=== PATIENT | female | born 1940 | race Caucasian/White ===

== ENCOUNTER 2020-07-10 07:29 | Emergency (ER) | payer MEDICARE, SELFPAY ==
--- NOTE | ~2020-07-10 | CT_ITS ---
EXAMINATION: CT hip LT wo con DATE: 07/10/2020 10:39 INDICATION: Left hip pain post fall TECHNIQUE: High resolution computed tomography (CT) of the left hip was performed without intravenous contrast. Additional sagittal and coronal reconstructions were performed. Automated exposure control and iterative reconstruction technique were employed. The dose-length product was 160.98 mGy-cm. COMPARISON: Left hip radiographs dated 07/10/2020 FINDINGS: 4 mm retrolisthesis L5 on S1 with severe associated disc height loss.. Bone alignment is otherwise no rmal. No fracture. Mild chondrocalcinosis and very mild osteoarthritis at the left hip. No left hip j oint effusion. Small amount of enthesopathic ossification at the ischial tuberosity origin of the lef t proximal hamstring tendons. Visualized portion of the bowels, uterus and bladder are unremarkable. No pathologically enlarged left pelvic or inguinal lymphadenopathy. IMPRESSION: 1. No fracture or other acute osseous abnormality. Reviewed, dictated and finalized at location A. [employer]
--- NOTE | ~2020-07-10 | XR_ITS ---
EXAMINATION: XR hip LT 2V w AP pelvis DATE: 07/10/2020 07:54 INDICATION: Left hip pain post fall TECHNIQUE: Anteroposterior view of the pelvis and anteroposterior and frog-leg lateral views of the l eft hip were obtained. COMPARISON: None. FINDINGS: Suggestion of a partially visualized mild lumbar levocurvature with likely moderate lower lumbar spon dylosis. Bone alignment is otherwise normal. No fracture. Mild chondrocalcinosis and mild osteoarthri tis at the bilateral hips. Soft tissues are unremarkable. IMPRESSION: 1. No acute osseous abnormality. Reviewed, dictated and finalized at location A. [employer]
[2020-07-10 07:30] VITALS: BP 172/87; PULSE 72; RESP 16; TEMP 36.6; O2SAT 99
--- NOTE | 2020-07-10 07:35 | ED.FALL ---
HPI - Fall General Chief Complaint: Extremity Injury, Lower Stated Complaint: fall/left hip pain Time Seen by Provider: 07/10/20 07:35 History of Present Illness HPI Narrative: 79 yo female w/ h/o RA presents to the ED for hip pain. She has pain in the left hip 2/2 to a fall yesterday. She had mild/moderate pain immediately after the fall and was able to ambulate without difficulty. When she awoke the next morning she had significantly more pain and was not able to ambulate. No numbness, weakness, wound. Related Data Home Medications Medication Instructions Recorded Confirmed etanercept [Enbrel] SUBCUT 07/10/20 folic acid 07/10/20 Allergies Allergy/AdvReac Type Severity Reaction Status Date / Time leflunomide [From Arava] Allergy Unknown Verified 07/12/20 11:17 Review of Systems Review of Systems: All systems reviewed & are unremarkable except as noted in HPI and below Constitutional: Constitutional: Denies chills, Denies fever(s) and Denies weakness Eyes: Eyes: Reports no additional eye complaints Cardiovascular: Cardiovascular: Denies chest pain Respiratory: Respiratory: Denies cough and Denies dyspnea Gastrointestinal: Gastrointestinal: Denies abdominal pain, Denies nausea and Denies vomiting Genitourinary: Genitourinary: Denies hematuria, Denies dysuria and Denies flank pain Musculoskeletal: Musculoskeletal: Denies back pain Neurologic: Denies confusion, Denies dizziness, Denies syncope, Denies numbness and Denies weakness Hematologic/Lymphatic: Hematologic/Lymphatic: Denies easy bleeding and Denies easy bruising [facility] Past Medical History Medical History (Updated 07/12/20 @ 13:07 by Adán Muñoz MD) Rheumatoid arteritis Social History Social History (Updated 07/12/20 @ 13:09 by Adán Muñoz MD) Smoking status: Never smoker Living arrangements: alone Exam Const: General: healthy appearing, no acute distress and alert Orientation/consciousness: patient oriented x3 HENMT: Head: normal to inspection Resp: Effort & Inspection: normal respiratory effort Auscultation: clear to auscultation bilaterally, no rales, no rhonchi and no wheezes Cardio: Jugular venous distension: no JVD Rate: regular rate Rhythm: regular rhythm Heart sounds: no murmurs GI: Inspection: non-distended GI Palp: Yes Soft to palpation and No Tenderness to palpation present (GI) Skin: General skin exam: normal color Wounds: no wounds Other: no bruising Neuro: General: patient oriented x3, moves all extremities, no focal motor deficits and CN's II-XI intact bilaterally Speech: normal speech Gait exam (Neuro): Normal gait present Extrem: General: normal to inspection Other: left hip tenderness Psych: Appearance: well kempt Affect: normal affect Course Vital Signs Vital signs: Vital Signs Temperature 36.6 C 07/10/20 07:30 Pulse Rate 72 07/10/20 07:30 Respiratory Rate 16 07/10/20 07:30 Blood Pressure 172/87 H 07/10/20 07:30 Pulse Oximetry 99 07/10/20 07:30 Temperature 36.6 C 07/10/20 07:30 Pulse Rate 82 07/10/20 11:40 Respiratory Rate 16 07/10/20 11:40 Blood Pressure 152/73 H 07/10/20 11:40 Pulse Oximetry 100 07/10/20 11:40 MDM - Fall MDM Narrative Medical decision making narrative: No fracture on x-ray. Pain seemed out of proportion. CT done to r/o occult fracture. Also negative. Ambulating without issue after nrco. Imaging Data Radiologist's impression: ITS Impressions Hip/Pelvis X-Ray 07/10/20 07:55 IMPRESSION: 1. No acute osseous abnormality. Hip CT 07/10/20 10:43 IMPRESSION: 1. No fracture or other acute osseous abnormality. Discharge Plan Discharge Clinical Impression: Contusion of left hip Patient Disposition: Home, Self-Care Condition: Stable Instructions: Hip Pain (ED) Prescriptions: New hydrocodone-acetaminophen 5-325 mg tablet 1 tablet PO Q6H PRN (Reason: pain) Qty: 10 RF: 0
[2020-07-10] MEDS: traMADol HCL (*CRX) 50 MG TABLET PO (08:00)
[2020-07-10] MEDS: HYDROcodone/acetaminophen (*CRX) 5-325 MG TABLET 1 TAB PO (10:25)
[2020-07-10 11:40] VITALS: BP 152/73; PULSE 82; RESP 16; O2SAT 100
== END 2020-07-10 11:40 | disposition home or self-care (01) ==
PROVIDERS: Emergency Provider Emergency Medicine; PCP Emergency Medicine
DX: S70.02XA Contusion of left hip, initial encounter (principal); W19.XXXA Unspecified fall, initial encounter
CPT/HCPCS: 73502; 73700; 99284; A9270

== ENCOUNTER 2020-07-12 10:59 | Emergency (ER) | payer MEDICARE, SELFPAY ==
[2020-07-12 11:02] VITALS: BP 177/102; PULSE 100; RESP 20; TEMP 36.6; O2SAT 100
--- NOTE | 2020-07-12 12:30 | PC.NURSE ---
called to patients bedside while providing care for patient in ajoining room. patient told this nurse that she has been in the er for an hour and is a great deal of pain and that a doctor has not been in to see her. this nurse explained to patient that md was involved in a full arrest for which the patient responded well i was here first
[2020-07-12] MEDS: oxyCODONE/ACETAMINOPHEN (*CRX) 5-325 MG TABLET 1 TABLET PO (12:53)
--- NOTE | 2020-07-12 13:04 | ED.LOWEXIN ---
HPI - Extremity Injury (Lower) General Chief Complaint: Extremity Injury, Lower Stated Complaint: hip pain Time Seen by Provider: 07/12/20 11:59 History of Present Illness HPI Narrative: Patient is a 79-year-old female who presents ER with left hip pain. Reports she fell on 07/09/2020. She fell directly onto her buttock/left hip. She came to the ER a day later to be evaluated. At that time she had an x-ray performed of her left hip and also had a CT scan of her left hip performed. She is prescribed [place] for home. She reports the [place] did not help her pain so she followed up with her PCP who told her to take her home meloxicam and then also prescribed a muscle relaxer. Patient reports pain is worse when she is attempting to sit and stand up. She has no focal weakness to the leg and she is not having numbness at this time. She did briefly have some shooting pain from her hip to her knee that was relieved with the muscle relaxer prescribed by her primary care office. She denies any development of bruising to her lower extremity or buttock. She has no saddle anesthesia or inability to urinate/stool. Related Data Home Medications Medication Instructions Recorded Confirmed etanercept [Enbrel] SUBCUT 07/10/20 folic acid 07/10/20 Allergies Allergy/AdvReac Type Severity Reaction Status Date / Time leflunomide [From Arava] Allergy Unknown Verified 07/12/20 11:17 Review of Systems Genitourinary: Genitourinary: Denies urinary incontinence Musculoskeletal: Musculoskeletal: Denies back pain, Reports arthralgias, Denies joint swelling and Reports muscle cramps Neurologic: Denies focal weakness and Denies numbness PMFSH Past Medical History Medical History (Updated 07/12/20 @ 14:49 by Oscar Olson MD) Rheumatoid arteritis Social History Social History (Updated 07/12/20 @ 13:09 by Adán Muñoz MD) Smoking status: Never smoker Living arrangements: alone Exam Narrative: Exam Narrative: GENERAL: Well-appearing, well-nourished, and in no acute distress. HEAD: Normocephalic, atraumatic. EXTREMITIES: Focused exam left lower extremity reveals that patient has full range of motion of the ankle/knee/hip. She has no reproducible tenderness with palpation at the hip. There is no evidence of bruising. Patient is able to perform straight leg raise without any issue or hesitation. Patient was ambulatory to the room in the ER. Back: No midline tenderness of the lumbar spine or sacral spine. No visual evidence of trauma. No paraspinal muscular tenderness in the lumbar sacral region. No gluteal tenderness. SKIN: Warm, dry, no rash. NEURO: Alert and oriented x3.. Course Course Emergency Course: Patient given a dose of Percocet while in the ER. I reviewed the x-rays and CT scans performed on her previous visit. Patient seems to have an unreasonable expectation for pain management given the fact that she is received narcotics outpatient as well as anti-inflammatories muscle relaxers. Patient is able to perform her activities of daily living including walking around and taking herself to the bathroom. Patient also is upset that she had arrived to the ER and was not seen before a cardiac arrest that arrived after her. Discussed with patient I feel her pain should continue to be treated with her Reevaluation(s) Reevaluation #1: Not much relief with percocet. Significantly improved with toradol IM. Has already scheduled f/u with Dr. Queen next week. Recommend patient continue come meloxicam and cyclobenzaprine. Discussed that pain is responsive to anti-inflammatory medications given improvement with toradol. Discussed I would not discharge her with ketorolac as I feel this is a particularly strong anti-inflammatory that could cause stomach ulcerations as well as kidney injury taken for a prolonged period. Feel meloxicam is a safer medication for this patient. Discussed that patient could have periosteal contusion or potent
--- NOTE | 2020-07-12 13:21 | PC.NURSE ---
1253- took pain pill into patient. Patient asked if we could give her something IV instead. Informed her I would ask the MD. Dr. Olson aware and advised to give po pain pill. Pt response was I would prefer something IV now I am going to have to lay here and wait for it to help
[2020-07-12 13:29] VITALS: BP 189/84; PULSE 82
[2020-07-12 13:30] VITALS: BP 192/89; PULSE 93
[2020-07-12 13:32] VITALS: BP 173/101; PULSE 99
[2020-07-12] MEDS: KETOROLAC 30 MG/ML VIAL (*BKC) IM (13:41)
== END 2020-07-12 15:03 | disposition home or self-care (01) ==
PROVIDERS: Emergency Provider Emergency Medicine; PCP Emergency Medicine
DX: S70.02XA Contusion of left hip, initial encounter (principal); W19.XXXA Unspecified fall, initial encounter
CPT/HCPCS: 96372; 99283; A9270; J1885

== ENCOUNTER 2021-10-02 09:37 | Outpatient (CLI) | payer MEDICARE, SELFPAY ==
[2021-10-02 16:41] LABS: Albumin Level 4.1 g/dL (3.5-5.1); Anion Gap 9 mmol/L (8-16); Blood Urea Nitrogen 15 mg/dL (7-17); Calcium 9.2 mg/dL (8.4-10.2); Carbon Dioxide 27 mmol/L (22-30); Chloride 100 mmol/L (98-107); Estimated Glomerular Filt Rate > 60; Glucose 100 mg/dL (65-110); Phosphorus 3.5 mg/dL (2.5-4.5); Potassium 4.7 mmol/L (3.4-5.0); Sodium 136 mmol/L (137-145)
[2021-10-02 16:53] LABS: Parathyroid Intact 57.1 pg/mL (7.5-53.5)
[2021-10-02 16:57] LABS: Free T4 Free Thyroxine 1.18 ng/mL (0.78-2.19)
[2021-10-02 17:12] LABS: Thyroid Stimulating Hormone 0.936 uIU/mL (0.465-4.680)
== END 2021-10-02 09:38 | disposition home or self-care (01) ==
LOC: ANHWCLAB 09:40
PROVIDERS: PCP Family Medicine; Referring Provider Internal Medicine Endocrinology, Diabetes & Metabolism; Visit Provider Internal Medicine Endocrinology, Diabetes & Metabolism
DX: R79.89 Other specified abnormal findings of blood chemistry (principal); D47.2 Monoclonal gammopathy; E04.1 Nontoxic single thyroid nodule; M81.0 Age-related osteoporosis without current pathological fracture
CPT/HCPCS: 36415; 80069; 82306; 83970; 84439; 84443

== ENCOUNTER 2021-10-23 14:02 | Outpatient (CLI) | payer MEDICARE, SELFPAY ==
--- NOTE | ~2021-10-23 | XR_ITS ---
XR chest 2V 10/23/2021 14:21 Indication: Cough, fever and chills Procedure: 2 view chest Comparison: No prior studies for comparison. Findings: Bibasilar airspace disease. Cardiomegaly. There is atherosclerosis and ectasia of the aorta . No acute osseous abnormality. Impression: 1: Bibasilar infiltrates may represent atelectasis/scarring or pneumonia. Reviewed, dictated and finalized at location B. Impression: 1: Bibasilar infiltrates may represent atelectasis/scarring or pneumonia.
== END 2021-10-23 14:03 | disposition home or self-care (01) ==
PROVIDERS: PCP Family Medicine; Visit Provider Nurse Practitioner Family
DX: R05.9 Cough, unspecified (principal); R91.8 Other nonspecific abnormal finding of lung field
CPT/HCPCS: 71046

== ENCOUNTER 2021-11-01 10:12 | Emergency (ER) | payer MEDICARE, SELFPAY ==
--- NOTE | ~2021-11-01 | XR_ITS ---
XR chest 2V DATE: 11/01/2021 11:03 INDICATION: Cough, fever for 1.5 weeks. Nonsmoker. TECHNIQUE: 2 views COMPARISON: 10/23/2021 PA and lateral chest FINDINGS: Bilateral hyperinflation. There is mild discoid atelectasis or scarring at the right lung b ase. No pulmonary infiltrate or consolidation, pleural effusion or pulmonary vascular congestion or p neumothorax is detected. Heart size appears within normal limits. No hilar or mediastinal enlargement . Aortic arch calcification. There is osteopenia. There is mild dextroscoliosis of the thoracic spine and levoscoliosis of the lum bar spine. IMPRESSION: Bilateral hyperinflation; no active cardiopulmonary disease Reviewed, dictated and finalized at location A.
[2021-11-01 10:25] VITALS: BP 153/72; PULSE 86; RESP 20; TEMP 37.2; O2SAT 100
--- NOTE | 2021-11-01 10:50 | ED.GENADULT ---
HPI - General Adult General Chief complaint: Upper Respiratory Infection Stated complaint: fever/chills Source: patient Mode of arrival: ambulatory Limitations: no limitations History of Present Illness HPI narrative: Patient presents for evaluation of fever. She states she was on a trip to [facility] on 10/16/21 where she was out boating. She states that same day she developed chills. She returned home on 10/18/21 and took a home COVID test on 10/19/21 which was negative. She contacted her primary care provider's office and received a prescription for an antitussive with codeine. She repeated her test on 10/22/21 which was also negative. She went to see her PCP on 10/23/21 and had mono, strep and flu which were negative. CXR showed bibasilar infiltrates. She was given a script for cefdinir which she has been taking as directed. She states her cough has improved. She continues to have chills. Last night she had a low grade fever of 100.1F. She denies sore throat, otalgia, shortness of breath, nausea, vomiting and diarrhea. No personal hx of COVID. She received her COVID vaccinations and two boosters. Overall, she feels weak and run-down. Related Data Home Medications Medication Instructions Recorded Confirmed calcium carbonate 600 mg-vitamin 1 tablet PO .QD 07/25/21 11/05/21 D3 10 mcg (400 unit) chewable tablet (Calcium 600 with Vitamin D3) cholecalciferol (vitamin D3) 25 25 mcg PO DAILY 07/25/21 11/05/21 mcg (1,000 unit) capsule Allergies Allergy/AdvReac Type Severity Reaction Status Date / Time leflunomide [From Arava] Allergy Unknown Verified 11/24/21 09:48 benzonatate AdvReac Intermediate n/a Verified 11/24/21 09:48 Review of Systems Review of Systems: CONSTITUTIONAL: Reports fever and chills. EYES: Denies visual changes, redness, or discharge. ENT: Denies rhinorrhea, congestion, sore throat, or otalgia. CARDIOVASCULAR: Denies chest pain, palpitations, or edema. RESPIRATORY: Denies cough or dyspnea. GASTROINTESTINAL: Denies abdominal pain, nausea, vomiting, or diarrhea. GENITOURINARY: Denies dysuria or hematuria. SKIN: Denies rash or itching. MUSCULOSKELETAL: Denies back pain, joint pain, or myalgia. NEUROLOGIC: Reports generalized weakness. Denies headache, numbness, dizziness PSYCHIATRIC: Denies anxiety or depression. 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 HEAD: Normocephalic, atraumatic. EYES: PERRLA and EOMI. ENT: Nares clear, no rhinorrhea or epistaxis. Mucous membranes moist. Oropharynx without tonsillar hypertrophy exudate or other lesions. Bilateral TMs pearly brewer nonbulging NECK: Supple. No adenopathy or masses. No carotid bruits or JVD CHEST: Clear to auscultation. No respiratory distress. No wheezes rales or rhonchi HEART: Regular rate and rhythm. No murmur heard. Normal peripheral pulses. ABDOMEN: Soft, nontender
== END 2021-11-01 11:27 | disposition home or self-care (01) ==
PROVIDERS: Emergency Provider Nurse Practitioner; PCP Family Medicine
DX: Z87.01 Personal history of pneumonia (recurrent) (principal); Z20.822 Contact with and (suspected) exposure to COVID-19; I10 Essential (primary) hypertension; M81.0 Age-related osteoporosis without current pathological fracture; M06.9 Rheumatoid arthritis, unspecified
CPT/HCPCS: 71046; 87081; 87426; 87804; 87880; 99213; C9803; G0463

== ENCOUNTER 2021-11-24 15:43 | Outpatient (CLI) | payer MEDICARE, SELFPAY ==
--- NOTE | ~2021-11-24 | US_ITS ---
EXAMINATION: US thyroid DATE: 11/24/2021 16:05 INDICATION: Monoclonal gammopathy TECHNIQUE: Multiple ultrasound images of the thyroid were obtained. COMPARISON: None. FINDINGS: The right thyroid lobe measures 4.7 x 1.7 x 1.6 cm. The left thyroid lobe measures 3.9 x 1.3 x 1.2 c m. There are multiple bilateral thyroid nodules, many of which are TI-RADS 1 cystic or almost entire ly cystic with peripheral small echogenic foci with comet tail artifact likely representing colloid c yst with inspissated colloid. There is a 1 cm wider than predominantly solid hypoechoic nodule with s mooth margins and with few peripheral tiny echogenic foci (TI-RADS 5, highly suspicious , FNA if >=1. 0 cm, annual followup is >0.5 cm). There are a few additional smaller solid or predominantly solid no dules, the next largest measuring 5 mm in the left thyroid. IMPRESSION: 1. Multinodular goiter. Recommend ultrasound-guided biopsy of the largest 1 cm TI RADS 5 nodule in th e right thyroid lobe. Reviewed, dictated and finalized at location B. IMPRESSION: 1. Multinodular goiter. Recommend ultrasound-guided biopsy of the largest 1 cm TI RADS 5 nodule in the right thyroid lobe.
== END 2021-11-24 15:44 | disposition home or self-care (01) ==
LOC: ANHIMG 15:46
PROVIDERS: PCP Family Medicine; Visit Provider Internal Medicine Endocrinology, Diabetes & Metabolism
DX: E04.2 Nontoxic multinodular goiter (principal); M81.0 Age-related osteoporosis without current pathological fracture; D47.2 Monoclonal gammopathy
CPT/HCPCS: 76536

== ENCOUNTER 2021-11-25 12:46 | Outpatient (CLI) | payer MEDICARE, SELFPAY ==
--- NOTE | ~2021-11-25 | XR_ITS ---
XR chest 2V DATE: 11/25/2021 13:13 INDICATION: Recent pneumonia TECHNIQUE: PA and lateral views COMPARISON: 11/01/2021 2 view chest 11/02/2021 2 view chest FINDINGS: Prominent bilateral hyperinflation consistent with obstructive airways disease. There is co mplete resolution of bilateral lower lung infiltrate and/or atelectasis since 11/02/2021. Mild bilateral apical capping. Mild discoid atelectasis or scarring at the right lung base; otherwise no pulmonary infiltrate or consolidation, pleural effusion or pulmonary vascular congestion or pneum othorax. Heart size is within normal range. Diffuse osteopenia. Thoracic spine dextroscoliosis. IMPRESSION: Bilateral hyperinflation Mild discoid atelectasis or scarring at the right lung base; otherwise no active cardiopulmonary dise ase Reviewed, dictated and finalized at location A. IMPRESSION: Bilateral hyperinflation Mild discoid atelectasis or scarring at the right lung base; otherwise no activ e cardiopulmonary disease
== END 2021-11-25 12:47 | disposition home or self-care (01) ==
PROVIDERS: PCP Family Medicine; Visit Provider Physician Assistant Medical
DX: J18.9 Pneumonia, unspecified organism (principal); R91.8 Other nonspecific abnormal finding of lung field
CPT/HCPCS: 71046

== ENCOUNTER 2021-11-28 14:48 | Outpatient (CLI) | payer MEDICARE, SELFPAY ==
[2021-11-28 15:06] LABS: Eosinophils Absolute Auto 0.1 K/mm3 (0-0.3); Eosinophils Percent Auto 2.6 % (0-4.4); Hematocrit 37.3 % (37.0-47.0); Hemoglobin 12.1 g/dL (12.0-15.0); Immature Granulocyte Absolute 0.01 K/mm3 (0.00-0.031); Immature Granulocyte Percent A 0.3 % (0-0.5); Lymphocytes Absolute Auto 1.65 K/mm3 (0.9-3.2); Lymphocytes Percent Auto 42.1 % (18.3-44.2); Mean Corpuscular HGB Conc 32.4 g/dl (32-36); Mean Corpuscular Hemoglobin 28.5 pg (26-34); Mean Platelet Volume 8.6 fl (7.4-10.4); Monocytes Absolute Auto 0.5 K/mm3 (0.1-0.6); Monocytes Percent Auto 12.5 % (2.6-8.5); Neutrophils Absolute Auto 1.6 K/mm3 (1.3-6.7); Neutrophils Percent Auto 41.5 % (45.5-73.1); Platelet Count Result 205 k/mm3 (150-375); Red Blood Count 4.24 M/mm3 (4.2-5.4); White Blood Count 3.9 K/mm3 (4.5-10.0)
[2021-11-28 16:21] LABS: Alanine Aminotransferase 18 U/L (6-35); Albumin Level 4.2 g/dL (3.5-5.1); Alkaline Phosphatase 53 U/L (38-126); Anion Gap 4 mmol/L (8-16); Aspartate Amino Transferase 36 U/L (14-36); Bilirubin,Total 0.2 mg/dL (0.2-1.3); Blood Urea Nitrogen 28 mg/dL (7-17); Calcium 9.3 mg/dL (8.4-10.2); Carbon Dioxide 30 mmol/L (22-30); Chloride 97 mmol/L (98-107); Estimated Glomerular Filt Rate > 60; Glucose 103 mg/dL (65-110); Potassium 4.3 mmol/L (3.4-5.0); Sodium 131 mmol/L (137-145)
[2021-11-28 16:32] LABS: Parathyroid Intact 30.7 pg/mL (7.5-53.5)
[2021-11-28 16:42] LABS: Immunoglobulin G 1664 mg/dL (700-1600); Immunoglobulin M 136 mg/dL (40-230)
[2021-11-28 17:05] LABS: Immunoglobulin A 990 mg/dL (70-400)
[2021-12-03 08:40] LABS: Kappa\\Lambda Light Chains 1.97 (0.26-1.65); Lambda Light Chain 30.4 mg/L (5.7-26.3)
[2021-12-04 13:15] LABS: Albumin 3.7 g/dL (3.8-4.8); Alpha 1 Globulin 0.3 g/dL (0.2-0.3); Alpha 2 Globulin 0.6 g/dL (0.5-0.9); Beta 1 Globulin 0.5 g/dL (0.4-0.6); Gamma Globulin 1.7 g/dL (0.8-1.7); Protein, Total 7.4 g/dL (6.1-8.1)
== END 2021-11-28 14:49 | disposition home or self-care (01) ==
PROVIDERS: PCP Family Medicine; Visit Provider Internal Medicine Hematology & Oncology
DX: E83.52 Hypercalcemia (principal); D47.2 Monoclonal gammopathy
CPT/HCPCS: 36415; 80053; 82784; 83883; 83970; 84155; 84165; 85025

== ENCOUNTER 2022-01-01 09:33 | Outpatient (CLI) | payer MEDICARE, SELFPAY ==
--- NOTE | ~2022-01-01 | MM_ITS ---
EXAMINATION: MM screening pacheco BI w dylon HISTORY: Screening mammogram TECHNIQUE: Craniocaudal and mediolateral oblique 3-D tomosynthesis images were obtained and synthetic 2-D images were generated. CAD analysis was submitted and interpreted. COMPARISON: 04/04/2019 bilateral screening mammogram BREAST PARENCHYMAL COMPOSITION: The breasts are heterogeneously dense, which may obscure small masses . FINDINGS: There is no evidence of suspicious mass, calcification, or architectural distortion to sugg est malignancy in either breast. There has been no suspicious interval change. IMPRESSION: 1. No mammographic evidence of malignancy. 2. Recommend routine screening mammography in one year. BI-RADS Category 1: Negative Reviewed, dictated and finalized at location A.
== END 2022-01-01 09:34 | disposition home or self-care (01) ==
PROVIDERS: PCP Family Medicine; Visit Provider Family Medicine
DX: Z12.31 Encounter for screening mammogram for malignant neoplasm of breast (principal)
CPT/HCPCS: 77063; 77067

== ENCOUNTER 2022-03-03 13:39 | Emergency (ER) | payer MEDICARE, SELFPAY ==
--- NOTE | 2022-03-03 13:46 | ED.EAR ---
HPI - Ear Problem General Chief complaint: Ear Stated complaint: CLOGGED EAR Time Seen by Provider: 03/03/22 13:53 Source: patient and RN notes reviewed Mode of arrival: ambulatory Limitations: no limitations History of Present Illness HPI Narrative: 81-year-old female presents to [facility] with a clogged right ear since getting off a plane about a week ago. For the last 4 days has been taking Claritin. No other treatment prior to arrival. Denies chest pain. Denies fevers. MD Complaint: decreased hearing Related Data Home Medications Medication Instructions Recorded Confirmed calcium carbonate 600 mg-vitamin 1 tablet PO .QD 07/25/21 03/03/22 D3 10 mcg (400 unit) chewable tablet (Calcium 600 with Vitamin D3) cholecalciferol (vitamin D3) 25 25 mcg PO DAILY 07/25/21 03/03/22 mcg (1,000 unit) capsule loratadine 10 mg tablet (Claritin) 10 mg PO DAILY 03/02/22 03/03/22 Allergies Allergy/AdvReac Type Severity Reaction Status Date / Time leflunomide [From Arava] Allergy Unknown Verified 03/03/22 13:48 benzonatate AdvReac Intermediate n/a Verified 03/03/22 13:48 Review of Systems Review of Systems: All systems reviewed & are unremarkable except as noted in HPI and below Constitutional: Constitutional: Reports no additional constitutional complaints, Denies chills and Denies fever(s) Eyes: Eyes: Reports no additional eye complaints ENT: Reports as per HPI and Reports otalgia (Right) Cardiovascular: Cardiovascular: Reports no additional cardiovascular complaints Respiratory: Respiratory: Reports no additional respiratory complaints Gastrointestinal: Gastrointestinal: Reports no additional gastrointestinal complaints Musculoskeletal: Musculoskeletal: Reports no additional musculoskeletal complaints Integumentary/Breasts: Skin/Breast: Reports system reviewed and no additional complaints, except as docu Neurologic: Reports system reviewed and no additional complaints, except as documented Psychiatric: Psychiatric: Reports no additional psychiatric complaints Allergic/Immunologic: Allergic/Immunologic: Reports no additional allergic/immunologic complaints PMFSH Past Medical History Medical History Bilateral hand pain End of life care Essential hypertension 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) Osteoporosis 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 There is no relevant family history pertinent to the patient complaint. Exam Const: General: healthy appearing, no acute distress, alert and well nourished Nutritional Appearance: well nourished Orientation/consciousness: patient oriented x3 Limitations: no limitations HENMT: Head: normal to inspection Ears: external ears normal, TM's normal bilaterally (Left), EAC's normal and TM abnormal bulging on the right and with fluid behind the TM on the right; not erythematous Face and sinus: normal facial exam Mouth: Yes Normal oral and palatal mucosa present, Yes lip nor
[2022-03-03 13:53] VITALS: BP 140/73; PULSE 75; RESP 16; TEMP 36.8; O2SAT 100
== END 2022-03-03 14:05 | disposition home or self-care (01) ==
PROVIDERS: Emergency Provider Nurse Practitioner; PCP Family Medicine
DX: H65.01 Acute serous otitis media, right ear (principal); I10 Essential (primary) hypertension; M81.0 Age-related osteoporosis without current pathological fracture; M05.9 Rheumatoid arthritis with rheumatoid factor, unspecified; D80.3 Selective deficiency of immunoglobulin G [IgG] subclasses; D47.2 Monoclonal gammopathy
CPT/HCPCS: 99213; G0463

== ENCOUNTER 2022-06-03 09:02 | Outpatient (CLI) | payer MEDICARE, SELFPAY ==
[2022-06-03 09:20] LABS: Hematocrit 43.4 % (37.0-47.0); Mean Corpuscular HGB Conc 32.3 g/dl (32-36); Mean Corpuscular Hemoglobin 29.2 pg (26-34); Mean Corpuscular Volume 90.4 fl (80-100); Mean Platelet Volume 9.3 fl (7.4-10.4); Platelet Count Result 145 k/mm3 (150-375); Red Cell Distribution Width 13.6 % (11.5-14.5); White Blood Count 2.5 K/mm3 (4.5-10.0)
[2022-06-03 09:36] LABS: Band Neutrophils Percent 2 % (0-6); Eosinophils Absolute Manual 0.05 K/mm3 (0.02-0.5); Eosinophils Percent Manual 2 % (0-4); Giant Platelets Present; Lymphocytes Absolute Manual 1.52 K/mm3 (1.1-4.5); Monocytes Absolute Manual 0.25 K/mm3 (0.1-0.90); Monocytes Percent Manual 10 % (3-9); Neutrophils Absolute Manual 0.67 K/mm3 (1.7-7.2); Neutrophils Percent Manual 25 % (46-73); Platelet Estimate Adequate (Adequate); Schistocytes None Seen (NORMAL); Total Cells Counted 100
[2022-06-03 10:22] LABS: Alanine Aminotransferase 23 U/L (6-35); Albumin Level 4.2 g/dL (3.5-5.1); Alkaline Phosphatase 48 U/L (38-126); Anion Gap 3 mmol/L (8-16); Aspartate Amino Transferase 33 U/L (14-36); Bilirubin,Total 0.4 mg/dL (0.2-1.3); Blood Urea Nitrogen 17 mg/dL (7-17); Calcium 8.9 mg/dL (8.4-10.2); Carbon Dioxide 31 mmol/L (22-30); Chloride 99 mmol/L (98-107); Estimated Glomerular Filt Rate 60; Glucose 103 mg/dL (65-110); Potassium 4.3 mmol/L (3.4-5.0); Sodium 133 mmol/L (137-145)
[2022-06-03 11:01] LABS: Immunoglobulin A 783 mg/dL (70-400); Immunoglobulin G 1412 mg/dL (700-1600); Immunoglobulin M 120 mg/dL (40-230)
[2022-06-05 17:34] LABS: Albumin 3.9 g/dL (3.8-4.8); Alpha 1 Globulin 0.3 g/dL (0.2-0.3); Alpha 2 Globulin 0.6 g/dL (0.5-0.9); Beta 1 Globulin 0.6 g/dL (0.4-0.6); Gamma Globulin 1.5 g/dL (0.8-1.7); Protein, Total 7.5 g/dL (6.1-8.1)
[2022-06-06 10:10] LABS: Kappa\\Lambda Light Chains 1.87 (0.26-1.65); Lambda Light Chain 27.6 mg/L (5.7-26.3)
== END 2022-06-03 09:03 | disposition home or self-care (01) ==
LOC: ANHLAB 09:04
PROVIDERS: PCP Family Medicine; Visit Provider Internal Medicine Hematology & Oncology
DX: D47.2 Monoclonal gammopathy (principal)
CPT/HCPCS: 36415; 80053; 82784; 83883; 84155; 84165; 85025

== ENCOUNTER 2022-09-14 08:48 | Outpatient (CLI) | payer MEDICARE, SELFPAY ==
--- NOTE | ~2022-09-14 | XR_ITS ---
Right foot Technique: AP and lateral weightbearing views were obtained. Clinical History: Leukopenia Findings: No acute fracture or dislocation is seen. There is hallux valgus with mild degenerative mike nge the first MTP joint. Suggestion of erosive change versus degenerative change at the interphalange al joint of the great toe.. Soft tissues are unremarkable. Impression: Hallux valgus with mild degenerative change of the first MTP joint. Possible erosive changes at the interphalangeal joint of the great toe versus degenerative change. Co nsider gouty arthropathy. Correlate with any relevant clinical history/symptoms. Reviewed, dictated and finalized at location . Impression: Hallux valgus with mild degenerative change of the first MTP joint. Possible erosive changes at the interphalangeal joint of the great toe versus d egenerative change. Consider gouty arthropathy. Correlate with any relevant cli nical history/symptoms.
--- NOTE | ~2022-09-14 | XR_ITS ---
Left foot Technique: AP and lateral weightbearing views were obtained. Clinical History: Leukopenia Findings: No acute fracture or dislocation is seen. Osseous alignment is anatomic. Joint spaces are p reserved without erosive or degenerative change. Soft tissues are unremarkable. Impression: Unremarkable left foot radiographs. Reviewed, dictated and finalized at location . Impression: Unremarkable left foot radiographs.
[2022-09-14 09:46] LABS: Hematocrit 42.1 % (37.0-47.0); Hemoglobin 13.7 g/dL (12.0-15.0); Mean Corpuscular HGB Conc 32.5 g/dl (32-36); Mean Corpuscular Hemoglobin 29.8 pg (26-34); Mean Corpuscular Volume 91.5 fl (80-100); Mean Platelet Volume 8.7 fl (7.4-10.4); Platelet Count Result 221 k/mm3 (150-375); Red Cell Distribution Width 14.1 % (11.5-14.5)
[2022-09-14 09:48] LABS: Appearance Urine Clear (Clear); Bilirubin Urine Negative (Negative); Blood Urine Negative (Negative); Color Urine Yellow (Yellow); Glucose Urine UA Negative (Negative); Ketones Urine Trace mg/dL (Negative); Leukocyte Esterase Ur Negative LEU/UL (Negative); Nitrate Urine Negative (Negative); Protein Urine Negative (Negative); Specific Grav Ur 1.011 (1.001-1.035); Urobilinogen Urine 0.2 mg/dL (<2.0)
[2022-09-14 09:51] LABS: Add Urine Microscopic? NO
[2022-09-14 10:04] LABS: Alanine Aminotransferase 32 U/L (6-35); Albumin Level 4.1 g/dL (3.5-5.1); Alkaline Phosphatase 48 U/L (38-126); Anion Gap 5 mmol/L (8-16); Aspartate Amino Transferase 33 U/L (14-36); Bilirubin,Total 0.6 mg/dL (0.2-1.3); Blood Urea Nitrogen 18 mg/dL (7-17); CRP 0.9 mg/dL (<1.0); Calcium 8.9 mg/dL (8.4-10.2); Carbon Dioxide 31 mmol/L (22-30); Chloride 99 mmol/L (98-107); Estimated Glomerular Filt Rate 60; Glucose 102 mg/dL (65-110); Potassium 4.4 mmol/L (3.4-5.0); Sodium 135 mmol/L (137-145); Uric Acid 4.4 mg/dL (2.5-7.5)
[2022-09-14 10:07] LABS: Complement C3 100 mg/dL (88-165)
[2022-09-14 10:34] LABS: Erythrocyte Sedimentation Rate 21 mm/hr (0-20)
[2022-09-17 09:38] LABS: SM Antibody <1.0; SM/RNP Antibody <1.0
[2022-09-18 12:02] LABS: Anti Cyclic Citrullinated Pept >250 Units (<20)
== END 2022-09-14 08:49 | disposition home or self-care (01) ==
PROVIDERS: PCP Family Medicine; Visit Provider Internal Medicine
DX: D47.2 Monoclonal gammopathy (principal); D84.81 Immunodeficiency due to conditions classified elsewhere; M05.79 Rheumatoid arthritis with rheumatoid factor of multiple sites without organ or systems involvement; M15.9 Polyosteoarthritis, unspecified; M20.11 Hallux valgus (acquired), right foot
CPT/HCPCS: 36415; 73620; 80053; 81003; 84550; 85027; 85652; 86140; 86160; 86200; 86225; 86235

== ENCOUNTER 2022-10-09 11:00 | Outpatient (CLI) | payer MEDICARE, SELFPAY ==
--- NOTE | ~2022-10-09 | US_ITS ---
EXAMINATION: US thyroid DATE: 10/09/2022 11:45 INDICATION: Nontoxic single thyroid nodule. TECHNIQUE: Multiple ultrasound images of the thyroid were obtained. COMPARISON: Ultrasound 11/24/2021 FINDINGS: The right thyroid lobe measures 5.1 x 1.8 x 1.5 cm. The left thyroid lobe measures 5.4 x 1.0 x 1.3 c m. In the right thyroid lobe, there is 11 mm mixed cystic and solid, hypoechoic, wider than tall nod ule with smooth margin without echogenic foci (TI-RADS TR3). In the left thyroid lobe, there is a 7 m m solid, hypoechoic, wider than tall nodule with smooth margin and punctate echogenic foci (TR5). The re are multiple subcentimeter nodules in thyroid. IMPRESSION: 1. Small thyroid nodules. Consider thyroid ultrasound in 1 year. Reviewed, dictated and finalized at location E.
== END 2022-10-09 11:01 | disposition home or self-care (01) ==
PROVIDERS: PCP Family Medicine; Visit Provider Internal Medicine Endocrinology, Diabetes & Metabolism
DX: E04.1 Nontoxic single thyroid nodule (principal)
CPT/HCPCS: 76536

== ENCOUNTER 2022-11-16 09:30 | Emergency (ER) | payer MEDICARE, SELFPAY ==
--- NOTE | ~2022-11-16 | XR_ITS ---
EXAMINATION: XR chest 2V DATE: 11/16/2022 10:19 INDICATION: Cough. Fever. TECHNIQUE: Frontal and lateral views of the chest were obtained. COMPARISON: Chest 2 views 11/25/2021 FINDINGS: The chest demonstrates clear lungs without pneumonia, pleural effusion, or pneumothorax. Th e heart size is normal. IMPRESSION: 1. No acute cardiopulmonary disease. Reviewed, dictated and finalized at location A.
[2022-11-16 09:36] VITALS: BP 138/87; PULSE 91; RESP 16; TEMP 37.3; O2SAT 100
--- NOTE | 2022-11-16 09:58 | ED.URI ---
HPI - URI/Sore Throat General Chief Complaint: Upper Respiratory Infection Stated Complaint: FEVER/TIGH CHEST/COUGH Time Seen by Provider: 11/16/22 10:22 Source: patient and RN notes reviewed Mode of arrival: ambulatory Limitations: no limitations History of Present Illness HPI Narrative: 81-year-old female with history of RA presents with concern for cough, fever, fatigue, and tight chest. She reports she had pneumonia last year. She reports she took Mucinex. She denies known sick contacts. She denies nausea, vomiting, diarrhea. She denies body aches, chills, sweats. She reports some nasal congestion. MD elicited complaint: fever and cough Related Data Home Medications Medication Instructions Recorded Confirmed calcium carbonate 600 mg-vitamin 1 tablet PO .QD 07/25/21 09/24/22 D3 10 mcg (400 unit) chewable tablet (Calcium 600 with Vitamin D3) cholecalciferol (vitamin D3) 25 25 mcg PO DAILY 07/25/21 09/24/22 mcg (1,000 unit) capsule Allergies Allergy/AdvReac Type Severity Reaction Status Date / Time leflunomide [From Arava] Allergy Unknown Verified 09/24/22 09:57 benzonatate AdvReac Intermediate n/a Verified 09/24/22 09:57 Review of Systems Review of Systems: CONSTITUTIONAL: Reports malaise, low-grade fever. Denies chills, sweats EYES: Denies visual changes, redness, or discharge. ENT: Reports rhinorrhea. Denies congestion, sinus pain, otalgia and sore throat. CARDIOVASCULAR: Denies chest pain, palpitations, or edema. RESPIRATORY: Reports cough, chest congestion. Denies dyspnea. GASTROINTESTINAL: Denies abdominal pain, nausea, vomiting, diarrhea SKIN: Denies rash or itching. MUSCULOSKELETAL: Denies myalgia. NEUROLOGIC: Denies headache. 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 Surgical History Surgical History History of cataract surgery Family History Family History Father Heart disease Grandparent Cancer Grandparent Cancer Mother Social History Social History Smoking status: Never smoker Second hand tobacco smoke exposure: Yes Alcohol intake: current Alcohol use details: occasionally Substance use: never Substance use type: does not use Lack of Transportation: No Lack of Food: Never True Current Housing: I Have Housing Concerned About Future Housing: No Difficulty Paying Gas/Electric Bills: No Difficulty Paying for Meds: No Currently Unemployed: Decline to Answer Education: Master's Degree or Higher Living arrangements: alone 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 There is no relevant family history pertinent to the presenting complaint Exam Narrative: GENERAL: Well-appearing, well-nourished, and in no acute distress. HEAD: Normocephalic EYES: PERRLA, conjunctivae clear ENT: Nares clear, clear discharge. Mucous membranes moist. TM pearly brewer with sharp light reflex bilaterally; no tragal tenderness. Oropharynx not erythematous without lesions. Tonsils not enlarged and without exudate, no drooling, no hoarseness, no trismus, uvula midline. NECK: Supple. No lymphadenopathy CHEST: Clear to auscultation, breath norma
== END 2022-11-16 10:43 | disposition home or self-care (01) ==
PROVIDERS: Emergency Provider Nurse Practitioner; PCP Family Medicine
DX: U07.1 COVID-19 (principal); I10 Essential (primary) hypertension; D80.3 Selective deficiency of immunoglobulin G [IgG] subclasses; M85.80 Other specified disorders of bone density and structure, unspecified site; M05.79 Rheumatoid arthritis with rheumatoid factor of multiple sites without organ or systems involvement
CPT/HCPCS: 71046; 87081; 87426; 87804; 87880; 99213; C9803; G0463

== ENCOUNTER 2022-11-24 14:01 | Outpatient (CLI) | payer MEDICARE, SELFPAY ==
--- NOTE | ~2022-11-24 | DEXA_ITS ---
Bone Density Report Name: EUGENIA OH Age: 81 Sex: Female Ethnicity: White Date of : 1940 Indication: postmenopausal; screening for osteoporosis; height loss; prior fracture; rheumatoid arthritis; Referring Provider: INNA PAN Study: Bone densitometry was performed. Exam Date: November 24, 2022 Accession number: [id number] Bone Density: Region BMD T-score Z-score Classification AP Spine(L1-L4) 0.901 -1.3 1.4 Osteopenia Femoral Neck (Left) 0.545 -2.7 -0.4 Osteoporosis Total Hip (Left) 0.667 -2.3 -0.2 Osteopenia Femoral Neck (Right) 0.599 -2.3 0.0 Osteopenia Total Hip (Right) 0.695 -2.0 0.0 Osteopenia Total Hip Mean 0.681 -2.2 -0.1 Osteopenia World Health Organization criteria for BMD impression classify patients as: Normal (T-score at or above -1.0), Osteopenia (T-score between -1.0 and -2.5), or Osteoporosis (T-score at or below -2.5). 10-year Fracture Risk: FRAX not reported because: Some T-score for Spine Total or Hip Total or Femoral Neck at or below -2.5 Clinical Information Provided by Patient: Has had a low trauma fracture Has rheumatoid arthritis Has used the following medications: Vitamin D, Calcium Patient maximum height was 66 Menopause Age: 52 Drinks caffeinated beverages Onset of menses at age 15 Number of children 0 Impression: The patient has established osteoporosis, based on the Left Femoral Neck T-score and the existence of a prior fracture. The patient has risk factors, including: previous fracture. Discussion: HIGH RISK OF FRACTURE. BONE DENSITY IS UNDESIRABLY LOW AT ONE OR MORE SKELETAL SITES, CONSISTENT WITH POSTMENOPAUSAL OSTEOPOROSIS. This patient's lowest T-score, in a patient who has previously fractured, meets the World Health Organization's (WHO) criteria for severe osteoporosis. In untreated patients, the risk of osteoporotic fracture increases approximately two-fold for each 1.0 SD decrease in T-score. Low bone density is not the only risk factor for fracture; also consider factors such as patient's age, frailty or poor health, risk of falling, risk of injury, previous osteoporotic fracture, family history of osteoporosis, cigarette smoking, low body weight, etc. Not everyone with low bone mineral density has osteoporosis; osteomalacia and other metabolic bone disorders should also be considered. Patients who have osteoporosis should be evaluated for specific diseases and conditions (secondary causes) that may cause or contribute to bone loss. The [place] Association of Clinical Endocrinologists (AACE) and National Osteoporosis Foundation (NOF) recommend pharmacologic intervention for all postmenopausal women whose T-score is in this range. The patient should follow a healthful lifestyle (good nutrition with adequate calcium and vitamin D, and appropriate
== END 2022-11-24 14:02 | disposition home or self-care (01) ==
PROVIDERS: PCP Family Medicine; Visit Provider Internal Medicine Endocrinology, Diabetes & Metabolism
DX: M81.0 Age-related osteoporosis without current pathological fracture (principal); M85.88 Other specified disorders of bone density and structure, other site; M85.852 Other specified disorders of bone density and structure, left thigh; M85.851 Other specified disorders of bone density and structure, right thigh
CPT/HCPCS: 77080

== ENCOUNTER 2023-01-05 10:23 | Outpatient (CLI) | payer MEDICARE, SELFPAY ==
[2023-01-05 10:38] LABS: Basophils Percent Auto 0.5 % (0.2-1.2); Eosinophils Absolute Auto 0.1 K/mm3 (0-0.3); Eosinophils Percent Auto 1.2 % (0-4.4); Hematocrit 40.6 % (37.0-47.0); Hemoglobin 13.6 g/dL (12.0-15.0); Immature Granulocyte Absolute 0.01 K/mm3 (0.00-0.031); Immature Granulocyte Percent A 0.2 % (0-0.5); Lymphocytes Absolute Auto 0.84 K/mm3 (0.9-3.2); Lymphocytes Percent Auto 19.5 % (18.3-44.2); Mean Corpuscular HGB Conc 33.5 g/dl (32-36); Mean Corpuscular Hemoglobin 29.8 pg (26-34); Mean Corpuscular Volume 88.8 fl (80-100); Mean Platelet Volume 8.6 fl (7.4-10.4); Monocytes Absolute Auto 0.4 K/mm3 (0.1-0.6); Monocytes Percent Auto 9.3 % (2.6-8.5); Neutrophils Percent Auto 69.3 % (45.5-73.1); Platelet Count Result 231 k/mm3 (150-375); Red Blood Count 4.57 M/mm3 (4.2-5.4); Red Cell Distribution Width 13.6 % (11.5-14.5); White Blood Count 4.3 K/mm3 (4.5-10.0)
[2023-01-05 11:57] LABS: Alanine Aminotransferase 30 U/L (6-35); Albumin Level 4.1 g/dL (3.5-5.1); Alkaline Phosphatase 53 U/L (38-126); Anion Gap 3 mmol/L (8-16); Aspartate Amino Transferase 34 U/L (14-36); Bilirubin,Total 0.6 mg/dL (0.2-1.3); Blood Urea Nitrogen 16 mg/dL (7-17); Calcium 9.2 mg/dL (8.4-10.2); Carbon Dioxide 28 mmol/L (22-30); Chloride 95 mmol/L (98-107); Estimated Glomerular Filt Rate 60; Glucose 99 mg/dL (65-110); Potassium 4.6 mmol/L (3.4-5.0); Sodium 126 mmol/L (137-145)
[2023-01-05 12:04] LABS: Immunoglobulin A 700 mg/dL (70-400); Immunoglobulin G 1171 mg/dL (700-1600); Immunoglobulin M 75 mg/dL (40-230)
[2023-01-08 13:56] LABS: Albumin 3.6 g/dL (3.8-4.8); Alpha 1 Globulin 0.4 g/dL (0.2-0.3); Alpha 2 Globulin 0.8 g/dL (0.5-0.9); Beta 1 Globulin 0.5 g/dL (0.4-0.6); Gamma Globulin 1.2 g/dL (0.8-1.7); Protein, Total 7.2 g/dL (6.1-8.1)
[2023-01-09 00:08] LABS: Kappa\\Lambda Light Chains 1.52 (0.26-1.65); Lambda Light Chain 28.8 mg/L (5.7-26.3)
== END 2023-01-05 10:24 | disposition home or self-care (01) ==
LOC: ANHLAB 10:25
PROVIDERS: PCP Family Medicine; Visit Provider Internal Medicine Hematology & Oncology
DX: D47.2 Monoclonal gammopathy (principal)
CPT/HCPCS: 36415; 80053; 82784; 83883; 84155; 84165; 85025

== ENCOUNTER → 2023-06-21 08:36 | Outpatient (CLI) | payer MEDICARE, SELFPAY ==
--- NOTE | ~2023-06-21 | US_ITS ---
EXAMINATION: US abdomen limited DATE: 06/21/2023 08:54 INDICATION: K76.89 - Other specified diseases of liver TECHNIQUE: Multiple grayscale and Doppler ultrasound images of limited portions of the abdomen were o btained. COMPARISON: None available. FINDINGS: The visualized portions of the pancreas are normal. Obscuration of the pancreatic tail. The liver is normal with normal echogenicity and echotexture. No surface nodularity. Normal hepatopetal flow in the main portal vein. 2 mm echogenic focus adherent to the gallbladder wall, no vascular flow . Ill-defined intermediate echogenicity in the gallbladder fundus, may represent adherent sludge. The common bile duct measures 4 mm. There was no sonographic Clarke sign. IMPRESSION: Sonographically normal liver. Gallbladder sludge. 2 mm echogenic focus projecting off the gallbladder wall, may represent a small polyp, adherent stone , or adherent sludge ball. Reviewed, dictated and finalized at [facility]. 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 Gallbladder sludge. 2 mm echogenic focus projecting off the gallbladder wall, may represent a small polyp, adherent stone, or adherent sludge ball.
== END ==
PROVIDERS: PCP Family Medicine; Visit Provider Physician Assistant Medical
DX: K76.89 Other specified diseases of liver (principal)
CPT/HCPCS: 76705

== ENCOUNTER 2023-08-18 13:46 | Outpatient (CLI) | payer MEDICARE, SELFPAY ==
--- NOTE | ~2023-08-18 | MM_ITS ---
EXAMINATION: MM screening pacheco BI w dylon HISTORY: Screening TECHNIQUE: Craniocaudal and mediolateral oblique 3-D tomosynthesis images were obtained and synthetic 2-D images were generated. CAD analysis was submitted and interpreted. COMPARISON: Comparison to multiple prior studies sequentially, with oldest reviewed study dated 03/17. BREAST PARENCHYMAL COMPOSITION: Dense: The breasts are extremely dense, which lowers the sensitivity of mammography. FINDINGS: There is no evidence of suspicious mass, calcification, or architectural distortion to sugg est malignancy in either breast. There has been no suspicious interval change. IMPRESSION: 1. No mammographic evidence of malignancy. 2. Recommend routine screening mammography in one year. BI-RADS Category 1: Negative Reviewed, dictated and finalized at location A.
== END 2023-08-18 13:47 | disposition home or self-care (01) ==
LOC: ANHIMG 13:48
PROVIDERS: PCP Family Medicine; Visit Provider Family Medicine
DX: Z12.31 Encounter for screening mammogram for malignant neoplasm of breast (principal)
CPT/HCPCS: 77063; 77067

== ENCOUNTER 2023-11-08 15:21 | Outpatient (CLI) | payer MEDICARE, SELFPAY ==
[2023-11-08 16:52] LABS: Albumin Level 4.1 g/dL (3.5-5.1); Anion Gap 7 mmol/L (4-12); Blood Urea Nitrogen 26 mg/dL (7-17); Calcium 9.3 mg/dL (8.4-10.2); Carbon Dioxide 25 mmol/L (22-30); Chloride 97 mmol/L (98-107); Estimated Glomerular Filt Rate 53; Glucose 96 mg/dL (65-110); Phosphorus 4.3 mg/dL (2.5-4.5); Potassium 4.5 mmol/L (3.4-5.0); Sodium 129 mmol/L (137-145)
[2023-11-08 17:23] LABS: Thyroid Stimulating Hormone 0.722 uIU/mL (0.465-4.680)
[2023-11-08 17:30] LABS: Parathyroid Intact 44.4 pg/mL (7.5-53.5)
[2023-11-08 17:48] LABS: Free T4 Free Thyroxine 0.94 ng/mL (0.78-2.19)
== END 2023-11-08 15:22 | disposition home or self-care (01) ==
LOC: ANHLAB 15:23
PROVIDERS: PCP Family Medicine; Visit Provider Internal Medicine Endocrinology, Diabetes & Metabolism
DX: E04.1 Nontoxic single thyroid nodule (principal); M81.0 Age-related osteoporosis without current pathological fracture; R79.89 Other specified abnormal findings of blood chemistry; Z79.899 Other long term (current) drug therapy
CPT/HCPCS: 36415; 80069; 82306; 83970; 84439; 84443

== ENCOUNTER 2023-11-16 14:39 | Outpatient (CLI) | payer MEDICARE, SELFPAY ==
--- NOTE | ~2023-11-16 | US_ITS ---
EXAMINATION: US thyroid DATE: 11/16/2023 15:32 INDICATION: Nontoxic single thyroid nodule. TECHNIQUE: Multiple ultrasound images of the thyroid were obtained. COMPARISON: Ultrasound 10/09/2022, 11/24/21 FINDINGS: The right thyroid lobe measures 4.9 x 1.4 x 1.6 cm. The left thyroid lobe measures 4.2 x 1.1 x 1.1 c m. In the left thyroid lobe, there is an 8 mm predominantly solid, hypoechoic, wider than tall nodul e with smooth margin without echogenic foci (TI-RADS TR4). In the left thyroid lobe, there is a 7 mm solid, hypoechoic, wider than tall nodule with smooth margin without echogenic foci (TR4). In the rig ht thyroid lobe, there is a 13 mm mixed cystic and solid, hypoechoic, wider than tall nodule with ill -defined margin and punctate echogenic foci (TR4). IMPRESSION: 1. Multinodular goiter. Thyroid ultrasound is recommended in one year. Reviewed, dictated and finalized at location A.
== END 2023-11-16 14:40 | disposition home or self-care (01) ==
PROVIDERS: PCP Family Medicine; Visit Provider Internal Medicine Endocrinology, Diabetes & Metabolism
DX: E04.2 Nontoxic multinodular goiter (principal)
CPT/HCPCS: 76536

== ENCOUNTER 2023-11-20 07:55 | Outpatient (CLI) | payer MEDICARE, SELFPAY ==
[2023-11-20 08:29] LABS: Anion Gap 5 mmol/L (4-12); Blood Urea Nitrogen 18 mg/dL (7-17); Calcium 9.2 mg/dL (8.4-10.2); Carbon Dioxide 30 mmol/L (22-30); Chloride 97 mmol/L (98-107); Estimated Glomerular Filt Rate 53; Glucose 101 mg/dL (65-110); Potassium 4.6 mmol/L (3.4-5.0); Sodium 132 mmol/L (137-145)
[2023-11-22 15:44] LABS: Osmolality, Urine 346 mOsm/kg (50-1200)
[2023-11-24 14:19] LABS: Adrenocorticotropic Hormone 15 pg/mL (6-50)
== END 2023-11-20 07:56 | disposition home or self-care (01) ==
PROVIDERS: PCP Family Medicine; Visit Provider Internal Medicine Endocrinology, Diabetes & Metabolism
DX: E87.1 Hypo-osmolality and hyponatremia (principal)
CPT/HCPCS: 36415; 80048; 82024; 82533; 83930; 83935

== ENCOUNTER 2023-12-15 08:10 | Emergency (ER) | payer MEDICARE, SELFPAY ==
[2023-12-15] VITALS (9 sets, daily range): BP systolic 131–170; BP diastolic 58–76; PULSE 58–79; RESP 14–24; TEMP 36.4; O2SAT 98–100
--- NOTE | ~2023-12-15 | XR_ITS ---
EXAMINATION: XR shoulder LT min 2V DATE: 12/15/2023 08:47 INDICATION: Left shoulder pain. Fall. TECHNIQUE: 4 views of left shoulder were obtained. COMPARISON: None. FINDINGS: There is a fracture of distal left clavicle in near-anatomic alignment. There is a fracture left acromion with 2 mm inferior displacement of the distal fracture fragment. There are fractures o f left third-fifth ribs. There is mild osteoarthritis of glenohumeral joint and acromio clavicular phylicia int. IMPRESSION: 1. Fractures of left clavicle, left acromion, and left third-fifth ribs. 2. Mild polyarticular osteoarthritis. Reviewed, dictated and finalized at location A.
--- NOTE | ~2023-12-15 | CT_ITS ---
EXAMINATION: CT cervical spine wo con DATE: 12/15/2023 09:05 INDICATION: Head injury. Neck pain. TECHNIQUE: Computed tomography (CT) of the cervical spine was performed without intravenous contrast. Automated exposure control and iterative reconstruction technique were employed. The dose-length pro duct was 96.33 mGy-cm. COMPARISON: None FINDINGS: There is a left mastoid effusion. There is a longitudinal fracture of left temporal bone. T he ossicles demonstrate normal bone alignment. There is soft tissue gas in the left oil producer space and left parapharyngeal space. There is mild scarring at the lung apices. There is 8 degrees dextrocu rvature of cervical spine. There is kyphosis of cervical spine. There is 2 mm anterolisthesis of C3 o n C4 and C4 on C5 and 2 mm retrolisthesis of C5 on C6 and C6 on C7. Vertebral body heights are normal . There is severely decreased disc height at C3-C4, mildly decreased disc height at C4-C5, and severe ly decreased disc height at C5-C6 and C6-C7. The following disc levels are specifically discussed: C2-C3: There is mild bilateral uncovertebral joint osteoarthritis. There is mild right and severe lef t facet joint osteoarthritis. There is mild left neural foraminal stenosis. There is no central canal stenosis. C3-C4: There is mild right and severe left uncovertebral joint osteoarthritis. There is severe bilate ral facet joint osteoarthritis. There is mild bilateral neural foraminal stenosis. There is mild cent ral canal stenosis. C4-C5: There is mild bilateral uncovertebral joint osteoarthritis. There is severe bilateral facet phylicia int osteoarthritis. There is mild bilateral neural foraminal stenosis. There is mild central canal st enosis. C5-C6: There is severe bilateral uncovertebral joint osteoarthritis. There is mild right and moderate left facet joint osteoarthritis. There is mild bilateral neural foraminal stenosis. There is mild ce ntral canal stenosis. C6-C7: There is severe bilateral uncovertebral joint osteoarthritis. There is moderate right and calista re left facet joint osteoarthritis. There is mild bilateral neural foraminal stenosis. There is mild central canal stenosis. C7-T1: There is mild bilateral uncovertebral joint osteoarthritis. There is moderate bilateral facet joint osteoarthritis. There is no neural foraminal stenosis. There is mild central canal stenosis. IMPRESSION: 1. Longitudinal fracture of left temporal bone. 2. Severe cervical spondylosis. Reviewed, dictated and finalized at location A.
--- NOTE | ~2023-12-15 | CT_ITS ---
EXAMINATION: CT brain wo con DATE: 12/15/2023 09:05 INDICATION: Fall. TECHNIQUE: Computed tomography (CT) of the head was performed without intravenous contrast. The mA wa s adjusted according to patient size. Iterative reconstruction technique was employed. The dose-lengt h product was 605.33 mGy-cm. COMPARISON: None FINDINGS: There are scattered areas of low attenuation in the cerebral white matter, which is within normal limits for the patient's age. There is no intracranial hemorrhage, acute infarction, or abnorm al intracranial mass lesion. The ventricles are normal in size. There are likely changes of ocular le ns replacement surgeries. There is mild mucosal thickening in the paranasal sinuses. There is a left mastoid effusion. There is a longitudinal fracture of left temporal bone. The visualized portions of the ossicles demonstrate normal alignment. There is soft tissue gas inferior to the left temporal bon e. IMPRESSION: 1. Normal aging brain. 2. Longitudinal fracture of the left temporal bone. Reviewed, dictated and finalized at location A.
--- NOTE | ~2023-12-15 | XR_ITS ---
XR chest 1V portable Ordering provider: Celine Abernathy MD History: 82 years Female with . syncope . Comparison: November 16, 2022 FINDINGS: MEDIASTINUM: The cardiac silhouette is not enlarged. LUNGS: No infiltrates, effusions or pneumothorax. Bilateral bronchovascular markings prominence. Underlying emphysematous changes. OTHER: No free air under the diaphragm. Degenerative changes of the spine. IMPRESSION: No acute cardiopulmonary pathology. Reviewed, dictated and finalized at location A.
--- NOTE | 2023-12-15 08:15 | ECG_ITS ---
Test Date: 2023-12-15 08:17:12 Measurements Intervals [place] Rate: 65 P: 66 DC: 139 QRS: 81 QRSD: 82 T: 43 QT: 399 QTc: 415 Interpretive Statements SINUS RHYTHM WITH OCCASIONAL VENTRICULAR PREMATURE COMPLEXES LEFT ATRIAL ENLARGEMENT BORDERLINE ST ABNORMALITY- INF/LAT LEADS BASELINE ARTIFACT- I, II, III, AVR, AVL, AVF BORDERLINE ECG No previous ECG available for comparison Electronically Signed On 12-15-2023 08:40:55 CDT by Eliot Ramos D.O.
--- NOTE | 2023-12-15 08:58 | ED.FALL ---
HPI - Fall General Chief Complaint: Fall Stated Complaint: fall Time Seen by Provider: 12/15/23 08:23 Source: patient Limitations: no limitations History of Present Illness HPI Narrative: Patient presents after what is initially reported to be a fall. There is initially reported that patient had a near laceration due to blood seen around her ear it was reported that she had neck pain. C-collar applied and initial triage imaging ordered. However, upon further evaluation patient reports that she was sitting on her bar stool eating breakfast when she lost muscle tone and consciousness. She believes she was unresponsive only briefly but did land the ground for approximately 20 minutes given she was weak. She states she has been weak over the last few days and has been taking Tylenol and Mucinex for which she presumed were cold symptoms. She is not on anticoagulation. She was fatigued yesterday states that she was running a low-grade temperature for which she slept. She is complaining left shoulder pain. She states she had a syncopal event 20 years ago of unclear etiology. She initially denies any head pain at triage but then states that she is starting to have a generalized headache but does not describe it as throbbing. Her left eye does deviate temporally but she states this is chronic since . No loose or broken dentition. No vision changes. Had not yet taken anything for pain prior to arrival. Related Data Home Medications Medication Instructions Recorded Confirmed calcium carbonate 600 mg-vitamin 1 tablet PO .QD 07/25/21 11/17/23 D3 10 mcg (400 unit) chewable tablet (Calcium 600 with Vitamin D3) cholecalciferol (vitamin D3) 25 25 mcg PO DAILY 07/25/21 11/17/23 mcg (1,000 unit) capsule upadacitinib 15 mg tablet,extended 15 mg PO DAILY 07/26/23 11/17/23 release 24 hr (Rinvoq) Allergies Allergy/AdvReac Type Severity Reaction Status Date / Time leflunomide [From Arava] Allergy Unknown Verified 11/17/23 09:33 benzonatate AdvReac Intermediate n/a Verified 11/17/23 09:33 [facility] Past Medical History Medical History (Updated 12/16/23 @ 08:25 by Celine Abernathy MD) Bilateral hand pain End of life care Essential hypertension Exotropia of left eye 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) Leukopenia Osteoporosis 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 Surgical History Surgical History History of cataract surgery Family History Family History Father Heart disease Grandparent Cancer Grandparent Cancer Mother Social History Social History Smoking status: Never smoker Second hand tobacco smoke exposure: Yes Alcohol intake: current Alcohol use details: occasionally Substance use: never Substance use type: does not use Do You Feel Safe in your Home?: Yes Lack of Transportation: No Lack of Food: Never True Current Housing: I Have Housing Concerned About Future Housing: No Difficulty Paying Gas/Electric Bills: No Difficulty Paying for Meds: No Currently Unemployed: Decline to Answer Education: Master's Degree or Higher Living arrangements: alone Additional living arrangements comments: Independent living [place] 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 HEAD: Normocephalic, atraumatic. No raccoon eyes or Reyna signs. Patient has dried blood in hair but without appreciable abrasion or laceration of the scalp. EYES: Non injected,
[2023-12-15 09:39] LABS: Basophils Percent Auto 0.2 % (0.2-1.2); Hematocrit 39.6 % (37.0-47.0); Hemoglobin 13.4 g/dL (12.0-15.0); Immature Granulocyte Absolute 0.02 K/mm3 (0.00-0.031); Immature Granulocyte Percent A 0.4 % (0-0.5); Lymphocytes Absolute Auto 0.34 K/mm3 (0.9-3.2); Lymphocytes Percent Auto 7.1 % (18.3-44.2); Mean Corpuscular HGB Conc 33.8 g/dl (32-36); Mean Corpuscular Hemoglobin 32.4 pg (26-34); Mean Corpuscular Volume 95.7 fl (80-100); Mean Platelet Volume 8.8 fl (7.4-10.4); Monocytes Absolute Auto 0.6 K/mm3 (0.1-0.6); Monocytes Percent Auto 11.8 % (2.6-8.5); Neutrophils Absolute Auto 3.9 K/mm3 (1.3-6.7); Neutrophils Percent Auto 80.5 % (45.5-73.1); Platelet Count Result 179 k/mm3 (150-375); Red Blood Count 4.14 M/mm3 (4.2-5.4); Red Cell Distribution Width 13.3 % (11.5-14.5); White Blood Count 4.8 K/mm3 (4.5-10.0)
[2023-12-15] MEDS: ACETAMINOPHEN 500 MG TABLET 1000 MG PO (09:46)
[2023-12-15 09:49] LABS: Creatine Kinase 162 U/L (30-135)
[2023-12-15 09:50] LABS: Alanine Aminotransferase 21 U/L (6-35); Albumin Level 4.1 g/dL (3.5-5.1); Alkaline Phosphatase 40 U/L (38-126); Anion Gap 7 mmol/L (4-12); Aspartate Amino Transferase 36 U/L (14-36); Bilirubin,Total 0.3 mg/dL (0.2-1.3); Blood Urea Nitrogen 21 mg/dL (7-17); Calcium 8.7 mg/dL (8.4-10.2); Carbon Dioxide 29 mmol/L (22-30); Chloride 96 mmol/L (98-107); Estimated CRCL calculation 30 ml/min; Estimated Glomerular Filt Rate 48; Glucose 121 mg/dL (65-110); Potassium 4.3 mmol/L (3.4-5.0); Sodium 132 mmol/L (137-145)
[2023-12-15 09:51] LABS: Partial Thromboplastin Time 25.7 Seconds (22.3-36.8); Prothrombin Time 13.6 Seconds (11.1-14.7)
[2023-12-15 10:02] LABS: Troponin I < 0.012 ng/mL (0.000-0.034)
[2023-12-15 10:15] LABS: Influenza A QL RT-PCR Negative (Negative); Influenza B QL RT-PCR Negative (Negative); RSV RNA, RT-PCR Negative (Negative); SARS-CoV-2 RNA PCR Positive (Negative)
[2023-12-15 10:53] LABS: Appearance Urine Clear (Clear); Bilirubin Urine Negative (Negative); Blood Urine Negative (Negative); Color Urine Yellow (Yellow); Glucose Urine UA Negative (Negative); Ketones Urine Negative (Negative); Leukocyte Esterase Ur Negative LEU/UL (Negative); Nitrate Urine Negative (Negative); Protein Urine Negative (Negative); Specific Grav Ur 1.017 (1.001-1.035); Urobilinogen Urine 0.2 mg/dL (<2.0)
[2023-12-15 11:19] LABS: Add Urine Microscopic? NO
== END 2023-12-15 11:37 | disposition short-term general hospital (02) ==
PROVIDERS: Emergency Provider Student in an Organized Health Care Education/Training Program; PCP Family Medicine
DX: U07.1 COVID-19 (principal); R55 Syncope and collapse; S02.19XA Other fracture of base of skull, initial encounter for closed fracture; S42.032A Displaced fracture of lateral end of left clavicle, initial encounter for closed fracture; S42.122A Displaced fracture of acromial process, left shoulder, initial encounter for closed fracture; S22.42XA Multiple fractures of ribs, left side, initial encounter for closed fracture; H74.8X2 Other specified disorders of left middle ear and mastoid; M47.812 Spondylosis without myelopathy or radiculopathy, cervical region; I10 Essential (primary) hypertension; D47.2 Monoclonal gammopathy; M81.0 Age-related osteoporosis without current pathological fracture; M05.79 Rheumatoid arthritis with rheumatoid factor of multiple sites without organ or systems involvement; H50.10 Unspecified exotropia; Z98.49 Cataract extraction status, unspecified eye; Z79.622 Long term (current) use of Janus kinase inhibitor; W08.XXXA Fall from other furniture, initial encounter; R94.31 Abnormal electrocardiogram [ECG] [EKG]; I49.3 Ventricular premature depolarization; M19.012 Primary osteoarthritis, left shoulder
CPT/HCPCS: 36415; 70450; 71045; 72125; 73030; 80053; 81003; 82550; 84484; 85025; 85610; 85730; 87637; 93005; 99285; A4565; A9270

== ENCOUNTER 2024-01-27 09:25 | Outpatient (CLI) | payer MEDICARE, SELFPAY ==
[2024-01-27 11:06] LABS: Basophils Percent Auto 0.8 % (0.2-1.2); Eosinophils Percent Auto 0.5 % (0-4.4); Hematocrit 38.6 % (37.0-47.0); Immature Granulocyte Absolute 0.01 K/mm3 (0.00-0.031); Immature Granulocyte Percent A 0.3 % (0-0.5); Lymphocytes Absolute Auto 1.08 K/mm3 (0.9-3.2); Lymphocytes Percent Auto 28.6 % (18.3-44.2); Mean Corpuscular HGB Conc 33.7 g/dl (32-36); Mean Corpuscular Hemoglobin 31.6 pg (26-34); Mean Corpuscular Volume 93.9 fl (80-100); Monocytes Absolute Auto 0.4 K/mm3 (0.1-0.6); Monocytes Percent Auto 11.1 % (2.6-8.5); Neutrophils Absolute Auto 2.2 K/mm3 (1.3-6.7); Neutrophils Percent Auto 58.7 % (45.5-73.1); Platelet Count Result 229 k/mm3 (150-375); Red Blood Count 4.11 M/mm3 (4.2-5.4); Red Cell Distribution Width 13.1 % (11.5-14.5); White Blood Count 3.8 K/mm3 (4.5-10.0)
[2024-01-27 11:28] LABS: Alanine Aminotransferase 23 U/L (6-35); Albumin Level 4.2 g/dL (3.5-5.1); Alkaline Phosphatase 47 U/L (38-126); Anion Gap 8 mmol/L (4-12); Aspartate Amino Transferase 42 U/L (14-36); Bilirubin,Total 0.5 mg/dL (0.2-1.3); Blood Urea Nitrogen 20 mg/dL (7-17); Calcium 9.1 mg/dL (8.4-10.2); Carbon Dioxide 26 mmol/L (22-30); Chloride 94 mmol/L (98-107); Estimated Glomerular Filt Rate 60; Glucose 90 mg/dL (65-110); Potassium 4.8 mmol/L (3.4-5.0); Sodium 128 mmol/L (137-145)
== END 2024-01-27 09:26 | disposition home or self-care (01) ==
LOC: ANHLAB 09:28
PROVIDERS: PCP Family Medicine; Visit Provider Nurse Practitioner Adult Health
DX: E87.1 Hypo-osmolality and hyponatremia (principal); I10 Essential (primary) hypertension; R79.89 Other specified abnormal findings of blood chemistry
CPT/HCPCS: 36415; 80053; 85025

== ENCOUNTER 2024-02-21 08:47 | Outpatient (CLI) | payer MEDICARE, SELFPAY ==
[2024-02-21 09:38] LABS: Alanine Aminotransferase 23 U/L (6-35); Albumin Level 4.1 g/dL (3.5-5.1); Alkaline Phosphatase 40 U/L (38-126); Anion Gap 6 mmol/L (4-12); Aspartate Amino Transferase 41 U/L (14-36); Bilirubin,Total 0.5 mg/dL (0.2-1.3); Blood Urea Nitrogen 22 mg/dL (7-17); Calcium 9.4 mg/dL (8.4-10.2); Carbon Dioxide 29 mmol/L (22-30); Chloride 99 mmol/L (98-107); Estimated Glomerular Filt Rate 48; Glucose 93 mg/dL (65-110); Potassium 4.6 mmol/L (3.4-5.0); Sodium 134 mmol/L (137-145)
== END 2024-02-21 08:48 | disposition home or self-care (01) ==
LOC: ANHLAB 08:49
PROVIDERS: PCP Family Medicine; Visit Provider Nurse Practitioner Adult Health
DX: E87.1 Hypo-osmolality and hyponatremia (principal)
CPT/HCPCS: 36415; 80053

== ENCOUNTER 2024-03-31 09:29 | Outpatient (CLI) | payer MEDICARE, SELFPAY ==
[2024-03-31 10:20] LABS: Basophils Percent Auto 0.2 % (0.2-1.2); Eosinophils Percent Auto 0.7 % (0-4.4); Hematocrit 38.5 % (37.0-47.0); Hemoglobin 12.8 g/dL (12.0-15.0); Immature Granulocyte Absolute 0.02 K/mm3 (0.00-0.031); Immature Granulocyte Percent A 0.5 % (0-0.5); Lymphocytes Absolute Auto 1.04 K/mm3 (0.9-3.2); Lymphocytes Percent Auto 24.3 % (18.3-44.2); Mean Corpuscular HGB Conc 33.2 g/dl (32-36); Mean Corpuscular Hemoglobin 31.3 pg (26-34); Mean Corpuscular Volume 94.1 fl (80-100); Mean Platelet Volume 9.2 fl (7.4-10.4); Monocytes Absolute Auto 0.5 K/mm3 (0.1-0.6); Monocytes Percent Auto 11.7 % (2.6-8.5); Neutrophils Absolute Auto 2.7 K/mm3 (1.3-6.7); Neutrophils Percent Auto 62.6 % (45.5-73.1); Platelet Count Result 217 k/mm3 (150-375); Red Blood Count 4.09 M/mm3 (4.2-5.4); Red Cell Distribution Width 13.1 % (11.5-14.5); White Blood Count 4.3 K/mm3 (4.5-10.0)
[2024-03-31 10:30] LABS: Add Urine Microscopic? YES; Appearance Urine Clear (Clear); Bacteria Urine None Seen /hpf; Bilirubin Urine Negative (Negative); Blood Urine Negative (Negative); Color Urine Yellow (Yellow); Glucose Urine UA Negative (Negative); Ketones Urine Negative (Negative); Leukocyte Esterase Ur Trace LEU/UL (Negative); Nitrate Urine Negative (Negative); Non Pathogenic Casts 0-2; Protein Urine Negative (Negative); RBC Urine 0-2 /hpf (0-2); Specific Grav Ur 1.012 (1.001-1.035); Squamous Epithelial Cell Urine None Seen /hpf (Few); Urobilinogen Urine 0.2 mg/dL (<2.0); WBC Urine 0-5 /hpf (0-3)
[2024-03-31 10:42] LABS: Albumin Level 4.4 g/dL (3.5-5.1); Anion Gap 8 mmol/L (4-12); Blood Urea Nitrogen 25 mg/dL (7-17); CRP < 0.5 mg/dL (<1.0); Calcium 9.4 mg/dL (8.4-10.2); Carbon Dioxide 27 mmol/L (22-30); Chloride 98 mmol/L (98-107); Estimated Glomerular Filt Rate 48; Glucose 99 mg/dL (65-110); Phosphorus 3.7 mg/dL (2.5-4.5); Potassium 4.7 mmol/L (3.4-5.0); Sodium 133 mmol/L (137-145)
[2024-03-31 11:03] LABS: Erythrocyte Sedimentation Rate 22 mm/hr (0-20)
== END 2024-03-31 09:30 | disposition home or self-care (01) ==
LOC: ANHLAB 09:31
PROVIDERS: PCP Family Medicine; Visit Provider Internal Medicine
DX: M06.89 Other specified rheumatoid arthritis, multiple sites (principal)
CPT/HCPCS: 36415; 80069; 81001; 85025; 85652; 86140

== ENCOUNTER 2024-04-25 08:45 | Outpatient (CLI) | payer MEDICARE, SELFPAY ==
--- NOTE | ~2024-04-25 | DEXA_ITS ---
Bone Density Report Name: EUGENIA OH Age: 83 Sex: Female Ethnicity: White Date of : 1940 Indication: osteopenia; height loss; prior fracture; rheumatoid arthritis; Referring Provider: INNA PAN Study: Bone densitometry was performed. Exam Date: April 25, 2024 Accession number: [id number] Bone Density: Region BMD T-score Z-score Classification AP Spine(L1-L4) 0.892 -1.4 1.3 Osteopenia Femoral Neck (Left) 0.556 -2.6 -0.3 Osteoporosis Total Hip (Left) 0.713 -1.9 0.3 Osteopenia Femoral Neck (Right) 0.599 -2.3 0.1 Osteopenia Total Hip (Right) 0.745 -1.6 0.5 Osteopenia Total Hip Mean 0.729 -1.8 0.4 Osteopenia World Health Organization criteria for BMD impression classify patients as: Normal (T-score at or above -1.0), Osteopenia (T-score between -1.0 and -2.5), or Osteoporosis (T-score at or below -2.5). 10-year Fracture Risk: FRAX not reported because: Some T-score for Spine Total or Hip Total or Femoral Neck at or below -2.5 Previous Exams: Region Exam Age BMD T-score BMD Change BMD Change Date g/cm2 vs Baseline vs Previous AP Spine (L1-L4) 04/25/2024 83 0.892 -1.4 -0.009 (-1.0%) -0.009 (-1.0%) 11/24/2022 81 0.901 -1.3 Total Hip(Left) 04/25/2024 83 0.713 -1.9 0.045 (6.8%)* 0.045 (6.8%)* 11/24/2022 81 0.667 -2.3 Total Hip(Right) 04/25/2024 83 0.745 -1.6 0.050 (7.2%)* 0.050 (7.2%)* 11/24/2022 81 0.695 -2.0 *Denotes significance at 95% confidence level, LSC for AP Spine = 0.022 g/cm2, LSC for Total Hip = 0.027 g/cm2 Clinical Information Provided by Patient: Has had a low trauma fracture Has rheumatoid arthritis Has used the following medications: Vitamin D, Calcium Patient maximum height was 66 Menopause Age: 52 Drinks caffeinated beverages Onset of menses at age 15 Number of children 0 Impression: The patient has established osteoporosis, based on the Left Femoral Neck T-score and the existence of a prior fracture. The patient has risk factors, including: previous fracture. No significant bone loss was observed. Discussion: HIGH RISK OF FRACTURE. BONE DENSITY IS UNDESIRABLY LOW AT ONE OR MORE SKELETAL SITES, CONSISTENT WITH POSTMENOPAUSAL OSTEOPOROSIS. This patient's lowest T-score, in a patient who has previously fractured, meets the World Health Organization's (WHO) criteria for severe osteoporosis. In untreated patients, the risk of osteoporotic fracture increases approximately two-fold for each 1.0 SD decrease in T-score. Low bone density is not the only risk factor for fracture; also consider factors such as patient's age, frailty or poor health, risk of falling, risk of injury, previous osteoporotic fracture, family history of osteoporosis, cigarette smoking, low body weight, etc. Not everyone with low bone mineral density has osteoporosis; osteomalacia and other metabolic bone disorders should also be considered. Patients who have osteoporosis should be evaluated for specific diseases and conditions (secondary causes) that may cause or contribute to bone loss. The [place] Association of Clinical Endocrinologists (AACE) and National Osteoporosis Foundation (NOF) recommend pharmacologic intervention for all postmenopausal women whose T-score is in this range. The patient should follow a healthful lifestyle (good nutrition with adequate calcium and vitamin D, and appropriate weight-bearing exercise). Follow-Up: Consider a repeat BMD and Vertebral Fracture Assessment (VFA) exam in 2 years or sooner if medically necessary, to reassess this patient's status. Reported by: BORIS on 04/25/2024 9:16:00 AM. Reviewed, dictated and finalized at [facility]
== END 2024-04-25 08:46 | disposition home or self-care (01) ==
PROVIDERS: PCP Family Medicine; Visit Provider Internal Medicine Endocrinology, Diabetes & Metabolism
DX: M85.89 Other specified disorders of bone density and structure, multiple sites (principal); M81.0 Age-related osteoporosis without current pathological fracture
CPT/HCPCS: 77080

== ENCOUNTER 2024-06-17 07:38 | Outpatient (CLI) | payer MEDICARE, SELFPAY ==
--- NOTE | ~2024-06-17 | US_ITS ---
EXAMINATION: US abdomen complete DATE: 06/17/2024 08:37 INDICATION: R74.8 - Abnormal levels of other serum enzymes TECHNIQUE: Multiple grayscale and Doppler ultrasound images of the abdomen were obtained. COMPARISON: 06/21/2023. FINDINGS: The visualized portions of the pancreas are normal. The liver is normal with normal echogen icity and echotexture. No surface nodularity. Normal hepatopetal flow in the main portal vein. The ga llbladder is normal with no abnormal wall thickening, pericholecystic fluid or stones. The common denny e duct measures 2 mm. There was no sonographic Clarke sign. The visualized portions of the aorta and inferior vena cava are normal. The right kidney measures 9.3 x 3.8 x 4.6 cm. The left kidney measures 8.5 x 4.1 x 5.0 cm. The kidney s demonstrate normal parenchymal echogenicity. There is no hydronephrosis. The spleen is normal in ap pearance and measures 8.2 cm. IMPRESSION: Normal abdominal ultrasound findings. Reviewed, dictated and finalized at location [facility] [employer]
== END 2024-06-17 07:39 | disposition home or self-care (01) ==
PROVIDERS: PCP Family Medicine; Visit Provider Nurse Practitioner Adult Health
DX: R74.8 Abnormal levels of other serum enzymes (principal)
CPT/HCPCS: 76700

== ENCOUNTER 2024-06-23 09:41 | Outpatient (CLI) | payer MEDICARE, SELFPAY ==
[2024-06-23 10:20] LABS: Alanine Aminotransferase 28 U/L (6-35); Albumin Level 4.4 g/dL (3.5-5.1); Alkaline Phosphatase 41 U/L (38-126); Amylase 85 U/L (30-110); Anion Gap 6 mmol/L (4-12); Aspartate Amino Transferase 41 U/L (14-36); Bilirubin,Total 0.6 mg/dL (0.2-1.3); Blood Urea Nitrogen 22 mg/dL (7-17); Carbon Dioxide 31 mmol/L (22-30); Chloride 99 mmol/L (98-107); Estimated Glomerular Filt Rate 54; Glucose 89 mg/dL (65-110); Lipase 124 U/L (23-300); Potassium 4.5 mmol/L (3.4-5.0); Sodium 136 mmol/L (137-145)
--- OUTSIDE RECORDS SUMMARY | 2024-06-23 10:24 | XMS_ITS | Encounter Summary ---
Author Organization [facility] Address [address] [place] [address] Phone Care Team Providers Care [employer] Gran[employer]isher Name Role Phone Romeo Lemus MD Primary Care Provider + Theresa Brandon MD Unavailable [phone] Harish Edwards MD Primary Care Provider + [phone] Encounter Details Date Type Department Care Team (Latest Contact Info) Description 05/03/2020 Orders Only [facility] Scanning, Provider Social History Tobacco Use Types Packs/Day Years Used Date Smoking Tobacco: Never Smokeless Tobacco: Never Comments Unknown Sex and Gender Information Value Date Recorded Sex Assigned at Not on file Legal Sex Female 8:22 PM [employer] Gender Identity Female 02/07/2019 1:03 PM CDT Sexual Orientation Not on file documented as of this encounter Plan of Treatment Not on file documented as of this encounter Procedures Procedure Name Priority Date/Time Associated Diagnosis Comments SCAN - LABS 05/03/2020 documented in this encounter Results * SCAN - LABS (05/03/2020) us Provider Scanning Final Result documented in this encounter Visit Diagnoses Not on filedocumented in this encounter Additional Health Concerns Infection Onset Date Last Indicated Resolved Time COVID19 2023 2023 12/31/2023 3:05 AM CDT COVID: Recovered Comment:Added based on recent COVID infection. 12/31/2023 12/31/2023 03/30/2024 3:[address] documented as of this encounter Care Teams [employer] Relationship Specialty Start Date End Date Romeo Lemus MD PCP - General Internal Medicine 06/23/19 12/15/23 Harish Edwards MD [address] [place] [address] [place] [address] PCP - General Family Medicine 12/16/23 Theresa Brandon MD [address] [place] [address] Medical Oncologist/Ware Cleaner Hematology 06/21/20 documented as of this encounter
--- OUTSIDE RECORDS SUMMARY | 2024-06-23 10:24 | XMS_ITS | Patient Health Summary ---
Author Organization [facility] Address [address] [place] [address] Care Team Providers Care Technology Education Teacher Name Role Phone Romeo Lemus MD Primary Care Provider [phone] [facility],non-owned Affiliates and Associated Physician Practices is amultiple site organization consisting of ambulatory clinics and hospital sitesin [place], [place], [place] and [place]. This disclosure is being madepursuant to the Care Everywhere program and may not contain all information available regarding this patient. Last updated 18.[facility] Allergies * Leflunomide(Skin Reactions) -High Criticality Medications * Be aware that medications may not be up to date on this document. Alwaysverify current medications with the patient. * etanercept (ENBREL) 25 MG/0.5ML prefilled syringe(Started 02/20/2019) INJECT ONE SYRINGE SUBCUTANEOUSLY TWICE A WEEK. 2 refills remaining * calcium 600 MG tablet(Started 02/26/2014) Take 1 tablet by mouth once daily * meloxicam (MOBIC) 15 MG tablet(Started 07/04/2019) Take 1 tablet by mouth once daily 3 refills by 07/03/2020 Active Problems Problem Noted Date Diagnosed Date Other correction (current) drug therapy 7 Rheumatoid arthritis of [facility] sites without organ or system involvement with positive rheumatoid factor 05/25/2016 Encounter for therapeutic drug level monitoring 05/25/2016 Adverse effect of drug or medicament 02/28/2015 Resolved Problems Problem Noted Date Diagnosed Date Resolved Date Other injury of unspecified body region, initial encounter 04/29/2015 02/13/2018 Immunizations * Covid Pfizer primary monovalent 12+ yr 0.3mL Purple cap(Given 07/04/2020, 06/13/2020) * INFLUENZA VACCINE(Given 02/22/2018, 02/16/2017, 03/04/2016, 03/06/2015, 02/14/2014, 03/03/2013, 03/21/2012) * INFLUENZA VACCINE, ADJUVANTED, QUADR. (FLUAD QUADRIVALENT; 65Y+) (AIIV4)(Given 02/19/2020) * INFLUENZA VACCINE, HIGH-DOSE, QUADR. (FLUZONE HIGH-DOSE QUADRIVALENT; 65Y+), 0.7 ML (HD-IIV4)(Given 03/08/2019) * Pneumococcal Pcv13 Conj(Given 05/29/2015) * TDAP (7yrs+)(Given 10/28/2017, 12/24/2012) * Zoster Hzv Vacc Recombinant Inj Im(Given 08/25/2018, 04/29/2018) Social History Tobacco Use Types Packs/Day Years Used Date Smoking Tobacco: Never Smokeless Tobacco: Never Alcohol Use Standard Drinks/Week Comments Yes 1.7 (1 standard drink = 0.6 oz p ure alcohol) once a week PHQ-2 Answer Date Recorded PHQ2 TOTAL SCORE 0 10/29/2020 Sex and Gender Information Value Date Recorded Sex Assigned at Not on file Gender Identity Not on file Sexual Orientation Not on file Last Filed Vital Signs Vital Sign Reading Time Taken Comments Blood Pressure 142/88 07/01/2021 12:14 PM SCHOOL COUNSELLOR Pulse 78 10/29/2020 1:00 PM CDT Temperature 36.8 C (98.2 F) 07/01/2021 12:14 PM SCHOOL COUNSELLOR Respiratory Rate 16 10/29/2020 1:00 PM CDT Oxygen Saturation 98% 10/29/2020 1:00 PM CDT Inhaled Oxygen Concentration - - Weight 53.5 kg (118 lb) 07/01/2021 12:14 PM SCHOOL COUNSELLOR Height 165.1 cm (5' 5 ) 07/01/2021 12:14 PM SCHOOL COUNSELLOR Body Mass Index 19.64 07/01/2021 12:14 PM SCHOOL COUNSELLOR Procedures * CBC W AUTO DIFFERENTIAL(Performed 07/01/2021) Performed for 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) * SS-A (SJOGREN'S) 52+60 ANTIBODIES(Performed 07/01/2021) Performed for 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) * SS-B (SJOGREN'S) ANTIBODY(Performed 07/01/2021) Performed for Seropositive rheumatoid arthritis of multiple sites ([facility]) * QUANTIFERON-TB GOLD PLUS 4-TUBE(Performed 07/01/2021) Performed for Seropositive rheumatoid arthritis of multiple sites ([facility]) * ERYTHROCYTE SEDIMENTATION RATE(Performed 07/01/2021) Performed for Seropositive rheumatoid arthritis of multiple sites ([facility]) * COMPREHENSIVE METABOLIC PANEL(Performed 07/01/2021) Performed for Seropositive rheumatoid arthritis of multiple sites ([facility]) * XR CHEST 2VW(Performed 07/01/2021) Performed for Encounter for therapeutic drug monitoring * QUANTIFERON-TB GOLD PLUS 1-TUBE(Performed 06/04/2021) * URINALYSIS W/MICROSCOPIC NO CULTURE(Performed 06/04/2021) Performed for Encounter for therapeutic drug monitoring, Seropositive rheumatoid arthritis of multiple sites ([facility]) * ERYTHROCYTE SEDIMENTATION RATE(Performed 06/04/2021) Performed for Encounter for therapeutic drug monitoring, Seropositive rheumatoid arthritis of multiple sites ([facility]) * C-REACTIVE PROTEIN(Performed 06/04/2021) Performed for Encounter for therapeutic drug monitoring, Seropositive rheumatoid arthritis of multiple sites ([facility]) * COMPREHENSIVE METABOLIC PANEL(Performed 06/04/2021) Performed for Encounter for therapeutic drug monitoring, Seropositive rheumatoid arthritis of multiple sites ([facility]) * CBC W/O DIFFERENTIAL(Performed 06/04/2021) Performed for Encounter for therapeutic drug monitoring, Seropositive rheumatoid arthritis of multiple sites ([facility]) * C-REACTIVE PROTEIN(Performed 10/17/2020) * URINALYSIS W/MICROSCOPIC NO CULTURE(Performed 10/17/2020) * CBC W/O DIFFERENTIAL(Performed 10/17/2020) * ERYTHROCYTE SEDIMENTATION RATE(Performed 10/17/2020) * COMPREHENSIVE METABOLIC PANEL(Performed 10/17/2020) * QUANTIFERON-TB GOLD PLUS 1-TUBE(Performed 08/13/2020) * C-REACTIVE PROTEIN(Performed 08/13/2020) * CBC W/O DIFFERENTIAL(Performed 08/13/2020) * ERYTHROCYTE SEDIMENTATION RATE(Performed 08/13/2020) * URINALYSIS W/MICROSCOPIC NO CULTURE(Performed 08/13/2020) * COMPREHENSIVE METABOLIC PANEL(Performed 08/13/2020) * RHEUMATOID ARTHRITIS PANEL(Performed 08/13/2020) * URINALYSIS W/MICROSCOPIC NO CULTURE(Performed 05/03/2020) Performed for Seropositive rheumatoid arthritis of multiple sites ([facility]), Encounter for therapeutic drug monitoring * ERYTHROCYTE SEDIMENTATION RATE(Performed 05/03/2020) Performed for Seropositive rheumatoid arthritis of multiple sites ([facility]), Encounter for therapeutic drug monitoring * C-REACTIVE PROTEIN(Performed 05/03/2020) Performed for Seropositive rheumatoid arthritis of multiple sites ([facility]), Encounter for therapeutic drug monitoring * COMPREHENSIVE METABOLIC PANEL(Performed 05/03/2020) Performed for Seropositive rheumatoid arthritis of multiple sites ([facility]), Encounter for therapeutic drug monitoring * CBC W/O DIFFERENTIAL(Performed 05/03/2020) Performed for Seropositive rheumatoid arthritis of multiple sites ([facility]), Encounter for therapeutic drug monitoring * CBC W AUTO DIFFERENTIAL(Performed 02/15/2020) Performed for Encounter for therapeutic drug monitoring * URINALYSIS W/MICROSCOPIC NO CULTURE(Performed 02/05/2020) Performed for Seropositive rheumatoid arthritis of multiple sites ([facility]), Encounter for therapeutic drug monitoring * ERYTHROCYTE SEDIMENTATION RATE(Performed 02/05/2020) Performed for Seropositive rheumatoid arthritis of multiple sites ([facility]), Encounter for therapeutic drug monitoring * C-REACTIVE PROTEIN(Performed 02/05/2020) Performed for Seropositive rheumatoid arthritis of multiple sites ([facility]), Encounter for therapeutic drug monitoring * COMPREHENSIVE METABOLIC PANEL(Performed 02/05/2020) Performed for Seropositive rheumatoid arthritis of multiple sites ([facility]), Encounter for therapeutic drug monitoring * CBC W/O DIFFERENTIAL(Performed 02/05/2020) Performed for Seropositive rheumatoid arthritis of multiple sites ([facility]), Encounter for therapeutic drug monitoring * URINALYSIS W/MICROSCOPIC NO CULTURE(Performed 11/24/2019) Performed for Seropositive rheumatoid arthritis of multiple sites ([facility]), Encounter for therapeutic drug monitoring * ERYTHROCYTE SEDIMENTATION RATE(Performed 11/24/2019) Performed for Seropositive rheumatoid arthritis of multiple sites ([facility]), Encounter for therapeutic drug monitoring * C-REACTIVE PROTEIN(Performed 11/24/2019) Performed for Seropositive rheumatoid arthritis of multiple sites ([facility]), Encounter for therapeutic drug monitoring * COMPREHENSIVE METABOLIC PANEL(Performed 11/24/2019) Performed for Seropositive rheumatoid arthritis of multiple sites ([facility]), Encounter for therapeutic drug monitoring * CBC W/O DIFFERENTIAL(Performed 11/24/2019) Performed for Seropositive rheumatoid arthritis of multiple sites ([facility]), Encounter for therapeutic drug monitoring * URINALYSIS W/MICROSCOPIC NO CULTURE(Performed 10/11/2019) Performed for Seropositive rheumatoid arthritis of multiple sites ([facility]), Encounter for therapeutic drug monitoring * ERYTHROCYTE SEDIMENTATION RATE(Performed 10/11/2019) Performed for Seropositive rheumatoid arthritis of multiple sites ([facility]), Encounter for therapeutic drug monitoring * C-REACTIVE PROTEIN(Performed 10/11/2019) Performed for Seropositive rheumatoid arthritis of multiple sites ([facility]), Encounter for therapeutic drug monitoring * COMPREHENSIVE METABOLIC PANEL(Performed 10/11/2019) Performed for Seropositive rheumatoid arthritis of multiple sites ([facility]), Encounter for therapeutic drug monitoring * CBC W/O DIFFERENTIAL(Performed 10/11/2019) Performed for Seropositive rheumatoid arthritis of multiple sites ([facility]), Encounter for therapeutic drug monitoring * LAB RESULTS ORDER(Performed 07/06/2019) * URINALYSIS W/MICROSCOPIC NO CULTURE(Performed 07/04/2019) Performed for Seropositive rheumatoid arthritis of multiple sites ([facility]), Encounter for therapeutic drug monitoring * ERYTHROCYTE SEDIMENTATION RATE(Performed 07/04/2019) Performed for Seropositive rheumatoid arthritis of multiple sites ([facility]), Encounter for therapeutic drug monitoring * C-REACTIVE PROTEIN(Performed 07/04/2019) Performed for Seropositive rheumatoid arthritis of multiple sites ([facility]), Encounter for therapeutic drug monitoring * COMPREHENSIVE METABOLIC PANEL(Performed 07/04/2019) Performed for Seropositive rheumatoid arthritis of multiple sites ([facility]), Encounter for therapeutic drug monitoring * CBC W/O DIFFERENTIAL(Performed 07/04/2019) Performed for Seropositive rheumatoid arthritis of multiple sites ([facility]), Encounter for therapeutic drug monitoring * QUANTIFERON-TB GOLD PLUS 4-TUBE(Performed 07/04/2019) Performed for Seropositive rheumatoid arthritis of multiple sites ([facility]), Encounter for therapeutic drug monitoring * SS-B (SJOGREN'S) ANTIBODY(Performed 07/04/2019) Performed for Seropositive rheumatoid arthritis of multiple sites ([facility]), Encounter for therapeutic drug monitoring * SS-A (SJOGREN'S) ANTIBODY(Performed 07/04/2019) Performed for Seropositive rheumatoid arthritis of multiple sites ([facility]), Encounter for therapeutic drug monitoring * CYCLIC CITRUL PEPTIDE ANTIBODY IGG/IGA (CCP)(Performed 07/04/2019) Performed for Seropositive rheumatoid arthritis of multiple sites ([facility]), Encounter for therapeutic drug monitoring * RHEUMATOID FACTOR BLOOD QUANTITATIVE(Performed 07/04/2019) Performed for Seropositive rheumatoid arthritis of multiple sites ([facility]), Encounter for therapeutic drug monitoring * IGA BLOOD(Performed 07/04/2019) Performed for Seropositive rheumatoid arthritis of multiple sites ([facility]), Encounter for therapeutic drug monitoring * IGG BLOOD(Performed 07/04/2019) Performed for Seropositive rheumatoid arthritis of multiple sites ([facility]), Encounter for therapeutic drug monitoring * IGM BLOOD(Performed 07/04/2019) Performed for Seropositive rheumatoid arthritis of multiple sites ([facility]), Encounter for therapeutic drug monitoring * XR CHEST 2VW(Performed 07/04/2019) Performed for Encounter for therapeutic drug monitoring * LAB RESULTS ORDER(Performed 08/23/2018) * LAB RESULTS ORDER(Performed 08/05/2018) * LAB RESULTS ORDER(Performed 04/28/2018) * LAB RESULTS ORDER(Performed 03/17/2018) * LAB RESULTS ORDER(Performed 03/10/2018) * LAB RESULTS ORDER(Performed 12/06/2017) * LAB RESULTS ORDER(Performed 10/26/2017) * LAB HISTORICAL RESULTS-ONBASE(Performed 08/09/2017) * LAB HISTORICAL RESULTS-ONBASE(Performed 05/03/2017) * LAB HISTORICAL RESULTS-ONBASE(Performed 02/23/2017) * LAB HISTORICAL RESULTS-ONBASE(Performed 12/28/2016) * LAB HISTORICAL RESULTS-ONBASE(Performed 12/25/2016) * LAB HISTORICAL RESULTS-ONBASE(Performed 12/25/2016) * LAB HISTORICAL RESULTS-ONBASE(Performed 11/05/2016) * LAB HISTORICAL RESULTS-ONBASE(Performed 09/18/2016) * LAB HISTORICAL RESULTS-ONBASE(Performed 07/20/2016) * LAB HISTORICAL RESULTS-ONBASE(Performed 05/05/2016) * LAB HISTORICAL RESULTS-ONBASE(Performed 03/20/2016) * LAB HISTORICAL RESULTS-ONBASE(Performed 02/07/2016) * LAB HISTORICAL RESULTS-ONBASE(Performed 12/11/2015) * LAB HISTORICAL RESULTS-ONBASE(Performed 12/09/2015) * LAB HISTORICAL RESULTS-ONBASE(Performed 12/09/2015) * LAB HISTORICAL RESULTS-ONBASE(Performed 10/07/2015) * LAB HISTORICAL RESULTS-ONBASE(Performed 07/17/2015) * LAB HISTORICAL RESULTS-ONBASE(Performed 07/16/2015) * LAB HISTORICAL RESULTS-ONBASE(Performed 05/27/2015) * LAB HISTORICAL RESULTS-ONBASE(Performed 04/18/2015) * LAB HISTORICAL RESULTS-ONBASE(Performed 03/13/2015) * LAB HISTORICAL RESULTS-ONBASE(Performed 03/08/2015) * LAB HISTORICAL RESULTS-ONBASE(Performed 01/22/2015) * LAB HISTORICAL RESULTS-ONBASE(Performed 12/03/2014) * LAB HISTORICAL RESULTS-ONBASE(Performed 12/03/2014) * LAB HISTORICAL RESULTS-ONBASE(Performed 12/03/2014) * LAB HISTORICAL RESULTS-ONBASE(Performed 12/03/2014) * LAB HISTORICAL RESULTS-ONBASE(Performed 10/21/2014) * LAB HISTORICAL RESULTS-ONBASE(Performed 10/21/2014) * LAB HISTORICAL RESULTS-ONBASE(Performed 09/04/2014) * LAB HISTORICAL RESULTS-ONBASE(Performed 07/23/2014) * LAB HISTORICAL RESULTS-ONBASE(Performed 05/21/2014) * LAB HISTORICAL RESULTS-ONBASE(Performed 03/05/2014) * LAB HISTORICAL RESULTS-ONBASE(Performed 03/05/2014) * LAB HISTORICAL RESULTS-ONBASE(Performed 12/22/2013) * LAB HISTORICAL RESULTS-ONBASE(Performed 10/26/2013) * LAB HISTORICAL RESULTS-ONBASE(Performed 09/13/2013) * LAB HISTORICAL RESULTS-ONBASE(Performed 09/13/2013) * LAB HISTORICAL RESULTS-ONBASE(Performed 06/09/2013) * LAB HISTORICAL RESULTS-ONBASE(Performed 12/13/2012) * LAB HISTORICAL RESULTS-ONBASE(Performed 10/25/2012) * LAB HISTORICAL RESULTS-ONBASE(Performed 07/29/2012) * LAB HISTORICAL RESULTS-ONBASE(Performed 06/17/2012) * LAB HISTORICAL RESULTS-ONBASE(Performed 03/21/2012) * LAB HISTORICAL RESULTS-ONBASE(Performed 03/21/2012) * LAB HISTORICAL RESULTS-ONBASE(Performed 03/21/2012) * LAB HISTORICAL RESULTS-ONBASE(Performed 03/21/2012) * LAB HISTORICAL RESULTS-ONBASE(Performed 02/02/2012) * LAB HISTORICAL RESULTS-ONBASE(Performed 02/02/2012) * LAB HISTORICAL RESULTS-ONBASE(Performed 11/17/2011) * LAB HISTORICAL RESULTS-ONBASE(Performed 08/18/2011) Results * SS-A (SJOGREN'S) 52+60 ANTIBODIES (07/01/2021 1:41 PM SCHOOL COUNSELLOR) SS-A 52 Antibody 1 0 - 40 AU/mL 07/03/2021 5:58 AM SCHOOL COUNSELLOR [employer] ([facility]) Comment: INTERPRETIVE INFORMATION: SSA-52 (Ro52) (MARY ELLEN) Antibody, IgG 29 AU/mL or Less ............. Negative 30 - 40 AU/mL ................ Equivocal 41 AU/mL or Greater .......... Positive SSA-52 (Ro52) and/or SSA-60 (Ro60) antibodies are associated with a diagnosis of Sjogren syndrome, systemic lupus erythematosus (SLE), and systemic sclerosis. SSA-52 antibody overlaps significantly with the major SSc-related antibodies. SSA-52 (Ro52) antibody occurs frequently in patients with inflammatory myopathies, often in the presence of interstitial lung disease. SS-A 60 Antibody 0 0 - 40 AU/mL 07/03/2021 5:58 AM SCHOOL COUNSELLOR [employer] ([facility]) Comment: REFERENCE INTERVAL: SSA-60 (Ro60) (MARY ELLEN) Antibody, IgG 29 AU/mL or Less ............. Negative 30 - 40 AU/mL ................ Equivocal 41 AU/mL or Greater .......... Positive Performed By: [facility] [address] [place] [address] Transit Mix Operator: Cindy Messer MD Blood BLOOD SPECIMEN / Unknown Lab Venipuncture / Unknown 07/01/2021 1:41 PM SCHOOL COUNSELLOR 07/01/2021 1:55 PM SCHOOL COUNSELLOR Adolfo Young MD LAB - CHEMISTRY ODALIS DOLAN [employer] [facility]) [address] [place] [address], [facility] * QUANTIFERON-TB GOLD PLUS 4-TUBE (07/01/2021 1:41 PM SCHOOL COUNSELLOR) Only the most recent of2 resultswithin the time period is included. QuantiFERON NIL 0.03 IU/mL 2 8:51 PM SCHOOL COUNSELLOR [employer] ([facility]) Comment: Performed By: [facility] [address] [place] [address] Transit Mix Operator: Cindy Messer MD QuantiFERON TB Gold Plus Negative Negative 07/04/2021 8:51 PM SCHOOL COUNSELLOR [facility] [employer] [facility]) Comment: Interpretive Data: Quantiferon TB Gold Plus Interferon gamma release is measured for specimens from each of the four collection tubes. A qualitative result (Negative, Positive, or Indeterminate) is based on interpretation of the four values, NIL, MITOGEN minus NIL (MITOGEN-NIL), TB1 minus NIL (TB1-NIL), and TB2 minus NIL (TB2-NIL). The NIL value represents nonspecific reactivity produced by the patient specimen. The MITOGEN-NIL value serves as the positive control for the patient specimen, demonstrating successful lymphocyte activity. The TB1-NIL tube specifically detects CD4+ lymphocyte reactivity, specifically stimulated by the TB1 antigens. The TB2-NIL tube detects both CD4+ and CD8+ lymphocyte reactivity, stimulated by TB2 antigens. An overall Negative result does not completely rule out TB infection. A false-positive result in the absence of other clinical evidence of TB infection is not uncommon. Refer to: Updated Guidelines for Using Interferon Gamma Release Assays to Detect Mycobacterium tuberculosis Infection --- [place], 2010 (http://www.cdc.gov/mmwr/preview/mmwrhtml/zg0373n9.htm), for more information concerning test performance in low-prevalence populations and use in occupational screening. QuantiFERON Plus TB1 Minus NIL 0.00 0.00 - 0.34 IU/mL 07/04/2021 8:51 PM SCHOOL COUNSELLOR [facility] [employer] ([facility]) QuantiFERON Plus TB2 Minus NIL 0.00 0.00 - 0.34 IU/mL 07/04/2021 8:51 PM SCHOOL COUNSELLOR [facility] [employer] ([facility]) QuantiFERON Mitogen Minus NIL >10.00 IU/mL 07/04/2021 8:51 PM SCHOOL COUNSELLOR [facility] [employer] ([facility]) Blood BLOOD SPECIMEN / Unknown Lab Venipuncture / Unknown 07/01/2021 1:41 PM SCHOOL COUNSELLOR 07/01/2021 1:54 PM SCHOOL COUNSELLOR Adolfo Young MD LAB - CHEMISTRY ODALIS DOLAN [facility] Organization Address City/State/ZIP Co de Phone Number [facility] [employer] [facility]) [address] * SS-B (SJOGREN'S) ANTIBODY (07/01/2021 1:41 PM SCHOOL COUNSELLOR) Only the most recent of2 resultswithin the time period is included. Pathologist [facility] SS-B Antibody 0 0 - 40 AU/mL 07/03/2021 5:58 AM SCHOOL COUNSELLOR [facility] ([facility]) Comment: INTERPRETIVE INFORMATION: SSB ([place]) (MARY ELLEN) Ab, IgG 29 AU/mL or Less ............. Negative 30 - 40 AU/mL ................ Equivocal 41 AU/mL or Greater .......... Positive SSB ([place]) antibody is seen in 50-60% of Sjogren syndrome cases and is specific if it is the only MARY ELLEN antibody present. 15-25% of patients with systemic lupus erythematosus (SLE) and 5-10% of patients with progressive systemic sclerosis (PSS) also have this antibody. Performed By: [facility] [address] [place] [address] Transit Mix Operator: Cindy Messer MD Blood BLOOD SPECIMEN / Unknown Lab Venipuncture / Unknown 07/01/2021 1:41 PM SCHOOL COUNSELLOR 07/01/2021 1:55 PM SCHOOL COUNSELLOR Adolfo Young MD LAB - CHEMISTRY ODALIS DOLAN Performing Organization Address City/[facility] Co de Phone Number [facility] [employer] [facility]) [address] [place] [address] * (ABNORMAL) ERYTHROCYTE SEDIMENTATION RATE (07/01/2021 1:41 PM SCHOOL COUNSELLOR) Only the most recent of9 resultswithin the time period is included. Erythrocyte Sedimentation Rate Westergren 71(H) 0 - 30 MM/HR 07/01/2021 2:41 PM SCHOOL COUNSELLOR [facility] Blood BLOOD SPECIMEN / Unknown Lab Venipuncture / Unknown 07/01/2021 1:41 PM SCHOOL COUNSELLOR 07/01/2021 2:04 PM SCHOOL COUNSELLOR Adolfo Young MD LAB - HEMATOLOGY ORD ERABLES [facility] [address] [place] [address], [facility] [phone] * (ABNORMAL) CBC W AUTO DIFFERENTIAL (07/01/2021 1:41 PM SCHOOL COUNSELLOR) Only the most recent of2 resultswithin the time period is included. WBC 3.3(L) 3.5 - 10.5 10 3/uL 07/01/2021 2:59 PM [facility] RBC 4.77 3.80 - 5.20 10 6/uL 07/01/2021 2:59 PM [facility] Hemoglobin 13.9 12.0 - 15.6 g/dL 07/01/2021 2:59 PM [facility] Hematocrit 42.4 35.0 - 45.0 % 07/01/2021 2:59 PM [facility] MCV 88.9 80.7 - 98.3 fL 07/01/2021 2:59 PM [facility] MCH 29.1 26.7 - 34.0 pg 07/01/2021 2:59 PM [facility] MCHC 32.8 30.8 - 35.9 g/dL 07/01/2021 2:59 PM [facility] Platelet Count 181 150 - 400 10 3/uL 07/01/2021 2:59 PM [facility] Comment: Checked by peripheral smear. This is an appended report. These results have been appended to a previously preliminary verified report. RDW-SD 43.8 36.0 - 50.0 fL 07/01/2021 2:59 PM [facility] RDW-CV 13.4 11.2 - 14.8 % 07/01/2021 2:59 PM [facility] MPV 9.8 9.4 - 12.9 fL 07/01/2021 2:59 PM [facility] nRBC Absolute 0.00 0 10 3/uL 07/01/2021 2:59 PM [facility] nRBC Auto 0.0 0 /100 WBC 07/01/2021 2:59 PM [facility] Neutrophils % 36.0 35.0 - 70.0 % 07/01/2021 2:59 PM [facility] Lymphocytes % 45.2(H) 20.0 - 43.0 % 07/01/2021 2:59 PM [facility] Monocytes % 14.8(H) 5.0 - 13.0 % 07/01/2021 2:59 PM [facility] Eosinophils % 3.1 0.0 - 6.0 % 07/01/2021 2:59 PM [facility] Basophil % 0.9 0.0 - 2.0 % 07/01/2021 2:59 PM [facility] Neutrophils Absolute 1.2(L) 1.6 - 7.0 10 3/uL 07/01/2021 2:59 PM [facility] Lymphocyte Absolute 1.5 1.1 - 3.9 10 3/uL 07/01/2021 2:59 PM [facility] Monocytes Absolute 0.48 0.26 - 1.07 10 3/uL 07/01/2021 2:59 PM [facility] Eosinophils Absolute 0.10 0.00 - 0.47 10 3/uL 07/01/2021 2:59 PM [facility] Basophils Absolute 0.03 0.00 - 0.08 10 3/uL 07/01/2021 2:59 PM [facility] Immature Granulocytes % 0.0 0.0 - 1.0 % 07/01/2021 2:59 PM [facility] Immature Granulocytes Absolute 0.00 07/01/2021 2:59 PM [facility] Immature Platelet Fraction 3.2 1.1 - 6.2 % 07/01/2021 2:59 PM [facility] Blood BLOOD SPECIMEN / Unknown Lab Venipuncture / Unknown 07/01/2021 1:41 PM SCHOOL COUNSELLOR 07/01/2021 2:04 PM SCHOOL COUNSELLOR Adolfo Young MD LAB - HEMATOLOGY ORD ERABLES [facility] [address] [place] [address], [facility] [phone] * (ABNORMAL) COMPREHENSIVE METABOLIC PANEL (07/01/2021 1:41 PM SCHOOL COUNSELLOR) Only the most recent of9 resultswithin the time period is included. BUN 15 7 - 26 mg/dL 07/01/2021 2:34 PM [facility] Creatinine 0.94 0.56 - 0.96 mg/dL 07/01/2021 2:34 PM [facility] Sodium 134(L) 136 - 145 mmol/L 07/01/2021 2:34 PM [facility] Potassium 4.1 3.5 - 4.5 mmol/L 07/01/2021 2:34 PM [facility] Chloride 99 98 - 107 mmol/L 07/01/2021 2:34 PM [facility] CO2 23 22 - 29 mmol/L 07/01/2021 2:34 PM [facility] Glucose 106 70 - 115 mg/dL 07/01/2021 2:34 PM [facility] Calcium 9.5 8.4 - 10.2 mg/dL 07/01/2021 2:34 PM [facility] Protein Total 8.1 6.0 - 8.3 g/dL 07/01/2021 2:34 PM [facility] Albumin 3.8 3.4 - 5.0 g/dL 07/01/2021 2:34 PM [facility] Bilirubin Total 0.5 0.2 - 1.2 mg/dL 07/01/2021 2:34 PM [facility] Alkaline Phosphatase 49 40 - 150 U/L 07/01/2021 2:34 PM [facility] ALT 18 5 - 55 U/L 07/01/2021 2:34 PM [facility] AST 26 5 - 34 U/L 07/01/2021 2:34 PM [facility] Anion Gap 16 8 - 18 07/01/2021 2:34 PM [facility] BUN/Creatinine Ratio 16 7 - 23 07/01/2021 2:34 PM [facility] Osmolality Calculated 279 270 - 300 mOsm/kg 07/01/2021 2:34 PM [facility] Albumin/Globulin Ratio 0.9(L) 1.1 - 2.3 07/01/2021 2:34 PM [facility] eGFR by CKD-EPI 62(L) >=90 mL/min/1.7 3 m2 07/01/2021 2:34 PM SCHOOL COUNSELLOR [facility] Blood BLOOD SPECIMEN / Unknown Lab Venipuncture / Unknown 07/01/2021 1:41 PM SCHOOL COUNSELLOR 07/01/2021 2:04 PM SCHOOL COUNSELLOR Adolfo Young MD LAB - CHEMISTRY ODALIS DOLAN [facility] Organization Address City/State/ZIP Co de Phone Number [facility] [address] [place] [address], [facility] [phone] * XR CHEST 2VW (07/01/2021 1:32 PM SCHOOL COUNSELLOR) Only the most recent of2 resultswithin the time period is included. Anatomical Region Laterality Modality Chest Radiographic Lyla ging 07/01/2021 1:35 PM SCHOOL COUNSELLOR Impressions 07/01/2021 2:15 PM SCHOOL COUNSELLOR FINDINGS/IMPRESSION: Hyperinflated lungs. There is no focal consolidation, pleural effusion, or pneumothorax. The cardiomediastinal contours are normal. The visible bony thorax is intact. Report drafted by Radha Atkins M.D. (resident) This report was approved by Radha Atkins on 07/01/2021 1:41 PM . I, Dr. SARAH PARKER have personally reviewed and interpreted this examination/study. This report was electronically signed by SARAH PARKER on 07/01/2021 2:15 PM . Narrative 07/01/2021 2:15 PM SCHOOL COUNSELLOR EXAMINATION: XR CHEST 2VW HISTORY: Z51.81: Encounter for therapeutic drug monitoring COMPARISON: Chest x-ray dated 07/04/2019 Procedure Note Sarah Parker MD - 07/01/2021 EXAMINATION: XR CHEST 2VW HISTORY: Z51.81: Encounter for therapeutic drug monitoring COMPARISON: Chest x-ray dated 07/04/2019 FINDINGS/IMPRESSION: Hyperinflated lungs. There is no focal consolidation, pleural effusion,or pneumothorax. The cardiomediastinal contours are normal. The visiblebony thorax is intact. Report drafted by Radha Atkins M.D. (resident) This report was approved by Radha Atkins on 07/01/2021 1:41 PM. I, Dr. SARAH PARKER have personally reviewed and interpreted this examination/study. This report was electronically signed by SARAH PARKER on 07/01/2021 2:15PM . Adolfo Young MD DIAGNOSTIC IMAGING O RDERABLES * QUANTIFERON-TB GOLD PLUS 1-TUBE (06/04/2021 9:25 AM SCHOOL COUNSELLOR) Only the most recent of2 resultswithin the time period is included. [facility] QuantiFERON TB Gold Plus NEGATIVE NEGATIVE [facility] Comment: Negative test result. M. tuberculosis complex infection unlikely. NIL 0.02 IU/mL [facility] MITOGEN MINUS NIL RESULT 5.72 IU/mL [facility] TB1-NIL 0.01 IU/mL [facility] TB2-NIL 0.00 IU/mL [facility] Comment: The Nil tube value reflects the background interferon gamma immune response of the patient's blood sample. This value has been subtracted from the patient's displayed TB and Mitogen results. Lower than expected results with the Mitogen tube prevent false-negative Quantiferon readings by detecting a patient with a potential immune suppressive condition and/or suboptimal pre-analytical specimen handling. The TB1 Antigen tube is coated with the M. tuberculosis-specific antigens designed to elicit responses from TB antigen primed CD4+ helper T-lymphocytes. The TB2 Antigen tube is coated with the M. tuberculosis-specific antigens designed to elicit responses from TB antigen primed CD4+ helper and CD8+ cytotoxic T-lymphocytes. For additional information, please refer to https://education.Vahna.Cantargia/faq/IUA587 (This link is being provided for informational/ educational purposes only.) Test Performed at: [employer] [facility] [address] [place] [address] DENNIS VOGEL DO,MPH 06/04/2021 9:25 AM SCHOOL COUNSELLOR 06/04/2021 9:26 AM SCHOOL COUNSELLOR Adolfo Young MD LAB - CHEMISTRY ODALIS DOLAN [facility] Organization Address City/State/ZIP Co de Phone Number [facility] [address] [place] [address] * (ABNORMAL) URINALYSIS W/MICROSCOPIC NO CULTURE (06/04/2021 9:25 AM SCHOOL COUNSELLOR) Only the most recent of8 resultswithin the time period is included. Pathologist [facility] Color UA YELLOW YELLOW [facility] Appearance CLEAR CLEAR [facility] Specific Rogers UA 1.012 1.001 - 1.035 [facility] pH UA 7.5 5.0 - 8.0 [facility] Glucose UA NEGATIVE NEGATIVE [facility] Bilirubin UA NEGATIVE NEGATIVE [facility] Ketone UA NEGATIVE NEGATIVE [facility] Blood UA NEGATIVE NEGATIVE [facility] Protein UA NEGATIVE NEGATIVE [facility] Nitrite UA NEGATIVE NEGATIVE [facility] Leukocyte UA TRACE(A) NEGATIVE [facility] WBC UA NONE SEEN < OR = 5 /HPF [facility] RBC UA NONE SEEN < OR = 2 /HPF [facility] Epithelial Cell UA NONE SEEN < OR = 5 /HPF [facility] Bacteria UA NONE SEEN NONE SEEN /HPF [facility] Hyaline Casts NONE SEEN NONE SEEN /LPF [facility] Comment: Test Performed at: [employer] [address] [place] [address] DENNIS VOGEL DO,MPH Urine URINE SPECIMEN OBTAINED BY CLEAN CATCH PROCEDURE / Unknown 06/04/2021 9:25 AM SCHOOL COUNSELLOR 06/04/2021 9:26 AM SCHOOL COUNSELLOR Adolfo Young MD LAB - URINALYSIS ORD ERABLES Performing Organization Address [facility] Co de Phone Number [facility] [phone] [place] [phone] * C-REACTIVE PROTEIN (06/04/2021 9:25 AM SCHOOL COUNSELLOR) Only the most recent of8 resultswithin the time period is included. [facility] C-Reactive Protein 3.0 <8.0 mg/L [facility] Comment: Test Performed at: [employer] [address] [place] [address] DENNIS VOGEL DO,MPH Blood BLOOD SPECIMEN / Unknown 06/04/2021 9:25 AM SCHOOL COUNSELLOR 06/04/2021 9:26 AM SCHOOL COUNSELLOR Adolfo Young MD LAB - CHEMISTRY ORDHalina DOLAN Performing Organization Address [facility] Co de Phone Number [address] [address] * (ABNORMAL) CBC W/O DIFFERENTIAL (06/04/2021 9:25 AM SCHOOL COUNSELLOR) Only the most recent of8 resultswithin the time period is included. White Blood Cell Count 2.8(L) 3.8 - 10.8 Thousand/u L [facility] RBC 4.67 3.80 - 5.10 Million/uL [facility] Hemoglobin 13.0 11.7 - 15.5 g/dL [facility] Hematocrit 39.6 35.0 - 45.0 % [facility] MCV 84.8 80.0 - 100.0 fL [facility] MCH 27.8 27.0 - 33.0 pg [facility] MCHC 32.8 32.0 - 36.0 g/dL [facility] RDW 12.9 11.0 - 15.0 % [facility] Platelet Count 205 140 - 400 Thousand/u L [facility] MPV 9.2 7.5 - 12.5 fL [facility] Comment: Test Performed at: [employer] [address] [employer] [facility] [place] [address] DENNIS VOGEL DO,MPH Blood BLOOD SPECIMEN / Unknown 06/04/2021 9:25 AM SCHOOL COUNSELLOR 06/04/2021 9:26 AM SCHOOL COUNSELLOR Adolfo Young MD LAB - HEMATOLOGY ORD ERABLES Performing Organization Address [facility] de Phone Number [facility] [address] [place] [address] * (ABNORMAL) RHEUMATOID ARTHRITIS PANEL (08/13/2020 8:37 AM CDT) [facility] Rheumatoid Factor 479(H) <14 IU/mL [facility] Cyclic Citrullinated Peptide Antibody IgG >250(H) UNITS [facility] Comment: Reference Range Negative: <20 Weak Positive: 20-39 Moderate Positive: 40-59 Strong Positive: >59 Interpretation [facility] Comment: Consistent with rheumatoid arthritis in a patient with polyarthritis. In early RA, these positive test results for both RF and anti-CCP are predictive of progressive joint destruction. Test Performed at: [employer] [address] [employer] [address] DENNIS VOGEL DO,MPH 08/13/2020 8:37 AM CDT 08/13/2020 8:38 AM CDT Adolfo Young MD LAB - SEROLOGY ORDER CRUZ Performing Organization Address [facility] Co de Phone Number [facility] [address] [place] [address] * LAB RESULTS ORDER (07/06/2019 12:39 PM SCHOOL COUNSELLOR) Only the most recent of8 resultswithin the time period is included. Narrative 07/06/2019 12:39 PM SCHOOL COUNSELLOR Ordered by an unspecified provider. Scanned Document LAB - THERAPEUTIC DR ARREOLA MONITORING ORDERABLES * (ABNORMAL) CYCLIC CITRUL PEPTIDE ANTIBODY IGG/IGA (CCP) (07/04/2019 2:28 PM SCHOOL COUNSELLOR) CCP Antibodies IgG/IgA >250(H) 0 - 19 units 07/07/2019 9:06 PM SCHOOL COUNSELLOR [facility] ([facility]) Comment: Negative <20 Weak positive 20 - 39 Moderate positive 40 - 59 Strong positive >59 Blood BLOOD SPECIMEN / Unknown Lab Venipuncture / Unknown 07/04/2019 2:28 PM SCHOOL COUNSELLOR 07/04/2019 3:20 PM SCHOOL COUNSELLOR Narrative [facility] ([facility]) - 07/07/2019 9:06 PM SCHOOL COUNSELLOR Performed at: [facility] [id number] [employer] Sales Representative: Esther Estrella MD, Phone: [phone] Adolfo Young MD LAB - SEROLOGY ORDER CRUZ Performing Organization Address City/[facility]/ZIP Co de Phone Number [facility]) [address] [phone] * (ABNORMAL) RHEUMATOID FACTOR BLOOD QUANTITATIVE (07/04/2019 2:28 PM SCHOOL COUNSELLOR) Rheumatoid Factor 478(H) <30 IU/mL 07/04/2019 4:21 PM SCHOOL COUNSELLOR [facility] Comment:Result obtained by anabell boo. Blood BLOOD SPECIMEN / Unknown Lab Venipuncture / Unknown 07/04/2019 2:28 PM SCHOOL COUNSELLOR 07/04/2019 3:20 PM SCHOOL COUNSELLOR Adolfo Young MD LAB - CHEMISTRY ODALIS DOLAN [address] [phone] * SS-A (SJOGREN'S) ANTIBODY (07/04/2019 2:28 PM SCHOOL COUNSELLOR) SS-A (Ro) Antibody 2.3 0.0 - 19.9 Units 07/07/2019 12:52 PM SCHOOL COUNSELLOR [facility] Comment: MARY ELLEN Antibody Numeric Result Interpretation: <20.0 Units: Negative 20.0 - 39.0 Units: Weakly Positive >39.0 Units: Positive Blood BLOOD SPECIMEN / Unknown Lab Venipuncture / Unknown 07/04/2019 2:28 PM SCHOOL COUNSELLOR 07/04/2019 3:20 PM SCHOOL COUNSELLOR Adolfo Young MD LAB - CHEMISTRY ODALIS DOLAN [address] [phone] * IGM BLOOD (07/04/2019 2:28 PM SCHOOL COUNSELLOR) IgM 91 22 - 293 mg/dL 07/04/2019 3:48 PM SCHOOL COUNSELLOR [facility] Blood BLOOD SPECIMEN / Unknown Lab Venipuncture / Unknown 07/04/2019 2:28 PM SCHOOL COUNSELLOR 07/04/2019 3:20 PM SCHOOL COUNSELLOR Adolfo Young MD LAB - [place] [address], [facility] [phone] * IGG BLOOD (07/04/2019 2:28 PM SCHOOL COUNSELLOR) IgG 1,317 540-1,822 mg/dL 07/04/2019 3:47 PM SCHOOL COUNSELLOR [facility] Blood BLOOD SPECIMEN / Unknown Lab Venipuncture / Unknown 07/04/2019 2:28 PM SCHOOL COUNSELLOR 07/04/2019 3:20 PM SCHOOL COUNSELLOR Adolfo Young MD LAB - [place] [address], [facility] [phone] * (ABNORMAL) IGA BLOOD (07/04/2019 2:28 PM SCHOOL COUNSELLOR) IgA 807(H) 87 - 534 mg/dL 07/04/2019 3:57 PM SCHOOL COUNSELLOR [facility] Comment:Result obtained by anabell boo. Blood BLOOD SPECIMEN / Unknown Lab Venipuncture / Unknown 07/04/2019 2:28 PM SCHOOL COUNSELLOR 07/04/2019 3:20 PM SCHOOL COUNSELLOR Adolfo Young MD LAB - CHEMISTRY ODALIS DOLAN Performing Organization Address City/[facility]/ZIP Co de Phone Number [facility] [address] [place] [address] * LAB HISTORICAL RESULTS-ONBASE (08/09/2017) Only the most recent of51 resultswithin the time period is included. 08/09/2017 Historical Provider LAB - CHEMISTRY Christian GAN Performing Organization Address City/[facility]/ZIP Co de Phone Number [facility] [address] Care Teams Technology Education Teacher Relationship Specialty Start Date End Date Romeo Lemus MD [address] [place] [address] PCP - General 10/22/14
--- OUTSIDE RECORDS SUMMARY | 2024-06-23 10:24 | XMS_ITS | Clinical Summary ---
Author Organization [facility] Address [address] [place] [address] Care Team Providers Care Stereotype Finisher Name Role Phone Theresa Brandon MD Unavailable Harish Edwards MD Primary Care Provider [phone] Allergies Active Allergy Reactions Criticality Noted Date Comments Leflunomide Unknown,Rash,Hives High 04/01/2012 Medications calcium carbonate/vitam in D3 (CALCIUM+D ORAL) daily 8 Active BOOSTRIX TDAP 2.5-8-5 Lf-mcg-Lf/0.5mL vaccineIndicati ons:Diphtheria- Pertussis-Tetan us Combined Prevention TO BE ADMINISTERED BY PHARMACIST FOR IMMUNIZATION 0 8 Active acetaminophen 500 mg capsuleIndicati ons:Pain Take 2 capsules (1,000 mg total) by mouth every 6 (six) hours as needed for pain 4 Active cyclobenzaprine (FLEXERIL) 5 mg tabletIndicatio ns:Muscle Spasm Take 1 tablet (5 mg total) by mouth 3 (three) times a day as needed for muscle spasms 4 Active guaiFENesin (ROBITUSSIN) syrup 100 mg/5 mL Take 10 mL (200 mg total) by mouth 3 (three) times a day as needed for cough or congestion 60 mL 4 Active senna-docusate (PERICOLACE) 8.6-50 mgIndications:c onstipation Take 1 tablet by mouth 2 (two) times a day 20 tablet 4 Active lisinopriL (PRINIVIL,ZESTR IL) 20 mg tablet Take 1 tablet (20 mg total) by mouth daily 4 Active Rinvoq 15 mg tablet extended release 24 hr 4 Active sodium chloride 1,000 mg tablet Take 1 tablet (1 g total) by mouth 2 (two) times a day 4 Active Active Problems Problem Noted Date Diagnosed Date 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 No full-thickness tear. - CCWB LUE for clavicle and acromion injuries - PT/OT - non-op management per ortho, continue sling - Follow up with Ortho Trauma on 01/11/24 Syncope 12/16/2023 Assessment & Plan (12/21/2023 2:44 PM CDT): - TTE: Normal LV and RV size and systolic function. Normal global LV myocardial longitudinal function and strain pattern. Normal LV mass. Normal LA and RA size. Mild TR and FL. PASP 32 mmHg.Normal LV diastolic function. IVC collapsed at rest - consider intravascular volume contraction. Normal aorta -OSVS negative -Carotid duplex w/o significant stenosis - Follow up with PCP for further syncope work up Discharge planning issues 12/16/2023 Assessment & Plan (12/21/2023 1:57 PM CDT): - 12/15 Admitted, CM intake - 12/16 Working with PT/OT, syncope workup ordered - 12/19: Pending TTE for syncope workup - 12/20: Syncopal workup complete. Discharge. Fall, initial encounter 2023 Assessment & Plan (2023 9:32 PM CDT): - syncopal workup pending Multiple rib fractures 2023 Assessment & Plan (12/21/2023 1:53 PM CDT): # L 3-5 rib fx - initially OU due to rib score , now floor - Cont working on IS, current IS is 750-1000 - Pulmonary hygiene - Tolerating room air - CXR as clinically indicated - Follow up with the Trauma Surgery clinic in approximately 2 weeks with a chest xray 1 hour prior to your appointment Fracture of clavicle, left, closed 2023 Assessment & Plan (12/21/2023 1:57 PM CDT): - Ortho c/s - Non-op management - CCWB LUE - Cont sling - PT/OT - Follow up with Ortho Trauma on 01/11/24 Closed displaced fracture of left acromial proce ss 2023 Assessment & Plan (12/21/2023 1:57 PM CDT): - Ortho c/s, non-op - WBAT RUE, CCWB LUE, WBAT RLE, WBAT LLE - Cont sling - PT/OT - Follow up with Ortho Trauma on 01/11/24 Pneumocephalus 2023 Assessment & Plan (12/21/2023 1:51 PM CDT): - Neurosurgery consulted (Dr. Mcgowan) - Neuro checks monitored - 12/15 CTH with stability - No keppra needed - BI consult - Patent may be on antiplatelet/anticoagulation if needed - Follow up in the Neurosurgery clinic in 3-4 weeks with a non-contrast brain CT prior to the appointment. Appointment scheduling [facility], , after-hours emergency [phone] or Temporal bone fracture (CMS/HCC) 2023 Assessment & Plan (12/21/2023 1:49 PM CDT): #Blood in L EAC #Bilateral mastoid effusions - ENT c/s - Facial nerve intact - hearing intact - ofloxacin gtt BID for 5 days to left EAC for otorrhea - Follow Up: Audiogram and otology as outpatient in 4-6 weeks (call [phone] to schedule this with follow up appt) Acute traumatic pain 2023 Assessment & Plan (12/17/2023 12:46 PM CDT): - Tylenol scheduled - Flexeril PRN - Oxycodone PRN Osteopenia 08/27/2016 Osteoporosis 07/25/2014 Rheumatoid arthritis 07/25/2014 Immunizations Name Administration Dates Next Due Influenza, Quad, Adjuvantate d, Intramuscular 02/19/2020 Influenza, Quadrivalent, Hig h Dose, Preservative Free, Intrr 03/08/2019,02/22/2018,02/16/2017,03/04,03/06/2015 Influenza, Quadrivalent, Spl it, Preservative Free, Intramuscular 02/14/2014 Influenza, Trivalent, High D ose, Split, Preservative Free, Intramuscular 03/08/2019,02/22/2018,02/16/2017,03/04,03/06/2015 Influenza, Unspecified 03/03/2013,03/21/2012 Pfizer SARS-CoV-2 Monovalent Vaccination (12+ Yrs) PURPLE 07/04/2020,06/13/2020 Pneumococcal Conjugate PCV 13 05/29/2015 Tdap 10/28/2017,12/24/2012 ZOSTER Recombinant 08/25/2018,04/29/2018 Surgical History Surgery Date Site/Laterality Comments CATARACT EXTRACTION Medical History Medical History Date Comments Rheumatoid arthritis (HCC) Dizziness Tinnitus HL (hearing loss) Autoimmune disease (CMS/HCC) (HCC) High blood pressure Osteoporosis Family History Medical History Relation Name Comments Heart attack Father Marcos Mack Heart failure Father Marcos Mack Osteoarthritis Mother Becky Mack Osteoporosis Mother Becky Mack Family histor y of osteoporosis - (Added by TW Conv) Osteoporosis Other Family history of osteoporosis - (Added by TW Conv) Relation Name Status Comments Father Marcos Mack Mother Becky Mack Other Social History Tobacco Use Types Packs/Day Years Used Date Smoking Tobacco: Never Smokeless Tobacco: Never [facility] Utilities Answer Date Recorded In the past 12 months has th e electric, gas, oil, or water company threatened to shut off services in your home? No 12/16/2023 Humiliation, Afraid, Rape, and Kick questionnair e Answer Date Recorded Within the last year, have y ou been afraid of your partner or ex-partner? No 12/16/2023 Within the last year, have y ou been humiliated or emotionally abused in other ways by your partner or ex-partner? No Within the last year, have y ou been kicked, hit, slapped, or otherwise physically hurt by your partner or ex-partner? No 12/16/2023 Within the last year, have y ou been raped or forced to have any kind of sexual activity by your partner or ex-partner? No 12/16/2023 Social Connection and Isolat ion Panel [NHANES] Answer Date Recorded In a typical week, how many times do you talk on the phone with family, friends, or neighbors? More than three times a week 12/16/2023 How often do you get togethe r with friends or relatives? More than three times a week 12/16/2023 How often do you attend chur ch or denominational services? More than 4 times per year 12/16/2023 Do you belong to any clubs o r organizations such as sikh groups, unions, fraternal or athletic groups, or school groups? Yes 12/16/2023 How often do you attend meet ings of the clubs or organizations you belong to? More than 4 times per year 12/16/2023 Are you , , di vorced, , never , or living with a partner? 12/16/2023 AUDIT-C Answer Date Recorded Q1: How often do you have a drink containing alc ohol? Monthly or less 12/16/2023 Q2: How many drinks containi ng alcohol do you have on a typical day when you are drinking? 1 or 2 12/16/2023 Q3: How often do you have si x or more drinks on one occasion? Never 12/16/2023 Overall Financial Resource Strain (CARDIA) Answe r Date Recorded How hard is it for you to pa y for the very basics like food, housing, medical care, and heating? Not hard at all 12/16/2023 [facility] of Occupat [facility] - Occupational Stress Questionnaire Answer Date Recorded Do you feel stress - tense, restless, nervous, or anxious, or unable to sleep at night because your mind is troubled all the time - these days? Only a little 12/16/2023 Exercise Vital Sign Answer Date Recorde d On average, how many days pe r week do you engage in moderate to strenuous exercise (like a brisk walk)? 3 days 12/16/2023 On average, how many minutes do you engage in exercise at this level? 30 min 12/16/2023 Hunger Vital Sign Answer Date Recorded Within the past 12 months, y ou worried that your food would run out before you got the money to buy more. Never true 12/16/19 24 Within the past 12 months, t he food you bought just didn't last and you didn't have money to get more. Never true 12/16/2023 PRAPARE - Transportation Answer Date Re corded In the past 12 months, has l ack of transportation kept you from medical appointments or from getting medications? No 05/2023 In the past 12 months, has l ack of transportation kept you from meetings, work, or from getting things needed for daily living? No 12/16/2023 Housing Stability Vital Sign Answer Rory e Recorded In the last 12 months, was t here a time when you were not able to pay the mortgage or rent on time? No 12/16/2023 Number of Times Moved in the Last Year Not on fi le 12/16/2023 At any time in the past [address] [facility], were you homeless or living in a [facility] (including now)? No 12/16/2023 Personal Safety Answer Date Recorded Have you ever been in or are you currently in a harmful physical or emotional relationship or is someone making you feel afraid or unsafe? Denies 12/16/2023 Comments Unknown Sex and Gender Information Value Date Recorded Sex Assigned at Not on file Legal Sex Female 8:22 PM CUSTOMER SERVICE OFFICER Gender Identity Female 02/07/2019 1:03 PM CDT Sexual Orientation Not on file Obstetrics History Last Filed Vital Signs Vital Sign Reading Time Taken Comments Blood Pressure 165/79 02/22/2024 10:58 AM CDT Pulse 71 02/22/2024 10:58 AM CDT Temperature 36.8 C (98.2 F) 02/22/2024 10:58 AM CDT Respiratory Rate 17 02/22/2024 10:58 AM CDT Oxygen Saturation 100% 02/22/2024 10:58 AM CDT Inhaled Oxygen Concentration - - Weight 54.4 kg (120 lb) 02/22/2024 10:58 AM CDT Height 154.9 cm (5' 1 ) 12/17/2023 9:50 AM CDT Body Mass Index 22.67 12/17/2023 9:50 AM CDT Plan of Treatment Health Maintenance Due Date Last Done Comments Depression Screening 1940 Hepatitis B Screening 1958 Well Visit 65+ 12/16/2007 Pneumococcal vaccine 65+ (2 of 2 - PPSV23 or PCV20) 05/29/2016 05/29/2015 Osteoporosis Screening-Bone Density Scan 06/30/2023 06/30/2021, 02/12/2020, 02/07/2019, Additional history exists Covid-19 Vaccine (3 - 2023-2 5 season) 2024 07/04/2020, 06/13/2020 Influenza Vaccine (#1) 2024 , 03/08/2019, 03/08/2019, Additional history exists Fall Risk Assessment 12/20/2024 12/21/2023 DTaP/Tdap/Td Vaccine (3 - Td or Tdap) 10/29/2027 10/28/2017, 12/24/2012 Zoster Vaccine Completed 08/25/2018, 04/29/2018 Procedures Procedure Name Priority Date/Time Associated Diagnosis Comments DEXA AXIAL SKELETON BONE DENSITY 1 OR MORE SITES Schedule Routine, Read Routine (OP Routine) 06/30/2021 2:03 PM CUSTOMER SERVICE OFFICER Osteopenia of multiple sites from Last 3 Months or Most Recently Relevant to Health Maintenance Results * Dexa Axial Skeleton Bone Density 1 or 2 Site (06/30/2021 2:03 PM CUSTOMER SERVICE OFFICER) Anatomical Region Laterality Modality Body N/A Radiographic Lyla ging Narrative 06/30/2021 4:18 PM CUSTOMER SERVICE OFFICER Patient Name: Patsy Kerns Date of : 1940 Date of scan: 06/30/2021 Bone mineral density was performed on a [employer] Densitometer. Based on machine cross-calibration and precision studies the least significant changes of this densitometer is 0.024 g/cm2 at the spine, 0.020 g/cm2 at the total proximal femur, and 0.014g/cm2 at the forearm. HISTORY: This is a 80 y.o. postmenopausal female with a history of low bone mass and rheumatoid arthritis. She reports that she has never smoked. She has never used smokeless tobacco. She is currently on treatment with calcium and vitamin D; and was previously treated with zoledronic acid (Reclast). INDICATIONS: Menopause status and history of low bone mass. FINDINGS: BONE MINERAL DENSITY OF THE LUMBAR SPINE Bone Mineral Density (BMD) of the lumbar spine was measured from L1-L4 and the average density was calculated to be 0.922 gm/cm2. This corresponds to a T-score (standard deviations from the mean of young adults) of -1.1. When compared to the previous study of 02/12/2020 there has been a 0.045 gm/cm (5.2%) increase in bone density that is considered significant. BONE MINERAL DENSITY OF THE PROXIMAL FEMUR Bone Mineral Density (BMD) of the left hip total was found to be 0.722 gm/cm2. This corresponds to a T-score standard deviations from the mean of young adults of -1.8. Femoral neck is 0.607 gm/cm2 with a T-score (standard deviations from the mean of young adults) of -2.2. When compared to the previous study of 02/12/2020 there has been no significant changes in bone density. BONE MINERAL DENSITY OF THE FOREARM Bone Mineral density (BMD) of the left proximal 1/3 of the radius measures 0.528 gm/cm2. This corresponds to a T-score (standard deviations from the mean of young adults) of -2.8. There is no previous study available for comparison. A forearm bone density study was performed at the request of the ordering physician. SUMMARY: Bone mineral density shows evidence of osteoporosis and marked increase risk of fracture. There has been a significant increase in bone density since previous measurement. ADDITIONAL COMMENTS: Postmenopausal Women and Men Over 50: Diagnostic criteria: Osteoporosis: BMD at or below -2.5 T-score; Osteopenia (low bone mass): BMD between -1.0 and -2.5 T-score. If the patient has a history of a fragility fracture, a fracture that occurred with trauma equivalent to a fall from a standing position or less, then the diagnosis is osteoporosis regardless of bone density. The history and data sections of the bone mineral density scan were prepared by Lizbeth Alexis) BRITTA who is accredited by the International Society of Clinical Densitometry. The overall patient assessment and scan interpretation were performed by Joaquín Oglesby M.D. who is certified by the International Society of Clinical Densitometry. [id number] Joaquín Oglesby MD IMG DXA PROCEDURES Final Result from Last 3 Months or Most Recently Relevant to Health Maintenance Insurance [facility] MEDICARE MEDICARE SOLUTIONS [facility] MEDICARE [facility] MEDIC[facility] Address: [address] [place] [address] Advance Directives For more information, please contact: [phone] * Full Code (Latest Code Status on File) Date Activated Date Inactivated Comments 12/16/2023 12:17 PM 12/21/2023 9:33 PM Care Teams Stereotype Finisher Relationship Specialty Start Date End Date Harish Edwards MD [address] [place] [address] PCP - General Family Medicine 12/16/23 Theresa Brandon MD [address] [place] [address] Medical Oncologist/Radio Assembler Hematology 06/21/20
--- OUTSIDE RECORDS SUMMARY | 2024-06-23 10:24 | XMS_ITS | Clinical Summary ---
Author Organization [facility] Address [address] [place] [address] Care Team Providers Care Patient Assessment Coordinator Name Role Phone Romeo Lemus MD Primary Care Provider [phone] Source Comments [facility],non-owned Affiliates and Associated Physician Practices is amultiple site organization consisting of ambulatory clinics and hospital sitesin [place], [place], [place] and [place]. This disclosure is being madepursuant to the Care Everywhere program and may not contain all information available regarding this patient. Last updated 18.[facility] Allergies Active Allergy Reactions Criticality Noted Date Comments Leflunomide Skin Reactions High 04/01/2012 Medications * Be aware that medications may not be up to date on this document. Alwaysverify current medications with the patient. Medication Sig Dispensed Refills Start Date End Date Status etanercept (ENBREL) 25 MG/0.5ML prefilled syringe INJECT ONE SYRINGE SUBCUTANEOUSLY TWICE A WEEK. 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 7 [facility] without organ or system involvement with positive rheumatoid factor 05/25/2016 Encounter for therapeutic drug level monitoring 05/25/2016 Adverse effect of drug or medicament 02/28/2015 Resolved Problems Problem Noted Date Diagnosed Date Resolved Date Other injury of unspecified body region, initial encounter 04/29/2015 02/13/2018 Immunizations Name Administration Dates Next Due [place] Notable Limited primary monoval ent 12+ yr 0.3mL Purple cap 07/04/2020,06/13/2020 INFLUENZA VACCINE 02/22/2018, 7,03/04/2016,2014,02/14/2014,03/03/2013,03/21/2012 INFLUENZA VACCINE, ADJUVANTE D, QUADR. (FLUAD QUADRIVALENT; 65Y+) (AIIV4) 02/19/2020 INFLUENZA VACCINE, HIGH-DOSE , QUADR. (FLUZONE HIGH-DOSE QUADRIVALENT; 65Y+), 0.7 ML (HD-IIV4) 03/08/2019 Pneumococcal Pcv13 Conj 05/29/2015 TDAP (7yrs+) 10/28/2017,12/24/2012 Zoster Hzv Vacc Recombinant Inj Im 08/25/2018, Social History Tobacco Use Types Packs/Day Years [...] Comments Blood Pressure 142/88 07/01/2021 12:14 PM BOLT MAKER Pulse 78 10/29/2020 1:00 PM CDT Temperature 36.8 C (98.2 F) 07/01/2021 12:14 PM BOLT MAKER Respiratory Rate 16 10/29/2020 1:00 PM CDT Oxygen Saturation 98% 10/29/2020 1:00 PM CDT Inhaled Oxygen Concentration - - Weight 53.5 kg (118 lb) 07/01/2021 12:14 PM BOLT MAKER Height 165.1 cm (5' 5 ) 07/01/2021 12:14 PM BOLT MAKER Body Mass Index 19.64 07/01/2021 12:14 PM BOLT MAKER Plan of Treatment Health Maintenance Due Date Last Done Comments BONE DENSITY TESTING 1940 PNEUMOCOCCAL VACCINE 50+ (2 of 2 - PPSV23) 05/29/2016 05/29/2015 Respiratory Syncytial Virus (RSV) Vaccine Pt: or over 60 yrs (1 - 1-dose 75+ series) 2017 COVID-19 VACCINE (3 - season) 2024 07/04/2020, 06/13/2020 INFLUENZA VACCINE (#1) 2024 , 03/08/2019, 02/22/2018, Additional history exists DEPRESSION SCREENING 05/17/2024 MEDICARE AWV CALENDAR YEAR 2024 DTAP/TDAP/TD VACCINES (3 - Td or Tdap) 10/29/2027 10/28/2017, 12/24/2012 ZOSTER VACCINE Completed 08/25/2018, 04/29/2018 HEPATITIS B VACCINE Aged Out No longe r eligible based on patient's age to complete this topic HIB VACCINE Aged Out No longer eligi ble based on patient's age to complete this topic HPV VACCINE Aged Out No longer eligi ble based on patient's age to complete this topic MENINGOCOCCAL (Group B) VACCINE Aged Out No longer eligible based on patient's age to complete this topic MENINGOCOCCAL VACCINE Aged Out No vikash sabra eligible based on patient's age to complete this topic Care Teams Patient Assessment Coordinator Relationship Specialty Start Date End Date Romeo Lemus MD [address] [place] [id number] [facility] - General 10/22/14
--- OUTSIDE RECORDS SUMMARY | 2024-06-23 10:24 | XMS_ITS | Clinical Summary ---
[facility] Organization [facility] Address [address] [address] Care Team Providers Care Induction Furnace Operator Name Role Phone Harish Edwards MD Primary Care Provider [phone] Allergies Active Allergy Reactions Criticality Noted Date Comments Leflunomide Hives,Rash,Unknown High 04/01/2012 Medications calcium carbonate/vitami n D3 (CALCIUM WITH VITAMIN D ORAL) Take by mouth. 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 Encounters Date Type Department Care Team Description 06/14/2024 External Device Data [facility] ABSTRACTION Provider, Abstract 06/08/2024 External Device Data [facility] ABSTRACTION Provider, Abstract from Last 3 Months Family History Medical History Relation Name Comments Heart Disease Father Relation Name Status Comments Father Mother Social History Tobacco Use Types Packs/Day Years Used Date Smoking Tobacco: Never Alcohol Use Standard Drinks/Week Comments Yes 0 (1 standard drink = 0.6 oz pur e alcohol) Comments Unknown Sex and Gender Information Value Date Recorded Sex Assigned at Not on file Legal Sex Female 3:43 PM CDT Gender Identity Not on file Sexual Orientation Not on file Last Filed Vital Signs Vital Sign Reading Time Taken Comments Blood Pressure 182/81 10/19/2023 1:08 PM CDT Pulse 66 10/19/2023 1:06 PM CDT Temperature 36.4 C (97.5 F) 10/19/2023 1:06 PM CDT Respiratory Rate 14 10/19/2023 1:06 PM CDT Oxygen Saturation 97% 10/19/2023 1:06 PM CDT Inhaled Oxygen Concentration - - Weight 53.1 kg (117 lb) 10/19/2023 1:06 PM CDT Height 165.1 cm (5' 5 ) 11/28/2021 2:08 PM CDT Body Mass Index 19.47 11/28/2021 2:08 PM CDT Plan of Treatment Upcoming Encounters Date Type Department Care Team (Late st Contact Info) Description 07/18/2024 10:15 AM CONSTRUCTION TECHNOLOGY INSTRUCTOR Office Visit [facility] Oncology and Hematology - [place] [address] [facility] [address] [place] [address] Daniel Brizuela MD [address] [place] [address] Health Maintenance Due Date Last Done Comments PNEUMOCOCCAL VACCINE 65+ YEA RS (2 of 2 - PPSV23) 05/29/2016 05/29/2015 RSV VACCINE (60+ or ) (1 - 1-dose 75+ series) 2017 INFLUENZA VACCINE (#1) 2023 0, 03/08/2019, 02/22/2018, Additional history exists DTAP/TDAP/TD VACCINES (3 - T d or Tdap) 10/29/2027 10/28/2017, 12/24/2012 ZOSTER VACCINE Completed 08/25/2018, 04/29/2018 OSTEOPOROSIS SCREENING Completed 2, 06/30/2021, 02/12/2020, Additional history exists Insurance [employer] PPO [facility] Care Teams Induction Furnace Operator Relationship Specialty Start Date End Date Harish Edwards MD [address] [place] [address] PCP - General Family Practice 11/28/21
--- OUTSIDE RECORDS SUMMARY | 2024-06-23 10:24 | XMS_ITS | Clinical Summary ---
Author Organization [facility] Address [address] [place] [address] Care Team Providers Care Dehydrogenation Supervisor Name Role Phone Romeo Lemus MD Primary Care Provider [phone] Adolfo Young MD Unavailable Joaquín Oglesby MD Unavailable [phone] Allergies Active Allergy Reactions Criticality Noted Date Comments Leflunomide Hives 10/25/2015 Medications ENBREL 25 MG/0.5ML Solution Prefilled Syringe 25 mg injection twice weekly 9 Active meloxicam 15 MG tablet Take 15 mg by mouth daily as needed. 1 9 Active calcium, elemental, 600 MG tablet Take 1 tablet by mouth daily. 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 ([facility]/HCC HHS/HCC) 05/25/2016 Other skilled nursing (current) drug therapy 7 Multiple thyroid nodules 12/09/2015 Overview (03/08/2019): Transitioned From: Thyroid nodule Hepatic cyst 10/08/2015 Medication management 07/23/2015 Overview (03/08/2019): Transitioned From: intermediate card tender use of drug Osteoporosis 07/25/2014 Strabismus 01/18/2014 Resolved Problems Problem Noted Date Diagnosed Date Resolved Date Elevated blood pressure read ing without diagnosis of hypertension 01/18/2014 04/18/2020 Immunizations Name Administration Dates Next Due Fluzone High Dose - >Age 65 (Prefilled Syringe) 03/08/2019,02/22/2018,02/16/2017,2015,03/06/2015 Influenza (Generic) 02/14/2014,03/03/2013,2011 Influenza Adult (Generic) 02/22/2018,07/2016,03/04/2016,2014,02/14/2014,03/21/2012 PFIZER COVID-19 (ORIGINAL FORMULATION, PURPLE CAP) mRNA, LNP-S, PF, 30 MCG/0.3 ML DOSE 07/04/2020,06/13/2020 Pneumococcal (Prevnar 13) 05/29/2015 Shingrix 08/25/2018,04/29/2018 Tdap (Generic) 10/28/2017,12/24/2012 Family History Medical History Relation Comments None Father None Mother Breast Cancer Neg Hx Relation Status Comments Father Mother Social History Tobacco Use Types Packs/Day Years Used Date Smoking Tobacco: Never Smokeless Tobacco: Never Tobacco Cessation:Counseling Given: No Alcohol Use Standard Drinks/Week Comments Yes 0 (1 standard drink = 0.6 oz pur e alcohol) rare AUDIT-C Answer Date Recorded Frequency of Alcohol Consumption 2-4 times a wed03/08/2019 Average Number of Drinks Not on file 019 Frequency of Binge Drinking Not on file 02/15 PHQ-2 Answer Date Recorded PHQ-2 Score - If the patient scores above 3, please move on to questions 3-9 0 08/01/2020 Education Answer Date Recorded What is the highest level of school you have completed or the highest degree you have received? Master's degree (e.g., MA, MS, Benji, MEd, DONKEY ENGINE FIRER/FIREMAN, STERLING) 03/08/2019 Comments No Sex and Gender Information Value Date Recorded Sex Assigned at Female 03/08/2019 8:01 AM CDT Legal Sex Female 7:01 PM CDT Gender Identity Female 03/08/2019 8:01 AM CDT Sexual Orientation Straight 03/08/2019 8: 01 AM CDT Last Filed Vital Signs Vital Sign Reading Time Taken Comments Blood Pressure 126/70 05/21/2021 1:07 PM BRANCH MAKER Pulse 88 04/16/2021 1:55 PM BRANCH MAKER Temperature 36.9 C (98.5 F) 04/16/2021 10:53 AM BRANCH MAKER Respiratory Rate 20 04/16/2021 1:55 PM BRANCH MAKER Oxygen Saturation 99% 04/16/2021 10:53 AM BRANCH MAKER Inhaled Oxygen Concentration - - Weight 54 kg (119 lb) 05/21/2021 1:07 PM BRANCH MAKER Height 165.1 cm (5' 5 ) 05/21/2021 1:07 PM BRANCH MAKER Body Mass Index 19.8 05/21/2021 1:07 PM BRANCH MAKER Plan of Treatment Health Maintenance Due Date Last Done Comments Annual Medicare Wellness Visit 12/16/2007 Pneumococcal Vaccine: 65+ Years (2 of 2 - PPSV23 or PCV20) 07/24/2015 05/29/2015 RSV Immunization or 60+ Years (1 - 1-dose 75+ series) 2017 COVID-19 Vaccine (3 - season) 2024 07/04/2020, 06/13/2020 Influenza Adult (#1) 2024 03/08/2019, 02/22/2018, 02/22/2018, Additional history exists DTaP, Tdap and Td Vaccines (3 - Td or Tdap) 10/29/2027 10/28/2017, 12/24/2012 Zoster Vaccines Completed 08/25/2018, 04/29/2018 Dexa Scan (General) Completed 02/12/2020, 9 Meningococcal B Vaccine Aged Out No l onger eligible based on patient's age to complete this topic Meningococcal Vaccine Aged Out No vikash sabra eligible based on patient's age to complete this topic RSV Immunizations Under 20 Months Aged Out No longer eligible based on patient's age to complete this topic Insurance [facility] MEDICARE Advance Directives Documents on File Type Date Recorded Patient Residential Direct Support Professional Expl anation Advance Directives and Living Will 07/19/2019 2:39 PM POLST - ATTEMPT - 07/07/19 Advance Directives and Living Will 11/22/2017 [employer] DIRECTIVES Care Teams Dehydrogenation Supervisor Relationship Specialty Start Date End Date Romeo Lemus MD PCP - General INTERNAL MEDICINE 12/07/18 Adolfo Young MD [address] [place] [address] Consulting Physician RHEUMATOLOGY 03/08/19 Joaquín Oglesby MD [address] [place] [address] [address] [place] [address] Consulting Physician ENDOCRINOLOGY 04/18/20
--- OUTSIDE RECORDS SUMMARY | 2024-06-23 10:24 | XMS_ITS | Referral Summary ---
Author Organization [facility] [employer] Address [address] [place] [address] Care Team Providers Care Binder And Wrapper Packer Name Role Phone Romeo Lemus MD Primary Care Provider [phone] Source Comments [facility],non-owned Affiliates and Associated Physician Practices is amultiple site organization consisting of ambulatory clinics and hospital sitesin [place], [place], [place] and [place]. This disclosure is being madepursuant to the Care Everywhere program and may not contain all information available regarding this patient. Last updated 18.[facility] [employer] Allergies Active Allergy Reactions Criticality Noted Date [...] Problems Problem Noted Date Diagnosed Date Other equipment operator intermodal yard (current) drug therapy 7 Rheumatoid arthritis of [facility] sites without organ or system involvement with positive rheumatoid factor 05/25/2016 Encounter for therapeutic drug level monitoring 05/25/2016 Adverse effect of drug or medicament 02/28/2015 Resolved Problems Problem Noted Date Diagnosed Date Resolved Date Other injury of unspecified body region, initial encounter 04/29/2015 02/13/2018 Immunizations Name Administration Dates Next Due Adelaide Brennan primary monoval ent 12+ yr 0.3mL Purple [...] Comments Blood Pressure 142/88 07/01/2021 12:14 PM SUPERVISOR FISH BAIT PROCESSING Pulse 78 10/29/2020 1:00 PM CDT Temperature 36.8 C (98.2 F) 07/01/2021 12:14 PM SUPERVISOR FISH BAIT PROCESSING Respiratory Rate 16 10/29/2020 1:00 PM CDT Oxygen Saturation 98% 10/29/2020 1:00 PM CDT Inhaled Oxygen Concentration - - Weight 53.5 kg (118 lb) 07/01/2021 12:14 PM SUPERVISOR FISH BAIT PROCESSING Height 165.1 cm (5' 5 ) 07/01/2021 12:14 PM SUPERVISOR FISH BAIT PROCESSING Body Mass Index 19.64 07/01/2021 12:14 PM SUPERVISOR FISH BAIT PROCESSING Plan of Treatment Not on file Care Teams Binder And Wrapper Packer Relationship Specialty Start Date End Date Romeo Lemus MD [address] [place] [address] PCP - General 10/22/14
--- OUTSIDE RECORDS SUMMARY | 2024-06-23 10:24 | XMS_ITS | Referral Summary ---
Author Organization [facility] Address [address] [place] [address] Care Team Providers Care Drywall Carrier Name Role Phone Theresa Brandon MD Unavailable Harish Edwards MD Primary Care Provider [phone] Allergies Active Allergy Reactions Criticality Noted Date [...] LA and RA size. Mild TR and AZ. PASP 32 mmHg.Normal LV diastolic function. IVC [...] the appointment. Appointment scheduling [facility], , after-hours emergency [phone] or Temporal bone fracture (CMS/HCC) 2023 Assessment & Plan (12/21/2023 1:49 PM CDT): #Blood in L EAC #Bilateral mastoid effusions - ENT c/s - Facial nerve intact - hearing intact - ofloxacin gtt BID for 5 days to left EAC for otorrhea - Follow Up: Audiogram and otology as outpatient in 4-6 weeks (call [phone] to schedule this with follow up appt) [...] 13 05/29/2015 Tdap 10/28/2017,12/24/2012 ZOSTER Recombinant 08/25/2018,04/29/2018 Social History Tobacco Use Types Packs/Day Years Used Date Smoking Tobacco: Never Smokeless Tobacco: Never FamilyApp Utilities Answer Date Recorded In the past 12 months has e [email or web address], gas, oil, or water [employer] threatened to shut off services in your [...] 12/16/2023 How often do you attend chur or christian services? More than 4 times per year 12/16/2023 Do you belong to any clubs o r organizations such as jain groups, unions, fraternal or athletic groups, or [...] and heating? Not hard at all 12/16/2023 [facility] of Occupat ional Health - Occupational Stress Questionnaire Answer Date Recorded [...] any time in the past 12 m [facility], were you homeless or living in a detention (including now)? No 12/16/2023 Personal Safety Answer Date Recorded Have you ever been in or are you currently in a harmful physical or emotional relationship or is someone making you feel afraid or unsafe? Denies 12/16/2023 Comments Unknown Sex and Gender Information Value Date Recorded Sex Assigned at Not on file Legal Sex Female 8:22 PM COMPUTER SECURITY MANAGER Gender Identity Female 02/07/2019 1:03 PM CDT Sexual Orientation Not on file Last Filed [...] 12/17/2023 9:50 AM CDT Plan of Treatment Not on file Procedures Procedure Name Priority Date/Time Associated Diagnosis Comments DEXA AXIAL SKELETON BONE DENSITY 1 OR MORE SITES Schedule Routine, Read Routine (OP Routine) 06/30/2021 2:03 PM COMPUTER SECURITY MANAGER Osteopenia of multiple sites from Last 3 Months or Most Recently Relevant to Health Maintenance Results * Dexa Axial Skeleton Bone Density 1 or 2 Site (06/30/2021 2:03 PM COMPUTER SECURITY MANAGER) Anatomical Region Laterality Modality Body N/A Radiographic Lyla ging Narrative 06/30/2021 4:18 PM COMPUTER SECURITY MANAGER Patient Name: Patsy Kerns Date of : 1940 Date of scan: 06/30/2021 Bone mineral density was performed on a HoloWish Discovery Densitometer. Based on machine cross-calibration and [...] by the International Society of Clinical Densitometry. [id number] Joaquín Oglesby MD IMG DXA PROCEDURES Final Result from Last 3 Months or Most Recently Relevant to Health Maintenance Insurance T MEDICARE MEDICARE [employer] MEDICARE Address: [address] [address] [place] [address] [employer] MEDICARE Advance Directives For more information, please contact: [phone] * Full Code (Latest Code Status on File) Date Activated Date Inactivated Comments 12/16/2023 12:17 PM 12/21/2023 9:33 PM Care Teams Drywall Carrier Relationship Specialty Start Date End Date Harish Ewdards MD [address] [place] [address] PCP - General Family Medicine 12/16/23 Theresa Brandon MD [address] [place] [address] Medical Oncologist/Director Of Exhibits Hematology 06/21/20
--- OUTSIDE RECORDS SUMMARY | 2024-06-23 10:25 | XMS_ITS | Encounter Summary ---
Author Organization [facility] DigitalAdvisor of [facility] Address [address] [place] [address] Phone Care Team Providers Care Safety Deposit Boxes Custodian Name Role Phone Romeo Lemus MD Primary Care Provider + Theresa Brandon MD Unavailable [phone] Harish Edwards MD Primary Care Provider [phone] Encounter Details Date Type Department Care Team (Latest Contact Info) Description 04/24/2020 Orders Only [facility] Scanning, Provider Social History Tobacco Use Types Packs/Day Years Used Date Smoking Tobacco: Never Smokeless Tobacco: Never Comments Unknown Sex and Gender Information Value Date Recorded Sex Assigned at Not on file Legal Sex Female 8:22 PM VENDING STAND SUPERVISOR Gender Identity Female 02/07/2019 1:03 PM CDT Sexual Orientation Not on file documented as of this encounter Plan of Treatment Not on file documented as of this encounter Procedures Procedure Name Priority Date/Time Associated Diagnosis Comments SCAN - RADIOLOGY/IMAGING 04/24/2020 documented in this encounter Results * SCAN - RADIOLOGY/IMAGING (04/24/2020) Anatomical Region Laterality Modality Other us Provider Scanning Final Result documented in this encounter Visit Diagnoses Not on filedocumented in this encounter Additional Health Concerns Infection Onset Date Last Indicated Resolved Time COVID19 2023 2023 12/31/2023 3:05 AM CDT COVID: Recovered Comment:Added based on recent COVID infection. 12/31/2023 12/31/2023 03/30/2024 3:[address] documented as of this encounter Care Teams Safety Deposit Boxes Custodian Relationship Specialty Start Date End Date Romeo Lemus MD PCP - General Internal Medicine 06/23/19 12/15/23 Harish Edwards MD [address] [address] PCP - General Family Medicine 12/16/23 Theresa Brandon MD [address] [place] [address] Medical Oncologist/Brown Stock Washer Hematology 06/21/20 documented as of this encounter
[2024-06-24 06:13] LABS: GGT 15 U/L (3-65)
== END 2024-06-23 09:42 | disposition home or self-care (01) ==
PROVIDERS: PCP Family Medicine; Visit Provider Nurse Practitioner Adult Health
DX: R74.8 Abnormal levels of other serum enzymes (principal); E87.1 Hypo-osmolality and hyponatremia
CPT/HCPCS: 36415; 80053; 82150; 82977; 83690

== ENCOUNTER 2024-07-07 09:30 | Outpatient (CLI) | payer MEDICARE, SELFPAY ==
[2024-07-07 10:12] LABS: Anion Gap 7 mmol/L (4-12); Blood Urea Nitrogen 16 mg/dL (7-17); Calcium 9.6 mg/dL (8.4-10.2); Carbon Dioxide 31 mmol/L (22-30); Chloride 101 mmol/L (98-107); Estimated Glomerular Filt Rate 59; Glucose 104 mg/dL (65-110); Potassium 4.5 mmol/L (3.4-5.0); Sodium 139 mmol/L (137-145)
[2024-07-07 10:49] LABS: Hepatitis B Surface Antigen Negative (Negative)
[2024-07-07 10:54] LABS: HAV RESULT Negative (Negative); Hepatitis B Core IgM Result Negative (Negative)
[2024-07-07 11:06] LABS: Hepatitis C Virus Antibody Negative (Negative)
== END 2024-07-07 09:31 | disposition home or self-care (01) ==
LOC: ANHLAB 09:31
PROVIDERS: PCP Nurse Practitioner Adult Health; Visit Provider Nurse Practitioner Adult Health
DX: R74.01 Elevation of levels of liver transaminase levels (principal); E87.1 Hypo-osmolality and hyponatremia
CPT/HCPCS: 36415; 80048; 80074

== ENCOUNTER 2024-07-14 08:55 | Outpatient (CLI) | payer MEDICARE, SELFPAY ==
[2024-07-14 09:23] LABS: Basophils Percent Auto 0.5 % (0.2-1.2); Eosinophils Absolute Auto 0.1 K/mm3 (0-0.3); Eosinophils Percent Auto 1.1 % (0-4.4); Hematocrit 35.9 % (37.0-47.0); Hemoglobin 11.9 g/dL (12.0-15.0); Immature Granulocyte Absolute 0.01 K/mm3 (0.00-0.031); Immature Granulocyte Percent A 0.2 % (0-0.5); Lymphocytes Absolute Auto 0.65 K/mm3 (0.9-3.2); Lymphocytes Percent Auto 14.7 % (18.3-44.2); Mean Corpuscular HGB Conc 33.1 g/dl (32-36); Mean Corpuscular Hemoglobin 31.5 pg (26-34); Mean Platelet Volume 8.8 fl (7.4-10.4); Monocytes Absolute Auto 0.5 K/mm3 (0.1-0.6); Neutrophils Absolute Auto 3.2 K/mm3 (1.3-6.7); Neutrophils Percent Auto 71.5 % (45.5-73.1); Platelet Count Result 238 k/mm3 (150-375); Red Blood Count 3.78 M/mm3 (4.2-5.4); Red Cell Distribution Width 12.6 % (11.5-14.5); White Blood Count 4.4 K/mm3 (4.5-10.0)
[2024-07-14 09:51] LABS: Erythrocyte Sedimentation Rate 16 mm/hr (0-20)
[2024-07-14 09:55] LABS: Alanine Aminotransferase 23 U/L (6-35); Albumin Level 3.9 g/dL (3.5-5.1); Alkaline Phosphatase 44 U/L (38-126); Anion Gap 7 mmol/L (4-12); Aspartate Amino Transferase 30 U/L (14-36); Bilirubin,Total 0.6 mg/dL (0.2-1.3); Blood Urea Nitrogen 15 mg/dL (7-17); CRP 2.9 mg/dL (<1.0); Calcium 9.1 mg/dL (8.4-10.2); Carbon Dioxide 28 mmol/L (22-30); Chloride 101 mmol/L (98-107); Estimated Glomerular Filt Rate > 60; Glucose 101 mg/dL (65-110); Phosphorus 3.3 mg/dL (2.5-4.5); Potassium 4.7 mmol/L (3.4-5.0); Sodium 136 mmol/L (137-145)
[2024-07-14 10:19] LABS: Add Urine Microscopic? NO; Appearance Urine Clear (Clear); Bilirubin Urine Negative (Negative); Blood Urine Negative (Negative); Color Urine Yellow (Yellow); Glucose Urine UA Negative (Negative); Ketones Urine Negative (Negative); Leukocyte Esterase Ur Negative LEU/UL (Negative); Nitrate Urine Negative (Negative); Protein Urine Negative (Negative); Urobilinogen Urine 0.2 mg/dL (<2.0); pH Urine 7.5 (5.0-9.0)
== END 2024-07-14 08:56 | disposition home or self-care (01) ==
LOC: ANHLAB 09:03
PROVIDERS: PCP Nurse Practitioner Adult Health; Visit Provider Internal Medicine
DX: M06.89 Other specified rheumatoid arthritis, multiple sites (principal)
CPT/HCPCS: 36415; 80053; 81003; 84100; 85025; 85652; 86140

== ENCOUNTER 2024-09-05 09:57 | Outpatient (CLI) | payer MEDICARE, SELFPAY ==
[2024-09-05 10:35] LABS: Add Urine Microscopic? NO; Appearance Urine Clear (Clear); Bilirubin Urine Negative (Negative); Blood Urine Negative (Negative); Color Urine Yellow (Yellow); Glucose Urine UA Negative (Negative); Ketones Urine Negative (Negative); Leukocyte Esterase Ur Negative LEU/UL (Negative); Nitrate Urine Negative (Negative); Protein Urine Negative (Negative); Specific Grav Ur 1.015 (1.001-1.035); Urobilinogen Urine 0.2 mg/dL (<2.0)
[2024-09-05 10:50] LABS: Alanine Aminotransferase 23 U/L (6-35); Albumin Level 4.1 g/dL (3.5-5.1); Alkaline Phosphatase 51 U/L (38-126); Anion Gap 7 mmol/L (4-12); Aspartate Amino Transferase 33 U/L (14-36); Bilirubin,Total 0.5 mg/dL (0.2-1.3); Blood Urea Nitrogen 17 mg/dL (7-17); CRP < 0.5 mg/dL (<1.0); Calcium 9.2 mg/dL (8.4-10.2); Carbon Dioxide 28 mmol/L (22-30); Chloride 100 mmol/L (98-107); Estimated Glomerular Filt Rate 51; Glucose 106 mg/dL (65-110); Phosphorus 3.7 mg/dL (2.5-4.5); Potassium 4.7 mmol/L (3.4-5.0); Sodium 135 mmol/L (137-145)
[2024-09-05 11:02] LABS: Erythrocyte Sedimentation Rate 46 mm/hr (0-20)
--- OUTSIDE RECORDS SUMMARY | 2024-09-05 11:16 | XMS_ITS | Clinical Summary ---
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 ([facility]/HCC HHS/HCC) 05/25/2016 Other terminal manager (current) drug therapy 7 Multiple thyroid nodules 12/09/2015 Overview (03/08/2019): Transitioned From: Thyroid nodule Hepatic cyst 10/08/2015 Medication management 07/23/2015 Overview (03/08/2019): Transitioned From: intermediate teacher use of drug Osteoporosis 07/25/2014 Strabismus 01/18/2014 Resolved Problems Problem Noted Date Diagnosed Date Resolved Date Elevated blood pressure read ing without diagnosis of hypertension 01/18/2014 04/18/2020 Immunizations Immunization Administration Dates Next Due Fluzone High Dose [...] Master's degree (e.g., MA, MS, Benji, MEd, WRAPPER CASHIER, STERLING) 03/08/2019 Comments No Sex and Gender Information Value Date Recorded Sex Assigned at Female 03/08/2019 8:01 AM CDT Legal Sex Female 7:01 PM CDT Gender Identity Female 03/08/2019 8:01 AM CDT Sexual Orientation Straight 03/08/2019 8: 01 AM CDT Last Filed Vital Signs Vital Sign Reading Time Taken Comments Blood Pressure 126/70 05/21/2021 1:07 PM TRAILER TECHNICIAN Pulse 88 04/16/2021 1:55 PM TRAILER TECHNICIAN Temperature 36.9 C (98.5 F) 04/16/2021 10:53 AM TRAILER TECHNICIAN Respiratory Rate 20 04/16/2021 1:55 PM TRAILER TECHNICIAN Oxygen Saturation 99% 04/16/2021 10:53 AM TRAILER TECHNICIAN Inhaled Oxygen Concentration - - Weight 54 kg (119 lb) 05/21/2021 1:07 PM TRAILER TECHNICIAN Height 165.1 cm (5' 5 ) 05/21/2021 1:07 PM TRAILER TECHNICIAN Body Mass Index 19.8 05/21/2021 1:07 PM TRAILER TECHNICIAN Plan of Treatment Health Maintenance Due Date Last Done Comments Annual Medicare Wellness Visit 12/16/2007 Pneumococcal Vaccine: 50+ Years (2 of 2 - PPSV23) 05/29/2016 05/29/2015 RSV Immunization or 60+ Years (1 - 1-dose 75+ series) 2017 COVID-19 Vaccine (3 - 2023-2 5 season) 2024 07/04/2020, 06/13/2020 DTaP, Tdap and Td Vaccines ( 3 - Td or Tdap) 10/29/2027 10/28/2017, 12/24/2012 Zoster Vaccines Completed 08/25/2018, 04/29/2018 Dexa Scan (General) Completed 02/12/2020, 02/07/2019 Meningococcal B Vaccine Aged Out No l onger eligible based on patient's age to complete this topic Meningococcal Vaccine Aged Out No vikash sabra eligible based on patient's age to complete this topic RSV Immunizations Under 20 Months Aged Out No longer eligible b ased on patient's age to complete this topic Insurance MED [facility] MEDICARE Advance Directives Documents on File Type Date Recorded Patient Card Maker Expl anation Advance Directives and Living Will 07/19/2019 2:39 PM POLST - ATTEMPT - 07/07/19 Advance Directives and Living Will 11/22/2017 [employer]VANCE DIRECTIVES Care Teams Air Transportation Provider Relationship Specialty Start Date End Date Romeo Lemus MD PCP - General INTERNAL MEDICINE 12/07/18 Adolfo Young MD [address] [place] [address] Consulting Physician RHEUMATOLOGY 03/08/19 Joaquín Oglesby MD [address] [address] [address] [place] [address] Consulting Physician ENDOCRINOLOGY 04/18/20
--- OUTSIDE RECORDS SUMMARY | 2024-09-05 11:16 | XMS_ITS | Clinical Summary ---
Author Organization [facility] [employer] [facility] Address [address] [place] [address] Care Team Providers Care Social Insurance Analyst Name Role Phone Harish Edwards MD Primary Care Provider [phone] Allergies Active Allergy Reactions Criticality Noted Date Comments Leflunomide Hives,Rash,Unknown High 04/01/2012 Medications calcium carbonate/vitami n D3 (CALCIUM WITH VITAMIN D ORAL) Take by mouth. Active amLODIPine (NORVASC) 5 mg tablet Take 1 Tablet by mouth daily. 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 Encounters Date Type Department Care Team Description 08/11/2024 10:30 AM CDT Office Visit [facility] Oncology and Hematology - [address] [place] [address] Daniel Brizuela MD MGUS (monoclonal gammopathy of unknown significance) (Primary Dx) 08/09/2024 Orders Only [facility] Oncology and Hematology - [address] [facility] [place] [address] Daniel Brizuela MD 08/08/2024 Orders Only [facility] Oncology and Hematology - [address] [place] [address] Daniel Brizuela MD 07/05/2024 External Device Data STL ABSTRACTION Provider, Abstract 06/14/2024 External Device Data STL ABSTRACTION Provider, Abstract 06/08/2024 External Device Data STL ABSTRACTION Provider, Abstract from Last 3 Months Family History Medical History Relation Name Comments Heart Disease Father Relation Name Status Comments Father Mother Social History Tobacco Use Types Packs/Day Years Used Date Smoking Tobacco: Never Tobacco Cessation:Counseling Given: Not Answered Alcohol Use Standard Drinks/Week Comments Yes 0 (1 standard drink = 0.6 oz pur e alcohol) Comments Unknown Sex and Gender Information Value Date Recorded Sex Assigned at Not on file Legal Sex Female 3:43 PM CDT Gender Identity Not on file Sexual Orientation Not on file Last Filed Vital Signs Vital Sign Reading Time Taken Comments Blood Pressure 113/71 08/11/2024 10:27 AM CDT Pulse 78 08/11/2024 10:27 AM CDT Temperature 36.6 C (97.8 F) 08/11/2024 10:27 AM CDT Respiratory Rate 15 08/11/2024 10:2 7 AM CDT Oxygen Saturation 99% 08/11/2024 10: 27 AM CDT Inhaled Oxygen Concentration - - Weight 54.3 kg (119 lb 12.8 oz) 025 10:27 AM CDT Height 165.1 cm (5' 5 ) 11/28/2021 2:08 PM CDT Body Mass Index 19.94 11/28/2021 2:08 PM CDT Plan of Treatment Upcoming Encounters Date Type Department Care Team (Late st Contact Info) Description 08/10/2025 10:00 AM CDT Office Visit [facility] Oncology and Hematology - [address] [facility] [address] [place] [address] Daniel Brizuela MD [address] [facility] [address] [place] [address] Health Maintenance Due Date Last Done Comments PNEUMOCOCCAL VACCINE 50+ YEA RS (2 of 2 - PPSV23) 05/29/2016 05/29/2015 RSV VACCINE (60+ or ) (1 - 1-dose 75+ series) 2017 INFLUENZA VACCINE (#1) 2023 0, 03/08/2019, 03/08/2019, Additional history exists OSTEOPOROSIS SCREENING 06/30/2026 2, 06/30/2021, 02/12/2020, Additional history exists DTAP/TDAP/TD VACCINES (3 - T d or Tdap) 10/29/2027 10/28/2017, 12/24/2012 ZOSTER VACCINE Completed 08/25/2018, 04/29/2018 Procedures Procedure Name Priority Date/Time Associated Diagnosis Comments KAPPA/LAMBDA LIGHT CHAINS Routine 2024 3:15 PM CDT PROTEIN ELECTROPHORESIS, CSF Routine 08/07/2024 2:14 PM CDT COMPREHENSIVE METABOLIC PANEL Routine 08/07/2024 1:28 PM CDT CBC WITH DIFFERENTIAL Routine 08/07/2024 11:27 AM CDT from Last 3 Months Results * KAPPA/LAMBDA, FREE LIGHT CHAINS (08/07/2024 3:15 PM CDT) Blood us Daniel Brizuela MD CHEMISTRY ORDERABLES Final Resu lt * PROTEIN ELECTROPHORESIS, CSF (08/07/2024 2:14 PM CDT) Cerebrospinal fluid CEREBROSPINAL FLUID / Unknown us Daniel Brizuela MD BODY FLUIDS AND STOOLS Final Re sult * COMPREHENSIVE METABOLIC PANEL (08/07/2024 1:28 PM CDT) Blood us Danile Brizuela MD CHEMISTRY ORDERABLES Final Resu lt * CBC WITH DIFFERENTIAL (08/07/2024 11:27 AM CDT) Blood us Daniel Brizuela MD HEMATOLOGY ORDERABLES Final Res ult from Last 3 Months Insurance [employer] PPO MCR Care Teams Social Insurance Analyst Relationship Specialty Start Date End Date Harish Edwards MD [address] [place] [address] PCP - General Family Practice 11/28/21
--- OUTSIDE RECORDS SUMMARY | 2024-09-05 11:16 | XMS_ITS ---
Author Name Romeo Lemus Address [address] [place] [address] Phone [phone] Organization [email or web address] [facility] ices Address [address] [place] [address] Phone [phone] Care Team Providers Care Hadoop Analyst Name Role Phone Romeo Lemus Unavailable [phone] Functional Status No Results Mental Status No Results Allergies and Intolerances Name Onset Date Reaction Severity leflunomide (Allergy) WedDec 20 19:15:00 EDT 20 24 Encounters Program Name Primary Diagnosis Admission Date/Time Dis charge Date/Time Assisted Care Facility [facility] Unit WedDec 20 14:01:00 EDT 2023Jan 04 09:13:00 EDT 2023 null WedSeptember 21 07:00 :00 EDT 2019 Medications Medication Directions Start Date End Date lisinopriL 20 mg tablet 1 tablet TABLET Oral 1 Time Daily Indication: Hypertension WedJan 02 10:50:00 EDT 2023Jan 04 01:00:00 EDT 2023 cyclobenzaprine 5 mg tablet 1 tab TABLET Oral PRN 3 Times Daily for 14 Days Indication: muscle spasms WedDec 28 14:00:00 EDT 2023Jan 04 01:00:00 EDT 2023 acetaminophen 500 mg tablet 2 tab TABLET Oral 3 Times Daily Indication: pain *DO NOT EXCEED 3GM/DAY TOTAL FROM ALL APAP SOURCES* WedDec 28 15:15:00 EDT 2023Jan 04 01:00:00 EDT 2023 naproxen 250 mg tablet 2 tablets TABLET Oral PRN 2 Times Daily Indication: Pain WedDec 28 15:17:00 EDT 2023Jan 04 01:00:00 EDT 2023 lisinopriL 10 mg tablet 1 tab TABLET Ora l 1 Time Daily Indication: HTN WedDec 26 12:33:00 EDT 2023Jan 02 11:00:00 EDT 2023 Rinvoq 15 mg tablet,extended release 1 tab TABLET, EXTENDED RELEASE 24 HR Oral 1 Time Daily Indication: RA Pt has home supply in [employer] WedDec 21 11:56:00 EDT 2023Jan 04 01:00:00 EDT 2023 acetaminophen 500 mg tablet 2 tab TABLET Oral PRN Every 6 Hours Indication: pain *DO NOT EXCEED 3GM/DAY TOTAL FROM ALL APAP SOURCES* WedDec 21 15:21:00 EDT 2023Dec 28 15:19:00 EDT 2023 acetaminophen 500 mg tablet 2 tab TABLET Oral PRN Every 6 Hours Indication: pain WedDec 20 19:00:00 EDT 2023Dec 21 15:22:00 EDT 2023 Oyster Shell Calcium-Vitamin D3 500 mg-10 mcg (400 unit) tablet 1 tab TABLET Oral 1 Time Daily Indication: supplement WedDec 21 02:00:00 EDT 2023Jan 04 01:00:00 EDT 2023 cyclobenzaprine 5 mg tablet 1 tab TABLET Oral PRN 3 Times Daily Indication: muscle spasms WedDec 20 19:30:00 EDT 2023Dec 28 14:30:00 EDT 2023 guaiFENesin 100 mg/5 mL oral liquid 10 ml LIQUID (ML) Oral PRN 3 Times Daily Indication: cough WedDec 20 20:00:00 EDT 2023Jan 04 01:00:00 EDT 2023 polyethylene glycoL 3350 17 gram/dose oral powder 17 grams POWDER (GRAM) Oral 1 Time Daily Indication: constipation WedDec 21 09:00:00 EDT 2023Jan 04 01:00:00 EDT 2023 Stimulant Laxative Plus 8.6 mg-50 mg tablet 1 tab TABLET Oral 2 Times Daily Indication: constipation WedDec 21 03:30:00 EDT 2023Jan 04 01:00:00 EDT 2023 TubersoL 5 tub. unit/0.1 mL intradermal injection solution 0.1 ml VIAL (ML) Intradermal 1 Time Weekly for 2 Weeks Indication: TB test 1st injection on admission, then one week after. Read between 48 and 72 hours WedDec 21 02:00:00 EDT 2023Jan 04 01:00:00 EDT 2023 TubersoL 5 tub. unit/0.1 mL intradermal injection solution Read Results VIAL (ML) Other 1 Time Weekly for 2 Weeks Indication: TB test Read results between 48-72 hours after 1st and 2nd (1 week apart). If positive do chest x-ray. WedDec 21 02:00:00 EDT 2023Jan 04 01:00:00 EDT 2023 Problems Active Concerns * Multiple fractures of ribs, left side, subsequent encounter for fracture with routine healing* Code: * Start Date: WedDec 20 00:00:00 EDT 2023 * End Date: * Text: * Fracture of other specified skull and facial bones, left side, subsequent encounter for fracture with routine healing* Code: * Start Date: WedDec 20 00:00:00 EDT 2023 * End Date: * Text: * Other specified disorders of brain* Code: * Start Date: WedDec 20 00:00:00 EDT 2023 * End Date: * Text: * Unspecified injury of muscle(s) and tendon(s) of the rotator cuff of left shoulder, subsequent encounter* Code: * Start Date: WedDec 20 00:00:00 EDT 2023 * End Date: * Text: * Displaced fracture of acromial process, left shoulder, subsequent encounter for fracture with routine healing* Code: * Start Date: WedDec 20 00:00:00 EDT 2023 * End Date: * Text: * COVID-19* Code: * Start Date: WedDec 20 00:00:00 EDT 2023 * End Date: * Text: * Rheumatoid arthritis, unspecified* Code: * Start Date: WedDec 20 00:00:00 EDT 2023 * End Date: * Text: * Fall from other furniture, subsequent encounter* Code: * Start Date: WedDec 20 00:00:00 EDT 2023 * End Date: * Text: * Displaced fracture of lateral end of left clavicle, subsequent encounter for fracture with routine healing* Code: * Start Date: WedDec 20 00:00:00 EDT 2023 * End Date: * Text: * Other specified disorders of middle ear and mastoid, bilateral* Code: * Start Date: WedDec 20 00:00:00 EDT 2023 * End Date: * Text: * alf (current) use of Janus kinase inhibitor* Code: * Start Date: WedDec 20 00:00:00 EDT 2023 * End Date: * Text: * Essential (primary) hypertension* Code: * Start Date: WedDec 20 00:00:00 EDT 2023 * End Date: * Text: Resolved Concerns * Problem Fracture of unspecified part of left clavicle, subsequent encounter for fracture with routine healing* Code: * Start Date: WedDec 20 00:00:00 EDT 2023 * End Date: WedDec 22 00:00:00 EDT 2023 Vital Signs Vital Sign Measurement Date Body weight 122.00 [lb_av] WedJan 04 11:04 :31 EDT 2023 Systolic Blood Pressure 151.00 mm[Hg] WedJan 04 08:56:28 EDT 2023 Diastolic Blood Pressure 77.00 mm[Hg] WedJan 04 08:56:28 EDT 2023 Systolic Blood Pressure 151.00 mm[Hg] WedJan 04 08:41:55 EDT 2023 Diastolic Blood Pressure 77.00 mm[Hg] WedJan 04 08:41:55 EDT 2023 Heart Rate 62.00 /min WedJan 04 08:41 :55 EDT 2023 Body temperature 97.60 [degF] WedJan 04 08:4 1:55 EDT 2023 Respiratory rate 18.00 /min WedJan 04 08:4 1:55 EDT 2023 Systolic Blood Pressure 150.00 mm[Hg] WedJan 03 19:59:38 EDT 2023 Diastolic Blood Pressure 74.00 mm[Hg] WedJan 03 19:59:38 EDT 2023 Heart Rate 68.00 /min WedJan 03 19:59 :38 EDT 2023 Body temperature 98.00 [degF] WedJan 03 19:5 9:38 EDT 2023 Respiratory rate 16.00 /min WedJan 03 19:5 9:38 EDT 2023 Body weight 122.00 [lb_av] WedJan 03 13:58 :55 EDT 2023 Systolic Blood Pressure 149.00 mm[Hg] WedJan 03 09:30:34 EDT 2023 Diastolic Blood Pressure 71.00 mm[Hg] WedJan 03 09:30:34 EDT 2023 Systolic Blood Pressure 149.00 mm[Hg] WedJan 03 08:43:05 EDT 2023 Diastolic Blood Pressure 71.00 mm[Hg] WedJan 03 08:43:05 EDT 2023 Heart Rate 67.00 /min WedJan 03 08:43 :05 EDT 2023 Body temperature 98.00 [degF] WedJan 03 08:4 3:05 EDT 2023 Respiratory rate 18.00 /min WedJan 03 08:4 3:05 EDT 2023 Systolic Blood Pressure 127.00 mm[Hg] WedJan 03 00:27:08 EDT 2023 Diastolic Blood Pressure 64.00 mm[Hg] WedJan 03 00:27:08 EDT 2023 Heart Rate 70.00 /min WedJan 03 00:27 :08 EDT 2023 Body temperature 97.50 [degF] WedJan 03 00:2 7:08 EDT 2023 Respiratory rate 18.00 /min WedJan 03 00:2 7:08 EDT 2023 Body weight 122.20 [lb_av] WedJan 02 13:54 :57 EDT 2023 Systolic Blood Pressure 162.00 mm[Hg] WedJan 02 11:22:22 EDT 2023 Diastolic Blood Pressure 85.00 mm[Hg] WedJan 02 11:22:22 EDT 2023 Heart Rate 74.00 /min WedJan 02 11:22 :22 EDT 2023 Body temperature 96.70 [degF] WedJan 02 11:2 2:22 EDT 2023 Respiratory rate 18.00 /min WedJan 02 11:2 2:22 EDT 2023 Systolic Blood Pressure 162.00 mm[Hg] WedJan 02 08:46:02 EDT 2023 Diastolic Blood Pressure 85.00 mm[Hg] WedJan 02 08:46:02 EDT 2023 Systolic Blood Pressure 146.00 mm[Hg] [place] Jan 01 23:49:03 EDT 2023 Diastolic Blood Pressure 70.00 mm[Hg] [place] Jan 01 23:49:03 EDT 2023 Heart Rate 66.00 /min [place] Jan 01 23:49 :03 EDT 2023 Body temperature 97.80 [degF] [place] Jan 01 23:4 9:03 EDT 2023 Respiratory rate 16.00 /min [place] Jan 01 23:4 9:03 EDT 2023 Body weight 118.00 [lb_av] [place] Jan 01 10:57 :23 EDT 2023 Systolic Blood Pressure 172.00 mm[Hg] [place] Jan 01 09:16:31 EDT 2023 Diastolic Blood Pressure 72.00 mm[Hg] [place] Jan 01 09:16:31 EDT 2023 Heart Rate 63.00 /min [place] Jan 01 09:16 :31 EDT 2023 Body temperature 97.70 [degF] [place] Jan 01 09:1 6:31 EDT 2023 Respiratory rate 18.00 /min [place] Jan 01 09:1 6:31 EDT 2023 Systolic Blood Pressure 142.00 mm[Hg] [place] Jan 01 09:14:49 EDT 2023 Diastolic Blood Pressure 73.00 mm[Hg] [place] Jan 01 09:14:49 EDT 2023 Systolic Blood Pressure 154.00 mm[Hg] [facility] Dec 31 22:43:17 EDT 2023 Diastolic Blood Pressure 80.00 mm[Hg] [facility] Dec 31 22:43:17 EDT 2023 Heart Rate 65.00 /min [facility] Dec 31 22:43 :17 EDT 2023 Body temperature 97.70 [degF] [facility] Dec 31 22:4 3:17 EDT 2023 Respiratory rate 18.00 /min [facility] Dec 31 22:4 3:17 EDT 2023 Systolic Blood Pressure 140.00 mm[Hg] [facility] Dec 31 21:36:52 EDT 2023 Diastolic Blood Pressure 74.00 mm[Hg] [facility] Dec 31 21:36:52 EDT 2023 Heart Rate 63.00 /min [facility] Dec 31 21:36 :52 EDT 2023 Pulse Oximetry 99.00 % [facility] Dec 31 21:36 :52 EDT 2023 Body weight 119.80 [lb_av] [facility] Dec 31 11:24 :49 EDT 2023 Systolic Blood Pressure 143.00 mm[Hg] [facility] Dec 31 09:07:20 EDT 2023 Diastolic Blood Pressure 71.00 mm[Hg] [facility] Aug 17 09:07:20 EDT 2023 Systolic Blood Pressure 143.00 mm[Hg] [facility] Dec 31 08:32:19 EDT 2023 Diastolic Blood Pressure 71.00 mm[Hg] [facility] Dec 31 08:32:19 EDT 2023 Heart Rate 68.00 /min [facility] Dec 31 08:32 :19 EDT 2023 Body temperature 98.00 [degF] [facility] Dec 31 08:3 2:19 EDT 2023 Respiratory rate 17.00 /min [facility] Dec 31 08:3 2:19 EDT 2023 Systolic Blood Pressure 103.00 mm[Hg] WedDec 30 23:34:59 EDT 2023 Diastolic Blood Pressure 52.00 mm[Hg] WedDec 30 23:34:59 EDT 2023 Heart Rate 60.00 /min WedDec 30 23:34 :59 EDT 2023 Body temperature 97.50 [degF] WedDec 30 23:3 4:59 EDT 2023 Respiratory rate 18.00 /min WedDec 30 23:3 4:59 EDT 2023 Systolic Blood Pressure 166.00 mm[Hg] WedDec 30 09:52:24 EDT 2023 Diastolic Blood Pressure 93.00 mm[Hg] WedDec 30 09:52:24 EDT 2023 Systolic Blood Pressure 166.00 mm[Hg] WedDec 30 09:52:24 EDT 2023 Diastolic Blood Pressure 93.00 mm[Hg] WedDec 30 09:52:24 EDT 2023 Body weight 121.20 [lb_av] WedDec 30 09:52 :24 EDT 2023 Heart Rate 60.00 /min WedDec 30 09:52 :24 EDT 2023 Body temperature 98.20 [degF] WedDec 30 09:5 2:24 EDT 2023 Respiratory rate 18.00 /min WedDec 30 09:5 2:24 EDT 2023 Systolic Blood Pressure 122.00 mm[Hg] WedDec 29 22:53:33 EDT 2023 Diastolic Blood Pressure 62.00 mm[Hg] WedDec 29 22:53:33 EDT 2023 Heart Rate 78.00 /min WedDec 29 22:53 :33 EDT 2023 Body temperature 98.20 [degF] [place] Dec 29 22:5 3:33 EDT 2023 Respiratory rate 16.00 /min [place] Dec 29 22:5 3:33 EDT 2024 Systolic Blood Pressure 143.00 mm[Hg] [place] Dec 29 14:06:46 EDT 2023 Diastolic Blood Pressure 75.00 mm[Hg] [place] Dec 29 14:06:46 EDT 2023 Respiratory rate 18.00 /min [place] Dec 29 14:0 6:46 EDT 2023 Body weight 121.20 [lb_av] [place] Dec 29 13:18 :11 EDT 2023 Systolic Blood Pressure 170.00 mm[Hg] [place] Dec 29 09:09:58 EDT 2023 Diastolic Blood Pressure 83.00 mm[Hg] [place] Dec 29 09:09:58 EDT 2023 Systolic Blood Pressure 170.00 mm[Hg] [place] Dec 29 09:09:58 EDT 2023 Diastolic Blood Pressure 83.00 mm[Hg] [place] Dec 29 09:09:58 EDT 2023 Heart Rate 75.00 /min [facility] Dec 29 09:09 :58 EDT 2023 Body temperature 97.70 [degF] [facility] Dec 29 09:0 9:58 EDT 2023 Respiratory rate 18.00 /min [facility] Dec 29 09:0 9:58 EDT 2023 Systolic Blood Pressure 124.00 mm[Hg] WedDec 28 20:35:17 EDT 2023 Diastolic Blood Pressure 67.00 mm[Hg] WedDec 28 20:35:17 EDT 2023 Heart Rate 78.00 /min WedDec 28 20:35 :17 EDT 2023 Body temperature 98.70 [degF] WedDec 28 20:3 5:17 EDT 2023 Respiratory rate 20.00 /min WedDec 28 20:3 5:17 EDT 2023 Body weight 120.60 [lb_av] WedDec 28 18:10 :49 EDT 2023 Systolic Blood Pressure 148.00 mm[Hg] WedDec 28 09:28:15 EDT 2023 Diastolic Blood Pressure 75.00 mm[Hg] WedDec 28 09:28:15 EDT 2023 Systolic Blood Pressure 148.00 mm[Hg] WedDec 28 09:28:15 EDT 2023 Diastolic Blood Pressure 75.00 mm[Hg] WedDec 28 09:28:15 EDT 2023 Heart Rate 82.00 /min WedDec 28 09:28 :15 EDT 2023 Body temperature 97.10 [degF] WedDec 28 09:2 8:15 EDT 2023 Respiratory rate 18.00 /min WedDec 28 09:2 8:15 EDT 2023 Systolic Blood Pressure 148.00 mm[Hg] WedDec 28 09:28:04 EDT 2023 Diastolic Blood Pressure 75.00 mm[Hg] WedDec 28 09:28:04 EDT 2023 Heart Rate 82.00 /min WedDec 28 09:28 :04 EDT 2023 Body temperature 97.10 [degF] WedDec 28 09:2 8:04 EDT 2023 Respiratory rate 18.00 /min WedDec 28 09:2 8:04 EDT 2023 Pulse Oximetry 100.00 % WedDec 28 09:28 :04 EDT 2023 Systolic Blood Pressure 111.00 mm[Hg] WedDec 27 20:15:26 EDT 2023 Diastolic Blood Pressure 69.00 mm[Hg] WedDec 27 20:15:26 EDT 2023 Heart Rate 67.00 /min WedDec 27 20:15 :26 EDT 2023 Body temperature 97.70 [degF] WedDec 27 20:1 5:26 EDT 2023 Respiratory rate 18.00 /min WedDec 27 20:1 5:26 EDT 2023 Body weight 118.00 [lb_av] WedDec 27 09:58 :42 EDT 2023 Systolic Blood Pressure 158.00 mm[Hg] WedDec 27 08:38:23 EDT 2023 Diastolic Blood Pressure 76.00 mm[Hg] WedDec 27 08:38:23 EDT 2023 Systolic Blood Pressure 158.00 mm[Hg] WedDec 27 08:38:23 EDT 2023 Diastolic Blood Pressure 76.00 mm[Hg] WedDec 27 08:38:23 EDT 2023 Heart Rate 70.00 /min WedDec 27 08:38 :23 EDT 2023 Body temperature 98.30 [degF] WedDec 27 08:3 8:23 EDT 2023 Respiratory rate 18.00 /min WedDec 27 08:3 8:23 EDT 2023 Systolic Blood Pressure 131.00 mm[Hg] WedDec 26 23:36:59 EDT 2023 Diastolic Blood Pressure 72.00 mm[Hg] WedDec 26 23:36:59 EDT 2023 Heart Rate 72.00 /min WedDec 26 23:36 :59 EDT 2023 Body temperature 98.00 [degF] WedDec 26 23:3 6:59 EDT 2023 Respiratory rate 16.00 /min WedDec 26 23:3 6:59 EDT 2023 Body Height 65.00 [in_i] WedDec 26 13:00 :00 EDT 2023 Body weight 119.00 [lb_av] WedDec 26 09:13 :04 EDT 2023 Systolic Blood Pressure 159.00 mm[Hg] WedDec 26 08:29:36 EDT 2023 Diastolic Blood Pressure 91.00 mm[Hg] WedDec 26 08:29:36 EDT 2023 Heart Rate 67.00 /min WedDec 26 08:29 :36 EDT 2023 Body temperature 97.90 [degF] WedDec 26 08:2 9:36 EDT 2023 Respiratory rate 18.00 /min WedDec 26 08:2 9:36 EDT 2023 Systolic Blood Pressure 158.00 mm[Hg] [place] Dec 25 19:42:06 EDT 2023 Diastolic Blood Pressure 72.00 mm[Hg] [place] Dec 25 19:42:06 EDT 2023 Heart Rate 78.00 /min [place] Dec 25 19:42 :06 EDT 2023 Body temperature 97.90 [degF] [place] Dec 25 19:4 2:06 EDT 2023 Respiratory rate 20.00 /min [place] Dec 25 19:4 2:06 EDT 2023 Systolic Blood Pressure 143.00 mm[Hg] [place] Dec 25 10:12:09 EDT 2023 Diastolic Blood Pressure 86.00 mm[Hg] [place] Dec 25 10:12:09 EDT 2023 Body weight 120.00 [lb_av] [place] Dec 25 10:12 :09 EDT 2023 Heart Rate 84.00 /min [place] Dec 25 10:12 :09 EDT 2023 Body temperature 97.80 [degF] [place] Dec 25 10:1 2:09 EDT 2023 Respiratory rate 18.00 /min [place] Dec 25 10:1 2:09 EDT 2023 Systolic Blood Pressure 150.00 mm[Hg] [facility] Dec 24 23:58:15 EDT 2023 Diastolic Blood Pressure 79.00 mm[Hg] [facility] Dec 24 23:58:15 EDT 2023 Heart Rate 73.00 /min [facility] Dec 24 23:58 :15 EDT 2023 Body temperature 97.70 [degF] [facility] Dec 24 23:5 8:15 EDT 2023 Respiratory rate 18.00 /min [facility] Dec 24 23:5 8:15 EDT 2023 Systolic Blood Pressure 148.00 mm[Hg] [facility] Dec 24 09:37:53 EDT 2023 Diastolic Blood Pressure 81.00 mm[Hg] WedDec 24 09:37:53 EDT 2023 Body weight 118.20 [lb_av] [facility] Dec 24 09:37 :53 EDT 2023 Heart Rate 74.00 /min [facility] Dec 24 09:37 :53 EDT 2023 Body temperature 98.60 [degF] [facility] Dec 24 09:3 7:53 EDT 2023 Respiratory rate 18.00 /min [facility] Dec 24 09:3 7:53 EDT 2023 Systolic Blood Pressure 156.00 mm[Hg] WedDec 23 19:46:44 EDT 2023 Diastolic Blood Pressure 82.00 mm[Hg] WedDec 23 19:46:44 EDT 2023 Heart Rate 68.00 /min WedDec 23 19:46 :44 EDT 2023 Body temperature 98.40 [degF] WedDec 23 19:4 6:44 EDT 2023 Respiratory rate 20.00 /min WedDec 23 19:4 6:44 EDT 2023 Body weight 119.40 [lb_av] WedDec 23 10:55 :23 EDT 2023 Systolic Blood Pressure 147.00 mm[Hg] WedDec 23 10:46:08 EDT 2023 Diastolic Blood Pressure 67.00 mm[Hg] WedDec 23 10:46:08 EDT 2023 Heart Rate 88.00 /min WedDec 23 10:46 :08 EDT 2023 Body temperature 98.90 [degF] WedDec 23 10:4 6:08 EDT 2023 Respiratory rate 18.00 /min WedDec 23 10:4 6:08 EDT 2023 Systolic Blood Pressure 163.00 mm[Hg] WedDec 22 23:54:31 EDT 2023 Diastolic Blood Pressure 83.00 mm[Hg] WedDec 22 23:54:31 EDT 2023 Heart Rate 77.00 /min WedDec 22 23:54 :31 EDT 2023 Body temperature 97.70 [degF] WedDec 22 23:5 4:31 EDT 2023 Respiratory rate 18.00 /min WedDec 22 23:5 4:31 EDT 2023 Body weight 116.80 [lb_av] WedDec 22 12:58 :07 EDT 2023 Systolic Blood Pressure 153.00 mm[Hg] WedDec 22 09:01:40 EDT 2023 Diastolic Blood Pressure 87.00 mm[Hg] WedDec 22 09:01:40 EDT 2023 Heart Rate 75.00 /min WedDec 22 09:01 :40 EDT 2023 Body temperature 98.00 [degF] WedDec 22 09:0 1:40 EDT 2023 Respiratory rate 16.00 /min WedDec 22 09:0 1:40 EDT 2023 Systolic Blood Pressure 144.00 mm[Hg] WedDec 21 19:34:50 EDT 2023 Diastolic Blood Pressure 79.00 mm[Hg] WedDec 21 19:34:50 EDT 2023 Heart Rate 84.00 /min WedDec 21 19:34 :50 EDT 2023 Body temperature 97.80 [degF] WedDec 21 19:3 4:50 EDT 2023 Respiratory rate 16.00 /min WedDec 21 19:3 4:50 EDT 2023 Body weight 117.60 [lb_av] WedDec 21 10:12 :37 EDT 2023 Systolic Blood Pressure 146.00 mm[Hg] WedDec 21 08:38:09 EDT 2023 Diastolic Blood Pressure 87.00 mm[Hg] WedDec 21 08:38:09 EDT 2023 Heart Rate 100.00 /min WedDec 21 08:38 :09 EDT 2023 Body temperature 97.70 [degF] WedDec 21 08:3 8:09 EDT 2023 Respiratory rate 18.00 /min WedDec 21 08:3 8:09 EDT 2023 Systolic Blood Pressure 166.00 mm[Hg] WedDec 20 23:30:00 EDT 2023 Diastolic Blood Pressure 83.00 mm[Hg] WedDec 20 23:30:00 EDT 2023 Heart Rate 74.00 /min WedDec 20 23:30 :00 EDT 2023 Body temperature 97.10 [degF] WedDec 20 23:3 0:00 EDT 2023 Respiratory rate 18.00 /min WedDec 20 23:3 0:00 EDT 2023 Pulse Oximetry 94.00 % WedDec 20 23:30 :00 EDT 2023 Reason for Referral
--- OUTSIDE RECORDS SUMMARY | 2024-09-05 11:16 | XMS_ITS | Clinical Summary ---
Author Organization [facility] Address [address] [place] [address] Care Team Providers Care Catering Assistant Name Role Phone Theresa Brandon MD Unavailable Harish Edwards MD Primary Care Provider [phone] Allergies Active Allergy Reactions Criticality Noted Date [...] LA and RA size. Mild TR and UT. PASP 32 mmHg.Normal LV diastolic function. IVC [...] the appointment. [facility], , after-hours emergency [phone] or Temporal bone fracture 2023 Assessment & Plan (12/21/2023 1:49 PM CDT): #Blood in L EAC #Bilateral mastoid effusions - ENT c/s - Facial nerve intact - hearing intact - ofloxacin gtt BID for 5 days to left EAC for otorrhea - Follow Up: Audiogram and otology as outpatient in 4-6 weeks (call [phone] to schedule this with follow up appt) Acute traumatic pain 2023 Assessment & Plan (12/17/2023 12:46 PM CDT): - Tylenol scheduled - Flexeril PRN - Oxycodone PRN Osteopenia 08/27/2016 Osteoporosis 07/25/2014 Rheumatoid arthritis 07/25/2014 Immunizations Immunization Administration Dates Next Due Influenza, Quad, Adjuvantate [...] Dizziness Tinnitus HL (hearing loss) Autoimmune disease High blood pressure Osteoporosis Family History Medical [...] Date Smoking Tobacco: Never Smokeless Tobacco: Never [employer] Utilities Answer Date Recorded In the past 12 months has th e electric, gas, oil, or water [employer] threatened to shut off services in your [...] often do you attend chur ch or rastafarian services? More than 4 times per year 12/16/2023 Do you belong to any clubs o r organizations such as synagogue groups, unions, fraternal or athletic groups, or [...] and heating? Not hard at all 12/16/2023 [facility] [place] [facility] Occupat ional Health - Occupational Stress [...] any time in the past 12 m [facility], were you homeless or living in a jail (including now)? No 12/16/2023 Personal Safety Answer Date Recorded Have you ever been in or are you currently in a harmful physical or emotional relationship or is someone making you feel afraid or unsafe? Denies 12/16/2023 Comments Unknown Sex and Gender Information Value Date Recorded Sex Assigned at Not on file Legal Sex Female 8:22 PM PATIENT CARE SECRETARY Gender Identity Female 02/07/2019 1:03 PM CDT [...] Pneumococcal vaccine 65+ (2 of 2 - PPSV23) 07/24/2015 05/29/2015 Osteoporosis Screening-Bone Density Scan 06/30/2023 06/30/2021, 02/12/2020, 02/07/2019, Additional history exists Covid-19 Vaccine (3 - 2023-2 5 season) 2024 07/04/2020, 06/13/2020 Fall Risk Assessment 12/20/2024 12/21/2023 Influenza Vaccine (Season Ended) 2025 02/19/2020, 03/08/2019, 03/08/2019, Additional history exists DTaP/Tdap/Td Vaccine (3 - Td or Tdap) 10/29/2027 10/28/2017, 12/24/2012 Zoster Vaccine Completed 08/25/2018, 04/29/2018 Procedures Procedure Name Priority Date/Time Associated Diagnosis Comments DEXA AXIAL SKELETON BONE DENSITY 1 OR MORE SITES Schedule Routine, Read Routine (OP Routine) 06/30/2021 2:03 PM PATIENT CARE SECRETARY Osteopenia of multiple sites from Last 3 Months or Most Recently Relevant to Health Maintenance Results * Dexa Axial Skeleton Bone Density 1 or 2 Site (06/30/2021 2:03 PM PATIENT CARE SECRETARY) Anatomical Region Laterality Modality Body N/A Radiographic Lyla ging Narrative 06/30/2021 4:18 PM PATIENT CARE SECRETARY Patient Name: Patsy Kerns Date of : 1940 Date of scan: 06/30/2021 Bone mineral density was performed on a [employer] Densitometer. Based on machine cross-calibration and [...] by the International Society of Clinical Densitometry. [id number] Joaquín Oglesby MD IMG DXA PROCEDURES Final Result from Last 3 Months or Most Recently Relevant to Health Maintenance Insurance [facility] [employer] [facility] ADVANTAGE [facility] [employer] Advance Directives For more information, please contact: [phone] * Full Code (Latest Code Status on File) Date Activated Date Inactivated Comments 12/16/2023 12:17 PM 12/21/2023 9:33 PM Care Teams Catering Assistant Relationship Specialty Start Date End Date Harish Edwards MD [address] [address] PCP - General Family Medicine 12/16/23 Theresa Brandon MD [facility] [address] [place] [address] Medical Oncologist/Glass Bead Maker Hematology 06/21/20
--- OUTSIDE RECORDS SUMMARY | 2024-09-05 11:17 | XMS_ITS | Clinical Summary ---
Author Organization [facility] Address [address] [place] [address] Care Team Providers Care Stretcher Leveler Operator Helper Name Role Phone Romeo Lemus MD Primary Care Provider [phone] Source Comments [facility],non-owned Affiliates and Associated Physician Practices is amultiple site organization consisting of ambulatory clinics and hospital sitesin [place], [place], [place] and [place]. This disclosure is being madepursuant to the Care Everywhere program and may not contain all information available regarding this patient. Last updated 18.[facility] Allergies Active Allergy Reactions Criticality Noted Date Comments Leflunomide Skin Reactions High 04/01/2012 Medications * Be aware that medications may not be up to date on this document. Alwaysverify current medications with the patient. etanercept (ENBREL) 25 MG/0.5ML prefilled syringe INJECT ONE SYRINGE SUBCUTANEOUSLY TWICE A WEEK. 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 05/25/2016 Encounter for therapeutic drug level monitoring 05/25/2016 Adverse effect of drug or medicament 02/28/2015 Resolved Problems Problem Noted Date Diagnosed Date Resolved Date Other injury of unspecified body region, initial encounter 04/29/2015 02/13/2018 Immunizations Immunization Administration Dates Next Due Adelaide Brennan primary [...] Date Recorded PHQ2 TOTAL SCORE 0 10/29/2020 Comments Unknown Sex and Gender Information Value Date Recorded Sex Assigned at Not on file Legal Sex Female 5:24 PM GREY IRON MOLDER Gender Identity Not on file Sexual Orientation Not on file Last Filed Vital Signs Vital Sign Reading Time Taken Comments Blood Pressure 142/88 07/01/2021 12:14 PM GREY IRON MOLDER Pulse 78 10/29/2020 1:00 PM CDT Temperature 36.8 C (98.2 F) 07/01/2021 12:14 PM GREY IRON MOLDER Respiratory Rate 16 10/29/2020 1:00 PM CDT Oxygen Saturation 98% 10/29/2020 1:00 PM CDT Inhaled Oxygen Concentration - - Weight 53.5 kg (118 lb) 07/01/2021 12:14 PM GREY IRON MOLDER Height 165.1 cm (5' 5 ) 07/01/2021 12:14 PM GREY IRON MOLDER Body Mass Index 19.64 07/01/2021 12:14 PM GREY IRON MOLDER Plan of Treatment Health Maintenance Due Date Last Done Comments BONE DENSITY TESTING 1940 PNEUMOCOCCAL VACCINE 50+ (2 of 2 - PPSV23) 05/29/2016 05/29/2015 Respiratory Syncytial Virus (RSV) Vaccine Pt: or over 60 yrs (1 - 1-dose 75+ series) 2017 COVID-19 VACCINE (3 - season) 2024 07/04/2020, 06/13/2020 DEPRESSION SCREENING 05/17/2024 MEDICARE AWV CALENDAR YEAR 2024 INFLUENZA VACCINE (Season Ended) 2025 02/19/2020, 03/08/2019, 02/22/2018, Additional history exists DTAP/TDAP/TD VACCINES (3 - Td or Tdap) [...] complete this topic MENINGOCOCCAL (Group B) VACCINE SHARED DECISION-MAKING Aged Out No longer eligible based on patient's age to complete this topic MENINGOCOCCAL GROUPS A/C/Y/W VACCINE Aged Out No longer eligible based on patient's age to complete this topic Insurance [facility] MANAGED MEDICARE ADV Care Teams Stretcher Leveler Operator Helper Relationship Specialty Start Date End Date Romeo Lemus MD [address] [place] [address] PCP - General 10/22/14
--- OUTSIDE RECORDS SUMMARY | 2024-09-05 11:17 | XMS_ITS | Encounter Summary ---
Author Organization [facility] Address [address] [place] [address] Phone Care Team Providers Care Batter Mixer Name Role Phone Romeo Lemus MD Primary Care Provider + Theresa Brandon MD Unavailable [phone] Harish Edwards MD Primary Care Provider + [phone] Encounter Details Date Type Department Care Team (Latest Contact Info) Description 04/24/2020 Orders Only [facility] Scanning, Provider Social History Tobacco Use Types Packs/Day Years Used Date Smoking Tobacco: Never Smokeless Tobacco: Never Comments Unknown Sex and Gender Information Value Date Recorded Sex Assigned at Not on file Legal Sex Female 8:22 PM MANAGER OF PHOTOGRAPHY Gender Identity Female 02/07/2019 1:03 PM CDT [...] documented as of this encounter Care Teams Batter Mixer Relationship Specialty Start Date End Date Romeo Lemus MD PCP - General Internal Medicine 06/23/19 12/15/23 Harish Edwards MD [address] [place] [address] PCP - General Family Medicine 12/16/23 Theresa Brandon MD [address] [place] [address] Medical Oncologist/Sectionizer Hematology 06/21/20 documented as of this encounter
--- OUTSIDE RECORDS SUMMARY | 2024-09-05 11:17 | XMS_ITS | Encounter Summary ---
Author Organization [facility] Address [address] [place] [address] Phone Care Team Providers Care Clinical Informatics Educator Name Role Phone Romeo Lemus MD Primary Care Provider + Theresa Brandon MD Unavailable [phone] Harish Edwards MD Primary Care Provider + [phone] Encounter Details Date Type Department Care Team (Latest Contact Info) Description 05/03/2020 Orders Only [facility] Scanning, Provider Social History Tobacco Use Types Packs/Day Years Used Date Smoking Tobacco: Never Smokeless Tobacco: Never Comments Unknown Sex and Gender Information Value Date Recorded Sex Assigned at Not on file Legal Sex Female 8:22 PM CERTIFIED HISTOLOGIC TECHNICIAN Gender Identity Female 02/07/2019 1:03 PM CDT [...] documented as of this encounter Care Teams Clinical Informatics Educator Relationship Specialty Start Date End Date Romeo Lemus MD PCP - General Internal Medicine 06/23/19 12/15/23 Harish Edwards MD [address] [place] [address] [place] [address] PCP - General Family Medicine 12/16/23 Theresa Brandon MD [address] [place] [address] Medical Oncologist/Cutting Table Operator First Hematology 06/21/20 documented as of this encounter
--- OUTSIDE RECORDS SUMMARY | 2024-09-05 11:17 | XMS_ITS ---
Author Name Romeo Lemus Address [address] [place] [address] Phone [phone] Organization [employer] [facility] ices Address [address] [place] [address] Phone [phone] Care Team Providers Care Art Critic Name Role Phone Romeo Lemus Unavailable [phone] Functional Status No Results Mental Status No Results Allergies and Intolerances Name Onset Date Reaction Severity leflunomide (Allergy) WedDec 20 19:15:00 EDT 20 24 Encounters Program Name Primary Diagnosis Admission Date/Time Dis charge Date/Time null WedSeptember 21 07:00 :00 EDT 2019 [facility] WedDec 20 14:01:00 EDT 2023Jan 04 09:13:00 EDT 2023 Medications Medication Directions Start Date End Date [...] Indication: RA Pt has home supply in [employer] WedDec 21 11:56:00 EDT 2023Jan 04 01:00:00 [...] 2023 * End Date: * Text: * long-term (current) use of Janus kinase inhibitor* Code: [...] EDT 2023 Systolic Blood Pressure 146.00 mm[Hg] [facility] Jan 01 23:49:03 EDT 2023 Diastolic Blood Pressure 70.00 mm[Hg] [facility] Jan 01 23:49:03 EDT 2023 Heart Rate 66.00 /min [facility] Jan 01 23:49 :03 EDT 2023 Body temperature 97.80 [degF] [facility] Jan 01 23:4 9:03 EDT 2023 Respiratory rate 16.00 /min [facility] Jan 01 23:4 9:03 EDT 2023 Body weight 118.00 [lb_av] [facility] Jan 01 10:57 :23 EDT 2023 Systolic Blood Pressure 172.00 mm[Hg] [facility] Jan 01 09:16:31 EDT 2023 Diastolic Blood Pressure 72.00 mm[Hg] [facility] Jan 01 09:16:31 EDT 2023 Heart Rate 63.00 /min [facility] Jan 01 09:16 :31 EDT 2023 Body temperature 97.70 [degF] [facility] Jan 01 09:1 6:31 EDT 2023 Respiratory rate 18.00 /min [facility] Jan 01 09:1 6:31 EDT 2023 Systolic Blood Pressure 142.00 mm[Hg] [facility] Jan 01 09:14:49 EDT 2023 Diastolic Blood Pressure 73.00 mm[Hg] [facility] Jan 01 09:14:49 EDT 2023 Systolic Blood Pressure 154.00 mm[Hg] [facility] Dec 31 22:43:17 EDT 2023 Diastolic Blood Pressure 80.00 mm[Hg] [facility] Dec 31 22:43:17 EDT 2023 Heart Rate 65.00 /min [facility] Dec 31 22:43 :17 EDT 2023 Body temperature 97.70 [degF] [facility] Dec 31 22:4 3:17 EDT 2023 Respiratory rate 18.00 /min [facility] Dec 31 22:4 3:17 EDT 2023 Systolic Blood Pressure 140.00 mm[Hg] [facility] Dec 31 21:36:52 EDT 2023 Diastolic Blood Pressure 74.00 mm[Hg] [facility] Dec 31 21:36:52 EDT 2023 Heart Rate 63.00 /min [facility] Dec 31 21:36 :52 EDT 2023 Pulse Oximetry 99.00 % [facility] Dec 31 21:36 :52 EDT 2023 Body weight 119.80 [lb_av] [facility] Dec 31 11:24 :49 EDT 2023 Systolic Blood Pressure 143.00 mm[Hg] [facility] Dec 31 09:07:20 EDT 2023 Diastolic Blood Pressure 71.00 mm[Hg] [facility] Aug 17 09:07:20 EDT 2023 Systolic Blood Pressure 143.00 mm[Hg] [facility] Dec 31 08:32:19 EDT 2023 Diastolic Blood Pressure 71.00 mm[Hg] [facility] Dec 31 08:32:19 EDT 2023 Heart Rate 68.00 /min [facility] Dec 31 08:32 :19 EDT 2023 Body temperature 98.00 [degF] [facility] Dec 31 08:3 2:19 EDT 2023 Respiratory rate 17.00 /min [facility] Dec 31 08:3 2:19 EDT 2023 Systolic [...] EDT 2024 Systolic Blood Pressure 143.00 mm[Hg] [facility] Dec 29 14:06:46 EDT 2023 Diastolic Blood [...] 09:09:58 EDT 2023 Heart Rate 75.00 /min [facility] Dec 29 09:09 :58 EDT 2023 Body temperature 97.70 [degF] [facility] Dec 29 09:0 9:58 EDT 2023 Respiratory rate 18.00 /min [facility] Dec 29 09:0 9:58 EDT 2023 [...] EDT 2023 Systolic Blood Pressure 158.00 mm[Hg] [facility] Dec 25 19:42:06 EDT 2023 Diastolic Blood Pressure 72.00 mm[Hg] [facility] Dec 25 19:42:06 EDT 2023 Heart Rate 78.00 /min [facility] Dec 25 19:42 :06 EDT 2023 Body temperature 97.90 [degF] [facility] Dec 25 19:4 2:06 EDT 2023 Respiratory rate 20.00 /min [facility] Dec 25 19:4 2:06 EDT 2023 Systolic Blood Pressure 143.00 mm[Hg] [facility] Dec 25 10:12:09 EDT 2023 Diastolic Blood Pressure 86.00 mm[Hg] [facility] Dec 25 10:12:09 EDT 2023 Body weight 120.00 [lb_av] [facility] Dec 25 10:12 :09 EDT 2023 Heart Rate 84.00 /min [facility] Dec 25 10:12 :09 EDT 2023 Body temperature 97.80 [degF] [facility] Dec 25 10:1 2:09 EDT 2023 Respiratory rate 18.00 /min [facility] Dec 25 10:1 2:09 EDT 2023 Systolic Blood Pressure 150.00 mm[Hg] [facility] Dec 24 23:58:15 EDT 2023 Diastolic Blood Pressure 79.00 mm[Hg] [facility] Dec 24 23:58:15 EDT 2023 Heart Rate 73.00 /min [facility] Dec 24 23:58 :15 EDT 2023 Body temperature 97.70 [degF] [facility] Dec 24 23:5 8:15 EDT 2023 Respiratory rate 18.00 /min [facility] Dec 24 23:5 8:15 EDT 2023 Systolic Blood Pressure 148.00 mm[Hg] [facility] Dec 24 09:37:53 EDT 2023 Diastolic Blood Pressure 81.00 mm[Hg] WedDec 24 09:37:53 EDT 2023 Body weight 118.20 [lb_av] [facility] Dec 24 09:37 :53 EDT 2023 Heart Rate 74.00 /min [facility] Dec 24 09:37 :53 EDT 2023 Body temperature 98.60 [degF] [facility] Dec 24 09:3 7:53 EDT 2023 Respiratory rate 18.00 /min [facility] Dec 24 09:3 7:53 EDT 2023 Systolic [...]
--- OUTSIDE RECORDS SUMMARY | 2024-09-05 11:17 | XMS_ITS | Referral Summary ---
Author Organization [facility] Address [address] [place] [address] Care Team Providers Care Bow String Maker Name Role Phone Theresa Brandon MD Unavailable Harish Edwards MD Primary Care Provider [phone] Allergies Active Allergy Reactions Criticality Noted Date [...] LA and RA size. Mild TR and NV. PASP 32 mmHg.Normal LV diastolic function. IVC [...] [facility] , after-hours emergency [phone] or Temporal bone fracture 2023 Assessment & Plan (12/21/2023 1:49 PM CDT): #Blood in L EAC #Bilateral mastoid effusions - ENT c/s - Facial nerve intact - hearing intact - ofloxacin gtt BID for 5 days to left EAC for otorrhea - Follow Up: Audiogram and otology as outpatient in 4-6 weeks (call [phone] to schedule this with follow up appt) [...] Date Smoking Tobacco: Never Smokeless Tobacco: Never [facility] Utilities Answer Date Recorded In the past 12 months has [employer], gas, oil, or water [employer] threatened to shut off services in your [...] How often do you attend chur or lutheran services? More than 4 times per year 12/16/2023 Do you belong to any clubs o r organizations such as taoism groups, unions, fraternal or athletic groups, or [...] heating? Not hard at all 12/16/2023 [facility] [place] of Occupat ional Health - Occupational Stress [...] any time in the past 12 m [facility], were you homeless or living in a half-way (including now)? No 12/16/2023 Personal Safety Answer Date Recorded Have you ever been in or are you currently in a harmful physical or emotional relationship or is someone making you feel afraid or unsafe? Denies 12/16/2023 Comments Unknown Sex and Gender Information Value Date Recorded Sex Assigned at Not on file Legal Sex Female 8:22 PM PRICING ACTUARY Gender Identity Female 02/07/2019 1:03 PM CDT [...] Read Routine (OP Routine) 06/30/2021 2:03 PM PRICING ACTUARY Osteopenia of multiple sites from Last 3 Months or Most Recently Relevant to Health Maintenance Results * Dexa Axial Skeleton Bone Density 1 or 2 Site (06/30/2021 2:03 PM PRICING ACTUARY) Anatomical Region Laterality Modality Body N/A Radiographic Lyla ging Narrative 06/30/2021 4:18 PM PRICING ACTUARY Patient Name: Patsy Kerns Date of : 1940 Date of scan: 06/30/2021 Bone mineral density was performed on a [employer] Discovery Densitometer. Based on machine cross-calibration and [...] mineral density scan were prepared by Lizbeth Hooks(Rachelle) BRITTA who is accredited by the International Society of Clinical Densitometry. The overall patient assessment and scan interpretation were performed by Joaquín Oglesby M.D. who is certified by the International Society of Clinical Densitometry. [id number] Joaquín Oglesby MD IMG DXA PROCEDURES Final Result from Last 3 Months or Most Recently Relevant to Health Maintenance Insurance T MEDICARE UHC MEDICARE ADVANTAGE [employer] MEDICARE Advance Directives For more information, please contact: [phone] * Full Code (Latest Code Status on File) Date Activated Date Inactivated Comments 12/16/2023 12:17 PM 12/21/2023 9:33 PM Care Teams Bow String Maker Relationship Specialty Start Date End Date Harish Edwards MD [address] [place] [address] PCP - General Family Medicine 12/16/23 Theresa Brandon MD [address] [place] [address] Medical Oncologist/Pocket Builder Hematology 06/21/20
== END 2024-09-05 09:58 | disposition home or self-care (01) ==
LOC: ANHLAB 09:59
PROVIDERS: PCP Nurse Practitioner Adult Health; Visit Provider Internal Medicine
DX: M06.89 Other specified rheumatoid arthritis, multiple sites (principal); Z79.899 Other long term (current) drug therapy
CPT/HCPCS: 36415; 80053; 81003; 84100; 85652; 86140

== ENCOUNTER 2024-11-01 12:54 | Outpatient (CLI) | payer MEDICARE, SELFPAY ==
[2024-11-01 13:50] LABS: Alanine Aminotransferase 29 U/L (6-35); Albumin Level 4.1 g/dL (3.5-5.1); Alkaline Phosphatase 42 U/L (38-126); Anion Gap 9 mmol/L (4-12); Aspartate Amino Transferase 47 U/L (14-36); Bilirubin Indirect 0.5 mg/dL (0-1.1); Bilirubin,Total 0.4 mg/dL (0.2-1.3); Blood Urea Nitrogen 18 mg/dL (7-17); CRP < 0.5 mg/dL (<1.0); Calcium 9.2 mg/dL (8.4-10.2); Carbon Dioxide 25 mmol/L (22-30); Chloride 96 mmol/L (98-107); Estimated Glomerular Filt Rate 57; Glucose 91 mg/dL (65-110); Potassium 4.1 mmol/L (3.4-5.0); Sodium 130 mmol/L (137-145); Total Protein 7.6 g/dL (6.3-8.2)
[2024-11-01 14:06] LABS: Erythrocyte Sedimentation Rate 39 mm/hr (0-20)
--- OUTSIDE RECORDS SUMMARY | 2024-11-01 14:21 | XMS_ITS | Clinical Summary ---
Author Organization [facility] Address [address] [place] [address] Care Team Providers Care Ecology Teacher Name Role Phone Theresa Brandon MD Unavailable Harish Edwards MD Primary Care Provider [phone] Allergies Active Allergy Reactions Criticality Noted Date [...] LA and RA size. Mild TR and DE. PASP 32 mmHg.Normal LV diastolic function. IVC [...] [facility], , after-hours emergency [phone] or Temporal bone fracture 2023 Assessment & Plan (12/21/2023 1:49 PM CDT): #Blood in L EAC #Bilateral mastoid effusions - ENT c/s - Facial nerve intact - hearing intact - ofloxacin gtt BID for 5 days to left EAC for otorrhea - Follow Up: Audiogram and otology as outpatient in 4-6 weeks (call [phone] to schedule this with follow up appt) [...] Mack Osteoarthritis Mother Becky Mack Osteoporosis Mother Becyk Mack Family histor y of osteoporosis - (Added by TW Conv) Osteoporosis Other Family history of osteoporosis - (Added by TW Conv) Relation Name Status Comments Father Marcos Mack Mother Becky Mack Other Social History Tobacco Use Types Packs/Day Years Used Date Smoking Tobacco: Never Smokeless Tobacco: Never [employer] Utilities Answer Date Recorded In the past 12 months has th e electric, gas, oil, or water [employer] threatened to shut off services in your [...] often do you attend chur ch or baptism services? More than 4 times per year 12/16/2023 Do you belong to any clubs o r organizations such as rastafari groups, unions, fraternal or athletic groups, or [...] and heating? Not hard at all 12/16/2023 [facility] [place] of Occupat ional Health - Occupational Stress [...] any time in the past 12 m [facility], were you homeless or living in a penitentiary (including now)? No 12/16/2023 Personal Safety Answer Date Recorded Have you ever been in or are you currently in a harmful physical or emotional relationship or is someone making you feel afraid or unsafe? Denies 12/16/2023 Comments Unknown Sex and Gender Information Value Date Recorded Sex Assigned at Not on file Legal Sex Female 8:22 PM HAND RIVETER Gender Identity Female 02/07/2019 1:03 PM CDT [...] 10:58 AM CDT Height 154.9 cm (5' 1) 12/17/2023 9:50 AM CDT Body Mass Index [...] Read Routine (OP Routine) 06/30/2021 2:03 PM HAND RIVETER Osteopenia of multiple sites from Last 3 Months or Most Recently Relevant to Health Maintenance Results * Dexa Axial Skeleton Bone Density 1 or 2 Site (06/30/2021 2:03 PM HAND RIVETER) Anatomical Region Laterality Modality Body N/A Radiographic Lyla ging Narrative 06/30/2021 4:18 PM HAND RIVETER Patient Name: Patsy Kerns Date of : [...] by the International Society of Clinical Densitometry. [id number] Joaquín Oglesby MD IMG DXA PROCEDURES Final Result from Last 3 Months or Most Recently Relevant to Health Maintenance Insurance [facility] MEDICARE [facility] MEDICARE ADVANTAGE [facility] MEDICARE Advance Directives For more information, please contact: [phone] * Full Code (Latest Code Status on File) Date Activated Date Inactivated Comments 12/16/2023 12:17 PM 12/21/2023 9:33 PM Care Teams Ecology Teacher Relationship Specialty Start Date End Date Harish Edwards MD [address] [place] [address] PCP - General Family Medicine 12/16/23 Theresa Brandon MD [facility] [address] [place] [address] Medical Oncologist/Obstetrician Hematology 06/21/20
--- OUTSIDE RECORDS SUMMARY | 2024-11-01 14:21 | XMS_ITS ---
Author Name Auto Generated, Auto Generated Organization [facility] Address [address] [place] [address] Phone [phone] Care Team Providers Care Smash Hand Name Role Phone Romeo Lemus Functional Status No Results Mental Status No Results Allergies and Intolerances Name Onset Date Reaction Severity leflunomide (Allergy) WedDec 20 19:15:00 EDT 20 24 Encounters Program Name Primary Diagnosis Admission Date/Time Dis charge Date/Time null WedSeptember 21 07:00 :00 EDT 2019 [facility] WedDec 20 14:01:00 EDT [...] Indication: RA Pt has home supply in [place] WedDec 21 11:56:00 EDT 2023Jan 04 01:00:00 [...] 2023 * End Date: * Text: * correction (current) use of Janus kinase inhibitor* Code: [...] EDT 2023 Systolic Blood Pressure 146.00 mm[Hg] WedJan 01 23:49:03 EDT 2023 Diastolic Blood Pressure 70.00 mm[Hg] WedJan 01 23:49:03 EDT 2023 Heart Rate 66.00 /min WedJan 01 23:49 :03 EDT 2023 Body temperature 97.80 [degF] [facility] Jan 01 23:4 9:03 EDT 2023 Respiratory rate 16.00 /min [facility] Jan 01 23:4 9:03 EDT 2023 Body weight 118.00 [lb_av] [facility] Jan 01 10:57 :23 EDT 2023 Systolic Blood Pressure 172.00 mm[Hg] [facility] Jan 01 09:16:31 EDT 2023 Diastolic Blood Pressure 72.00 mm[Hg] [facility] Jan 01 09:16:31 EDT 2023 Heart Rate 63.00 /min [facility] Jan 01 09:16 :31 EDT 2023 Body temperature 97.70 [degF] [facility] Jan 01 09:1 6:31 EDT 2023 Respiratory rate 18.00 /min [facility] Jan 01 09:1 6:31 EDT 2023 Systolic Blood Pressure 142.00 mm[Hg] [facility] Jan 01 09:14:49 EDT 2023 Diastolic Blood Pressure 73.00 mm[Hg] [facility] Jan 01 09:14:49 EDT 2023 Systolic Blood Pressure 154.00 mm[Hg] [facility] Dec 31 22:43:17 EDT 2023 Diastolic Blood Pressure 80.00 mm[Hg] [facility] Dec 31 22:43:17 EDT 2023 Heart Rate 65.00 /min [facility] Dec 31 22:43 :17 EDT 2023 Body temperature 97.70 [degF] [facility] Dec 31 22:4 3:17 EDT 2023 Respiratory rate 18.00 /min [facility] Dec 31 22:4 3:17 EDT 2023 Systolic Blood Pressure 140.00 mm[Hg] [facility] Dec 31 21:36:52 EDT 2023 Diastolic Blood Pressure 74.00 mm[Hg] [facility] Dec 31 21:36:52 EDT 2023 Pulse Oximetry 99.00 % [facility] Dec 31 21:36 :52 EDT 2023 Heart Rate 63.00 /min [facility] Dec 31 21:36 :52 EDT 2023 Body weight 119.80 [lb_av] [facility] Dec 31 11:24 :49 EDT 2023 Systolic Blood Pressure 143.00 mm[Hg] [facility] Dec 31 09:07:20 EDT 2023 Diastolic Blood Pressure 71.00 mm[Hg] [facility] Dec 31 09:07:20 EDT 2023 Systolic Blood Pressure 143.00 mm[Hg] [facility] Dec 31 08:32:19 EDT 2023 Diastolic Blood Pressure 71.00 mm[Hg] [facility] Dec 31 08:32:19 EDT 2023 Heart Rate 68.00 /min WedDec 31 08:32 :19 EDT 2023 Body temperature 98.00 [degF] [facility] Dec 31 08:3 2:19 EDT 2023 Respiratory rate 17.00 /min [facility] Dec 31 08:3 2:19 EDT 2023 [...] :33 EDT 2023 Body temperature 98.20 [degF] WedDec 29 22:5 3:33 EDT 2023 Respiratory rate 16.00 /min WedDec 29 22:5 3:33 EDT 2023 Systolic Blood Pressure 143.00 mm[Hg] WedDec 29 14:06:46 EDT 2023 Diastolic Blood Pressure 75.00 mm[Hg] WedDec 29 14:06:46 EDT 2023 Respiratory rate 18.00 /min [facility] Dec 29 14:0 6:46 EDT 2023 Body weight 121.20 [lb_av] [facility] Dec 29 13:18 :11 EDT 2023 Systolic Blood Pressure 170.00 mm[Hg] [facility] Dec 29 09:09:58 EDT 2023 Diastolic Blood Pressure 83.00 mm[Hg] [facility] Dec 29 09:09:58 EDT 2023 Systolic Blood Pressure 170.00 mm[Hg] [facility] Dec 29 09:09:58 EDT 2023 Diastolic Blood Pressure 83.00 mm[Hg] [facility] Dec 29 09:09:58 EDT 2023 Heart Rate 75.00 /min [facility] Dec 29 09:09 :58 EDT 2023 Body temperature 97.70 [degF] [facility] Dec 29 09:0 9:58 EDT 2023 Respiratory rate 18.00 /min [facility] Dec 29 09:0 9:58 EDT 2023 Systolic [...] 75.00 mm[Hg] WedDec 28 09:28:04 EDT 2023 Pulse Oximetry 100.00 % WedDec 28 09:28 :04 EDT 2023 Heart Rate 82.00 /min WedDec 28 09:28 :04 EDT 2023 Body temperature 97.10 [degF] WedDec 28 09:2 8:04 EDT 2023 Respiratory rate 18.00 /min WedDec 28 09:2 8:04 EDT 2023 Systolic Blood Pressure 111.00 mm[Hg] [...] 9:36 EDT 2023 Respiratory rate 18.00 /min [facility] Dec 26 08:2 9:36 EDT 2023 Systolic Blood Pressure 158.00 mm[Hg] [facility] Dec 25 19:42:06 EDT 2023 Diastolic Blood Pressure 72.00 mm[Hg] [facility] Dec 25 19:42:06 EDT 2023 Heart Rate 78.00 /min [facility] Dec 25 19:42 :06 EDT 2023 Body temperature 97.90 [degF] [facility] Dec 25 19:4 2:06 EDT 2023 Respiratory rate 20.00 /min [facility] Dec 25 19:4 2:06 EDT 2023 Systolic Blood Pressure 143.00 mm[Hg] [facility] Dec 25 10:12:09 EDT 2023 Diastolic Blood Pressure 86.00 mm[Hg] [facility] Dec 25 10:12:09 EDT 2023 Body weight 120.00 [lb_av] [facility] Dec 25 10:12 :09 EDT 2023 Heart Rate 84.00 /min [facility] Dec 25 10:12 :09 EDT 2023 Body temperature 97.80 [degF] [facility] Dec 25 10:1 2:09 EDT 2023 Respiratory rate 18.00 /min [facility] Dec 25 10:1 2:09 EDT 2023 Systolic Blood Pressure 150.00 mm[Hg] [facility] Dec 24 23:58:15 EDT 2023 Diastolic Blood Pressure 79.00 mm[Hg] [facility] Dec 24 23:58:15 EDT 2023 Heart Rate 73.00 /min [facility] Dec 24 23:58 :15 EDT 2023 Body temperature 97.70 [degF] [facility] Dec 24 23:5 8:15 EDT 2023 Respiratory rate 18.00 /min [facility] Dec 24 23:5 8:15 EDT 2023 Systolic Blood Pressure 148.00 mm[Hg] WedDec 24 09:37:53 EDT 2023 Diastolic Blood Pressure 81.00 mm[Hg] WedDec 24 09:37:53 EDT 2023 Body weight 118.20 [lb_av] WedDec 24 09:37 :53 EDT 2023 Heart Rate 74.00 /min WedDec 24 09:37 :53 EDT 2023 Body temperature 98.60 [degF] WedDec 24 09:3 7:53 EDT 2023 Respiratory rate 18.00 /min WedDec 24 09:3 7:53 EDT 2023 Systolic Blood [...] 83.00 mm[Hg] WedDec 20 23:30:00 EDT 2023 Pulse Oximetry 94.00 % WedDec 20 23:30 :00 EDT 2023 Heart Rate 74.00 /min WedDec 20 23:30 :00 EDT 2023 Body temperature 97.10 [degF] WedDec 20 23:3 0:00 EDT 2023 Respiratory rate 18.00 /min WedDec 20 23:3 0:00 EDT 2023 Reason for Referral
--- OUTSIDE RECORDS SUMMARY | 2024-11-01 14:21 | XMS_ITS | Clinical Summary ---
Author Organization [facility] Matt perez Alysia Address [address] [address] Care Team Providers Care Ground Crewman Mission Support Name Role Phone Harish Edwards MD Primary Care Provider [phone] Allergies Active Allergy Reactions Criticality Noted Date Comments Leflunomide Hives,Rash,Unknown High 04/01/2012 Medications calcium carbonate/vitami n D3 (CALCIUM WITH VITAMIN D ORAL) Take by mouth. Active amLODIPine (NORVASC) 5 mg tablet Take 1 Tablet by mouth daily. 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 Encounters Date Type Department Care Team Description 10/10/2024 External Device Data STL ABSTRACTION Provider, Abstract 10/04/2024 External Device Data STL ABSTRACTION Provider, Abstract 10/03/2024 External Device Data ST[facility] ABSTRACTION Provider, Abstract 08/11/2024 10:30 AM CDT Office Visit [facility] - [place] [address] [place] [address] Daniel Brizuela MD MGUS (monoclonal gammopathy of unknown significance) (Primary Dx) 08/09/2024 Orders Only [facility] - [place] [address] [place] [address] Daniel Brizuela MD 08/08/2024 Orders Only [facility] - [place] [address] [place] [id number] Daniel Brizuela MD from Last 3 Months Family History Medical [...] 10:27 AM CDT Height 165.1 cm (5' 5) 11/28/2021 2:08 PM CDT Body Mass Index 19.94 11/28/2021 2:08 PM CDT Plan of Treatment Upcoming Encounters Date Type Department Care Team (Late st Contact Info) Description 08/10/2025 10:00 AM CDT Office Visit [facility] - [place] [address] [facility] [address] [place] [id number] Daniel Brizuela MD [address] [facility] [address] [place] [address] Health Maintenance Due Date Last [...] PANEL (08/07/2024 1:28 PM CDT) Blood us Daniel Brizuela MD CHEMISTRY ORDERABLES Final Resu lt * CBC WITH DIFFERENTIAL (08/07/2024 11:27 AM CDT) Blood us Daniel Brizuela MD HEMATOLOGY ORDERABLES Final Res ult from Last 3 Months Insurance [employer] PPO MCR Care Teams Ground Crewman Mission Support Relationship Specialty Start Date End Date Harish Edwards MD [address] [place] [address] PCP - General Family Practice 11/28/21
--- OUTSIDE RECORDS SUMMARY | 2024-11-01 14:21 | XMS_ITS | Clinical Summary ---
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 ([facility]/HCC HHS/HCC) 05/25/2016 Other terminal supervisor (current) drug therapy 7 Multiple thyroid nodules 12/09/2015 Overview (03/08/2019): Transitioned From: Thyroid nodule Hepatic cyst 10/08/2015 Medication management 07/23/2015 Overview (03/08/2019): Transitioned From: termite technician use of drug Osteoporosis 07/25/2014 Strabismus 01/18/2014 [...] Master's degree (e.g., MA, MS, Benji, MEd, LACQUER SPRAYER, STERLING) 03/08/2019 Comments No Sex and Gender Information Value Date Recorded Sex Assigned at Female 03/08/2019 8:01 AM CDT Legal Sex Female 7:01 PM CDT Gender Identity Female 03/08/2019 8:01 AM CDT Sexual Orientation Straight 03/08/2019 8: 01 AM CDT Last Filed Vital Signs Vital Sign Reading Time Taken Comments Blood Pressure 126/70 05/21/2021 1:07 PM FLOUR INSPECTOR Pulse 88 04/16/2021 1:55 PM FLOUR INSPECTOR Temperature 36.9 C (98.5 F) 04/16/2021 10:53 AM FLOUR INSPECTOR Respiratory Rate 20 04/16/2021 1:55 PM FLOUR INSPECTOR Oxygen Saturation 99% 04/16/2021 10:53 AM FLOUR INSPECTOR Inhaled Oxygen Concentration - - Weight 54 kg (119 lb) 05/21/2021 1:07 PM FLOUR INSPECTOR Height 165.1 cm (5' 5) 05/21/2021 1:07 PM FLOUR INSPECTOR Body Mass Index 19.8 05/21/2021 1:07 PM FLOUR INSPECTOR Plan of Treatment Health Maintenance Due Date [...] age to complete this topic Insurance MED [facility] MEDICARE Advance Directives Documents on File Type Date Recorded Patient Java Swing Developer Expl anation Advance Directives and Living Will 07/19/2019 2:39 PM POLST - ATTEMPT - 07/07/19 Advance Directives and Living Will 11/22/2017 SADVANCE DIRECTIVES Care Teams Television Production Clerk Relationship Specialty Start Date End Date Romeo Lemus MD PCP - General INTERNAL MEDICINE 12/07/18 Adolfo Young MD [address] [place] [address] Consulting Physician RHEUMATOLOGY 03/08/19 Joaquín Oglesby MD [address] [address] [address] [place] [address] Consulting Physician ENDOCRINOLOGY 04/18/20
--- OUTSIDE RECORDS SUMMARY | 2024-11-01 14:22 | XMS_ITS | Referral Summary ---
Author Organization [facility] Address [address] [place] [address] Care Team Providers Care Casing Operator Name Role Phone Theresa Brandon MD Unavailable Harish Edwards MD Primary Care Provider [phone] Allergies Active Allergy Reactions Criticality Noted Date [...] LA and RA size. Mild TR and VT. PASP 32 mmHg.Normal LV diastolic function. IVC [...] [facility], , after-hours emergency [phone] or Temporal bone fracture 2023 Assessment & Plan (12/21/2023 1:49 PM CDT): #Blood in L EAC #Bilateral mastoid effusions - ENT c/s - Facial nerve intact - hearing intact - ofloxacin gtt BID for 5 days to left EAC for otorrhea - Follow Up: Audiogram and otology as outpatient in 4-6 weeks (call [phone] to schedule this with follow up appt) [...] Date Smoking Tobacco: Never Smokeless Tobacco: Never [employer] Answer Date Recorded In the past 12 months has [employer], gas, oil, or water [employer] threatened to shut off services in your [...] How often do you attend chur or buddhist services? More than 4 times per year 12/16/2023 Do you belong to any clubs o r organizations such as yazidi groups, unions, fraternal or athletic groups, or [...] and heating? Not hard at all 12/16/2023 [facility] [place] of Occupat ional Health - Occupational Stress [...] any time in the past 12 m [facility], were you homeless or living in a long-term (including now)? No 12/16/2023 Personal Safety Answer Date Recorded Have you ever been in or are you currently in a harmful physical or emotional relationship or is someone making you feel afraid or unsafe? Denies 12/16/2023 Comments Unknown Sex and Gender Information Value Date Recorded Sex Assigned at Not on file Legal Sex Female 8:22 PM INDUSTRIAL ORGANIZATION MANAGER Gender Identity Female 02/07/2019 1:03 PM [...] Read Routine (OP Routine) 06/30/2021 2:03 PM INDUSTRIAL ORGANIZATION MANAGER Osteopenia of multiple sites from Last 3 Months or Most Recently Relevant to Health Maintenance Results * Dexa Axial Skeleton Bone Density 1 or 2 Site (06/30/2021 2:03 PM INDUSTRIAL ORGANIZATION MANAGER) Anatomical Region Laterality Modality Body N/A Radiographic Lyla ging Narrative 06/30/2021 4:18 PM INDUSTRIAL ORGANIZATION MANAGER Patient Name: Patsy Kerns Date of : 1940 Date of scan: 06/30/2021 Bone mineral density was performed on a HoloVaimicom Discovery Densitometer. Based on machine cross-calibration and [...] by the International Society of Clinical Densitometry. [id number] Joaquín Oglesby MD IMG DXA PROCEDURES Final Result from Last 3 Months or Most Recently Relevant to Health Maintenance Insurance T MEDICARE UHC MEDICARE ADVANTAGE [employer]ET[employer] MEDICARE Advance Directives For more information, please contact: [phone] * Full Code (Latest Code Status on File) Date Activated Date Inactivated Comments 12/16/2023 12:17 PM 12/21/2023 9:33 PM Care Teams Casing Operator Relationship Specialty Start Date End Date Harish Edwards MD [address] [place] [address] PCP - General Family Medicine 12/16/23 Theresa Brandon MD [address] [place] [address] Medical Oncologist/Community Health Consultant Hematology 06/21/20
--- OUTSIDE RECORDS SUMMARY | 2024-11-01 14:22 | XMS_ITS | Encounter Summary ---
Author Organization [facility] Address [address] [place] [address] Phone Care Team Providers Care Professor Of Art Name Role Phone Romeo Lemus MD Primary Care Provider + Theresa Brandon MD Unavailable [phone] Harish Edwards MD Primary Care Provider [phone] Encounter Details Date Type Department Care Team (Latest Contact Info) Description 04/24/2020 Orders Only [facility] Scanning, Provider Social History Tobacco Use Types Packs/Day Years Used Date Smoking Tobacco: Never Smokeless Tobacco: Never Comments Unknown Sex and Gender Information Value Date Recorded Sex Assigned at Not on file Legal Sex Female 8:22 PM BOX FINISHER Gender Identity Female 02/07/2019 1:03 PM CDT [...] documented as of this encounter Care Teams Professor Of Art Relationship Specialty Start Date End Date Romeo Lemus MD PCP - General Internal Medicine 06/23/19 12/15/23 Harish Edwards MD [address] [place] [address] PCP - General Family Medicine 12/16/23 Theresa Brandon MD [address] [place] [address] Medical Oncologist/Barrel Polisher Hematology 06/21/20 documented as of this encounter
--- OUTSIDE RECORDS SUMMARY | 2024-11-01 14:22 | XMS_ITS | Clinical Summary ---
Author Organization [facility] Address [address] [place] [address] Care Team Providers Care Ela Teacher Name Role Phone Romeo Lemus MD Primary Care Provider [phone] Source Comments [facility],non-owned Affiliates and Associated Physician Practices is amultiple site organization consisting of ambulatory clinics and hospital sitesin [place], [place], [place] and [place]. This disclosure is being madepursuant to the Care Everywhere program and may not contain all information available regarding this patient. Last updated 18.[facility] Allergies Active Allergy Reactions Criticality Noted Date [...] Problems Problem Noted Date Diagnosed Date Other detention (current) drug therapy [address] of [facility] sites without organ or system involvement [...] on file Legal Sex Female 5:24 PM DIRECTOR INSTITUTION Gender Identity Not on file Sexual Orientation Not on file Last Filed Vital Signs Vital Sign Reading Time Taken Comments Blood Pressure 142/88 07/01/2021 12:14 PM DIRECTOR INSTITUTION Pulse 78 10/29/2020 1:00 PM CDT Temperature 36.8 C (98.2 F) 07/01/2021 12:14 PM DIRECTOR INSTITUTION Respiratory Rate 16 10/29/2020 1:00 PM CDT Oxygen Saturation 98% 10/29/2020 1:00 PM CDT Inhaled Oxygen Concentration - - Weight 53.5 kg (118 lb) 07/01/2021 12:14 PM DIRECTOR INSTITUTION Height 165.1 cm (5' 5) 07/01/2021 12:14 PM DIRECTOR INSTITUTION Body Mass Index 19.64 07/01/2021 12:14 PM DIRECTOR INSTITUTION Plan of Treatment Health Maintenance Due Date Last Done Comments BONE DENSITY TESTING 1940 PNEUMOCOCCAL VACCINE 50+ (2 of 2 - PCV20 or PCV21) 05/29/2016 05/29/2015 Respiratory Syncytial Virus (RSV) Vaccine [...] patient's age to complete [place] [address] [facility] MANAGED MEDICARE ADV Care Teams Ela Teacher Relationship Specialty Start Date End Date Romeo Lemus MD [address] [place] [address] PCP - General 10/22/14
--- OUTSIDE RECORDS SUMMARY | 2024-11-01 14:22 | XMS_ITS ---
Author Name Auto Generated, Auto Generated Organization [facility] Address [address] [place] [address] Phone [phone] Care Team Providers Care Broker Associate Name Role Phone Romeo Lemus Functional Status No Results Mental Status No Results Allergies and Intolerances Name Onset Date Reaction Severity leflunomide (Allergy) WedDec 20 19:15:00 EDT 20 24 Encounters Program Name Primary Diagnosis Admission Date/Time Dis charge Date/Time null WedSeptember 21 07:00 :00 EDT 2019 Glass Cleaning Machine Tender [facility] Facility [facility] [...] Indication: RA Pt has home supply in [place] WedDec 21 11:56:00 EDT 2023Jan 04 01:00:00 [...] 2023 * End Date: * Text: * halfway (current) use of Janus kinase inhibitor* Code: [...] :03 EDT 2023 Body temperature 97.80 [degF] [place] Jan 01 23:4 9:03 EDT 2023 Respiratory rate 16.00 /min [facility] Jan 01 23:4 9:03 EDT 2023 Body weight 118.00 [lb_av] [facility] Jan 01 10:57 :23 EDT 2023 Systolic Blood Pressure 172.00 mm[Hg] [facility] Jan 01 09:16:31 EDT 2023 Diastolic Blood Pressure 72.00 mm[Hg] [facility] Jan 01 09:16:31 EDT 2023 Heart Rate 63.00 /min [facility] Jan 01 09:16 :31 EDT 2023 Body temperature 97.70 [degF] [facility] Jan 01 09:1 6:31 EDT 2023 Respiratory rate 18.00 /min [facility] Jan 01 09:1 6:31 EDT 2023 Systolic Blood Pressure 142.00 mm[Hg] [facility] Jan 01 09:14:49 EDT 2023 Diastolic Blood Pressure 73.00 mm[Hg] [facility] Jan 01 09:14:49 EDT 2023 Systolic Blood Pressure 154.00 mm[Hg] [facility] Dec 31 22:43:17 EDT 2023 Diastolic Blood Pressure 80.00 mm[Hg] [facility] Dec 31 22:43:17 EDT 2023 Heart Rate 65.00 /min [facility] Dec 31 22:43 :17 EDT 2023 Body temperature 97.70 [degF] [facility] Dec 31 22:4 3:17 EDT 2023 Respiratory rate 18.00 /min [facility] Dec 31 22:4 3:17 EDT 2023 Systolic Blood Pressure 140.00 mm[Hg] [facility] Dec 31 21:36:52 EDT 2023 Diastolic Blood Pressure 74.00 mm[Hg] [facility] Dec 31 21:36:52 EDT 2023 Pulse Oximetry 99.00 % [facility] Dec 31 21:36 :52 EDT 2023 Heart Rate 63.00 /min [facility] Dec 31 21:36 :52 EDT 2023 Body weight 119.80 [lb_av] [facility] Dec 31 11:24 :49 EDT 2023 Systolic Blood Pressure 143.00 mm[Hg] [facility] Dec 31 09:07:20 EDT 2023 Diastolic Blood Pressure 71.00 mm[Hg] [facility] Dec 31 09:07:20 EDT 2023 Systolic Blood Pressure 143.00 mm[Hg] [facility] Dec 31 08:32:19 EDT 2023 Diastolic Blood Pressure 71.00 mm[Hg] [facility] Dec 31 08:32:19 EDT 2023 Heart Rate 68.00 /min WedDec 31 08:32 :19 EDT 2023 Body temperature 98.00 [degF] [facility] Dec 31 08:3 2:19 EDT 2023 Respiratory rate 17.00 /min [facility] Dec 31 08:3 2:19 EDT 2023 [...] 14:06:46 EDT 2023 Respiratory rate 18.00 /min [facility] Dec 29 14:0 6:46 EDT 2023 Body weight 121.20 [lb_av] [facility] Dec 29 13:18 :11 EDT 2023 Systolic Blood Pressure 170.00 mm[Hg] [facility] Dec 29 09:09:58 EDT 2023 Diastolic Blood Pressure 83.00 mm[Hg] [facility] Dec 29 09:09:58 EDT 2023 Systolic Blood Pressure 170.00 mm[Hg] [facility] Dec 29 09:09:58 EDT 2023 Diastolic Blood Pressure 83.00 mm[Hg] [facility] Dec 29 09:09:58 EDT 2023 Heart Rate 75.00 /min [facility] Dec 29 09:09 :58 EDT 2023 Body temperature 97.70 [degF] [facility] Dec 29 09:0 9:58 EDT 2023 Respiratory rate 18.00 /min [facility] Dec 29 09:0 9:58 EDT 2023 [...] 9:36 EDT 2023 Respiratory rate 18.00 /min [facility] Dec 26 08:2 9:36 EDT 2023 Systolic Blood Pressure 158.00 mm[Hg] [facility] Dec 25 19:42:06 EDT 2023 Diastolic Blood Pressure 72.00 mm[Hg] [facility] Dec 25 19:42:06 EDT 2023 Heart Rate 78.00 /min [facility] Dec 25 19:42 :06 EDT 2023 Body temperature 97.90 [degF] [facility] Dec 25 19:4 2:06 EDT 2023 Respiratory rate 20.00 /min [facility] Dec 25 19:4 2:06 EDT 2023 Systolic Blood Pressure 143.00 mm[Hg] [facility] Dec 25 10:12:09 EDT 2023 Diastolic Blood Pressure 86.00 mm[Hg] [facility] Dec 25 10:12:09 EDT 2023 Body weight 120.00 [lb_av] [facility] Dec 25 10:12 :09 EDT 2023 Heart Rate 84.00 /min [facility] Dec 25 10:12 :09 EDT 2023 Body temperature 97.80 [degF] [facility] Dec 25 10:1 2:09 EDT 2023 Respiratory rate 18.00 /min [facility] Dec 25 10:1 2:09 EDT 2023 Systolic Blood Pressure 150.00 mm[Hg] [facility] Dec 24 23:58:15 EDT 2023 Diastolic Blood Pressure 79.00 mm[Hg] [facility] Dec 24 23:58:15 EDT 2023 Heart Rate 73.00 /min [facility] Dec 24 23:58 :15 EDT 2023 Body temperature 97.70 [degF] [facility] Dec 24 23:5 8:15 EDT 2023 Respiratory rate 18.00 /min [facility] Dec 24 23:5 8:15 EDT 2023 [...]
--- OUTSIDE RECORDS SUMMARY | 2024-11-01 14:22 | XMS_ITS | Encounter Summary ---
Author Organization [facility] Address [address] [place] [address] Phone Care Team Providers Care Semiconductor Wafers Tester Name Role Phone Romeo Lemus MD Primary Care Provider + Theresa Brandon MD Unavailable [phone] Harish Edwards MD Primary Care Provider + [phone] Encounter Details Date Type Department Care Team (Latest Contact Info) Description 05/03/2020 Orders Only [facility] Scanning, Provider Social History Tobacco Use Types Packs/Day Years Used Date Smoking Tobacco: Never Smokeless Tobacco: Never Comments Unknown Sex and Gender Information Value Date Recorded Sex Assigned at Not on file Legal Sex Female 8:22 PM BINDING CEMENTER FRENCH CORD Gender Identity Female 02/07/2019 1:03 PM CDT [...] documented as of this encounter Care Teams Semiconductor Wafers Tester Relationship Specialty Start Date End Date Romeo Lemus MD PCP - General Internal Medicine 06/23/19 12/15/23 Harish Edwards MD [address] [place] [address] [place] [address] PCP - General Family Medicine 12/16/23 Theresa Brandon MD [address] [place] [address] Medical Oncologist/Equipment Associate Hematology 06/21/20 documented as of this encounter
== END 2024-11-01 12:55 | disposition home or self-care (01) ==
LOC: ANHLAB 12:56
PROVIDERS: PCP Family Medicine; Visit Provider Internal Medicine
DX: M05.79 Rheumatoid arthritis with rheumatoid factor of multiple sites without organ or systems involvement (principal); Z79.899 Other long term (current) drug therapy
CPT/HCPCS: 36415; 80053; 82248; 85652; 86140

== ENCOUNTER 2024-12-14 08:32 | Outpatient (CLI) | payer MEDICARE, SELFPAY ==
--- OUTSIDE RECORDS SUMMARY | 2024-12-14 08:23 | XMS_ITS | Encounter Summary ---
Author Organization [facility] [employer] [facility] Address [address] [place] [address] Phone Care Team Providers Care Pressfitter Name Role Phone Romeo Lemus MD Primary Care Provider + Theresa Brandon MD Unavailable [phone] Harish Edwards MD Primary Care Provider + [phone] Encounter Details Date Type Department Care Team (Latest Contact Info) Description 04/24/2020 Orders Only [facility]COL[facility] Scanning, Provider Social History Tobacco Use Types Packs/Day Years Used Date Smoking Tobacco: Never Smokeless Tobacco: Never Comments Unknown Sex and Gender Information Value Date Recorded Sex Assigned at Not on file Legal Sex Female 8:22 PM PROJECT ECONOMIST Gender Identity Female 02/07/2019 1:03 PM CDT [...] documented as of this encounter Care Teams Pressfitter Relationship Specialty Start Date End Date Romeo Lemus MD PCP - General Internal Medicine 06/23/19 12/15/23 Harish Edwards MD [address] [place] [address] PCP - General Family Medicine 12/16/23 Theresa Brandon MD [address] [place] [address] Medical Oncologist/Manufacturing Support Engineer Hematology 06/21/20 documented as of this encounter
--- OUTSIDE RECORDS SUMMARY | 2024-12-14 08:23 | XMS_ITS | Clinical Summary ---
Author Organization [facility] Address [address] [place] [address] Care Team Providers Care Licensing And Registration Director Name Role Phone Theresa Brandon MD Unavailable Harish Edwards MD Primary Care Provider [phone] Allergies Active Allergy Reactions Criticality Noted Date [...] LA and RA size. Mild TR and ID. PASP 32 mmHg.Normal LV diastolic function. IVC [...] [facility], , after-hours emergency [phone] or Temporal bone fracture 2023 Assessment & Plan (12/21/2023 1:49 PM CDT): #Blood in L EAC #Bilateral mastoid effusions - ENT c/s - Facial nerve intact - hearing intact - ofloxacin gtt BID for 5 days to left EAC for otorrhea - Follow Up: Audiogram and otology as outpatient in 4-6 weeks (call [phone] to schedule this with follow up appt) [...] Date Smoking Tobacco: Never Smokeless Tobacco: Never Filtr8 Utilities Answer Date Recorded In the past 12 months has th e electric, gas, oil, or water [employer] threatened to shut off services in your [...] often do you attend chur ch or gnosticism services? More than 4 times per year 12/16/2023 Do you belong to any clubs o r organizations such as moravian groups, unions, fraternal or athletic groups, or [...] and heating? Not hard at all 12/16/2023 [facility] [place] of Occupat ional Health - Occupational Stress [...] any time in the past 12 m [facility], were you homeless or living in a fci (including now)? No 12/16/2023 Personal Safety Answer Date Recorded Have you ever been in or are you currently in a harmful physical or emotional relationship or is someone making you feel afraid or unsafe? Denies 12/16/2023 Comments Unknown Sex and Gender Information Value Date Recorded Sex Assigned at Not on file Legal Sex Female 8:22 PM RN POST PARTUM Gender Identity Female 02/07/2019 1:03 PM CDT [...] Fall Risk Assessment 12/20/2024 12/21/2023 Influenza Vaccine (#1) 2025 , 03/08/2019, 03/08/2019, Additional history exists DTaP/Tdap/Td Vaccine (3 - Td or Tdap) 10/29/2027 10/28/2017, 12/24/2012 Zoster Vaccine Completed 08/25/2018, 04/29/2018 Procedures Procedure Name Priority Date/Time Associated Diagnosis Comments DEXA AXIAL SKELETON BONE DENSITY 1 OR MORE SITES Schedule Routine, Read Routine (OP Routine) 06/30/2021 2:03 PM RN POST PARTUM Osteopenia of multiple sites from Last 3 Months or Most Recently Relevant to Health Maintenance Results * Dexa Axial Skeleton Bone Density 1 or 2 Site (06/30/2021 2:03 PM RN POST PARTUM) Anatomical Region Laterality Modality Body N/A Radiographic Lyla ging Narrative 06/30/2021 4:18 PM RN POST PARTUM Patient Name: Patsy Kerns Date of : [...] by the International Society of Clinical Densitometry. [id number] Joaquín Oglesby MD IMG DXA PROCEDURES Final Result from Last 3 Months or Most Recently Relevant to Health Maintenance Insurance [facility] MEDICARE [facility] MEDICARE ADVANTAGE [facility] MEDICARE Advance Directives For more information, please contact: [phone] * Full Code (Latest Code Status on File) Date Activated Date Inactivated Comments 12/16/2023 12:17 PM 12/21/2023 9:33 PM Care Teams Licensing And Registration Director Relationship Specialty Start Date End Date Harish Edwards MD [address] [address] PCP - General Family Medicine 12/16/23 Theresa Brandon MD [facility] [address] [place] [address] Medical Oncologist/Custodial Laborer Hematology 06/21/20
--- OUTSIDE RECORDS SUMMARY | 2024-12-14 08:23 | XMS_ITS | Clinical Summary ---
Author Organization [facility] Address [address] [place] [address] Care Team Providers Care Etcher Apprentice Photoengraving Name Role Phone Romeo Lemus MD Primary Care Provider [phone] [facility],non-owned Affiliates and Associated Physician Practices is amultiple site organization consisting of ambulatory clinics and hospital sitesin [place], [place], [place] and [place]. This disclosure is being madepursuant to the Care Everywhere program and may not contain all information available regarding this patient. Last updated 18.[facility] Allergies Active Allergy Reactions Criticality Noted Date [...] (current) drug therapy 7 Rheumatoid arthritis of [facility] sites without organ or system involvement with [...] on file Legal Sex Female 5:24 PM RELATIONSHIP MGR Gender Identity Not on file Sexual Orientation Not on file Last Filed Vital Signs Vital Sign Reading Time Taken Comments Blood Pressure 142/88 07/01/2021 12:14 PM RELATIONSHIP MGR Pulse 78 10/29/2020 1:00 PM CDT Temperature 36.8 C (98.2 F) 07/01/2021 12:14 PM RELATIONSHIP MGR Respiratory Rate 16 10/29/2020 1:00 PM CDT Oxygen Saturation 98% 10/29/2020 1:00 PM CDT Inhaled Oxygen Concentration - - Weight 53.5 kg (118 lb) 07/01/2021 12:14 PM RELATIONSHIP MGR Height 165.1 cm (5' 5) 07/01/2021 12:14 PM RELATIONSHIP MGR Body Mass Index 19.64 07/01/2021 12:14 PM RELATIONSHIP MGR Plan of Treatment Health Maintenance Due Date Last Done Comments BONE DENSITY TESTING 1940 PNEUMOCOCCAL VACCINE 50+ (2 of 2 - PCV20 or PCV21) 05/29/2016 05/29/2015 Respiratory Syncytial Virus (RSV) Vaccine Pt: or over 60 yrs (1 - 1-dose 75+ series) 2017 COVID-19 VACCINE (3 - season) 2024 07/04/2020, 06/13/2020 DEPRESSION SCREENING 05/17/2024 MEDICARE AWV CALENDAR YEAR 2024 INFLUENZA VACCINE (#1) 2025 , 03/08/2019, 02/22/2018, Additional history exists DTAP/TDAP/TD VACCINES [...] patient's age to complete this topic Insurance , [facility]NAGED MEDICARE ADV [facility] MANAGED MEDICARE ADV Care Teams Etcher Apprentice Photoengraving Relationship Specialty Start Date End Date Romeo Lemus MD [address] [place] [address] PCP - General 10/22/14
--- OUTSIDE RECORDS SUMMARY | 2024-12-14 08:23 | XMS_ITS | Encounter Summary ---
Author Organization [facility] Address [address] [place] [address] Phone Care Team Providers Care Order Builder Loader Name Role Phone Romeo Lemus MD Primary Care Provider + Theresa Brandon MD Unavailable [phone] Harish Edwards MD Primary Care Provider + [phone] Encounter Details Date Type Department Care Team (Latest Contact Info) Description 05/03/2020 Orders Only [facility] Scanning, Provider Social History Tobacco Use Types Packs/Day Years Used Date Smoking Tobacco: Never Smokeless Tobacco: Never Comments Unknown Sex and Gender Information Value Date Recorded Sex Assigned at Not on file Legal Sex Female 8:22 PM CONTROL SYSTEMS SPECIALIST Gender Identity Female 02/07/2019 1:03 PM CDT [...] documented as of this encounter Care Teams Order Builder Loader Relationship Specialty Start Date End Date Romeo Lemus MD PCP - General Internal Medicine 06/23/19 12/15/23 Harish Edwards MD [address] [place] [address] [place] [address] PCP - General Family Medicine 12/16/23 Theresa Brandon MD [address] [place] [address] Medical Oncologist/Wire Mesh Knitter Hematology 06/21/20 documented as of this encounter
--- OUTSIDE RECORDS SUMMARY | 2024-12-14 08:23 | XMS_ITS | Clinical Summary ---
Author Organization [facility] Address [address] [place] [address] Care Team Providers Care Computer Tester Name Role Phone Harish Edwards MD Primary Care Provider [phone] Allergies Active Allergy Reactions Criticality Noted Date Comments Leflunomide Hives,Rash,Unknown High 04/01/2012 Medications calcium carbonate/vitami n D3 (CALCIUM WITH VITAMIN D ORAL) Take by mouth. Active amLODIPine (NORVASC) 5 mg tablet Take 1 Tablet by mouth daily. 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 Encounters Date Type Department Care Team Description 11/29/2024 External Device Data ST[facility] ABSTRACTION Provider, Abstract 11/29/2024 External Device Data ST[facility] ABSTRACTION Provider, Abstract 11/29/2024 External Device Data [facility] ABSTRACTION Provider, Abstract 11/01/2024 External Device Data STL ABSTRACTION Provider, Abstract 10/31/2024 External Device Data ST[facility] ABSTRACTION Provider, Abstract 10/10/2024 External Device Data STL ABSTRACTION Provider, [...] Description 08/10/2025 10:00 AM CDT Office Visit [facility] - [place] [address] [facility] [address] [place] [address] Daniel Brizuela MD [address] [place] [address] Health Maintenance Due Date Last Done Comments PNEUMOCOCCAL VACCINE 50+ YEA RS (2 of 2 - PCV20 or PCV21) 05/29/2016 05/29/2015 RSV VACCINE (60+ or ) (1 - 1-dose 75+ series) 2017 INFLUENZA VACCINE (#1) 2024 0, 03/08/2019, 03/08/2019, Additional history exists OSTEOPOROSIS SCREENING 06/30/2026 2, 06/30/2021, 02/12/2020, Additional history exists DTAP/TDAP/TD VACCINES (3 - T d or Tdap) 10/29/2027 10/28/2017, 12/24/2012 ZOSTER VACCINE Completed 08/25/2018, 04/29/2018 Insurance [employer] PPO MCR Care Teams Computer Tester Relationship Specialty Start Date End Date Harish Edwards MD [address] [place] [address] PCP - General Family Practice 11/28/21
--- OUTSIDE RECORDS SUMMARY | 2024-12-14 08:23 | XMS_ITS ---
Author Name Auto Generated, Auto Generated Organization [facility] Address [address] [place] [address] Phone [phone] Care Team Providers Care Reflexologist Name Role Phone Romeo Lemus Functional Status No Results Mental Status No Results Allergies and Intolerances Name Onset Date Reaction Severity leflunomide (Allergy) WedDec 20 19:15:00 EDT 20 24 Encounters Program Name Primary Diagnosis Admission Date/Time Dis charge Date/Time null WedSeptember 21 07:00 :00 EDT 2019 [facility] WedDec 20 14:01:00 EDT [...] Indication: RA Pt has home supply in [employer] WedDec 21 11:56:00 EDT 2023Jan 04 01:00:00 [...] End Date: * Text: * Fracture of unspecified part of left clavicle, subsequent encounter for fracture with routine healing* Code: * Start Date: WedDec 20 00:00:00 EDT 2023 * End Date: WedDec 22 00:00:00 EDT 2023 * Text: * Unspecified injury of muscle(s) [...] 2023 * End Date: * Text: * termite control servicer (current) use of Janus kinase inhibitor* Code: * Start Date: WedDec 20 00:00:00 EDT 2023 * End Date: * Text: * Essential (primary) hypertension* Code: * Start Date: WedDec 20 00:00:00 EDT 2023 * End Date: * Text: Vital Signs Vital Sign Measurement Date Body [...] :03 EDT 2023 Body temperature 97.80 [degF] [place] Jan 01 23:4 9:03 EDT 2023 Respiratory rate 16.00 /min [facility] Jan 01 23:4 9:03 EDT 2023 Body weight 118.00 [lb_av] [facility] Jan 01 10:57 :23 EDT 2023 Systolic Blood Pressure 172.00 mm[Hg] [facility] Jan 01 09:16:31 EDT 2023 Diastolic Blood Pressure 72.00 mm[Hg] [facility] Jan 01 09:16:31 EDT 2023 Heart Rate 63.00 /min [facility] Jan 01 09:16 :31 EDT 2023 Body temperature 97.70 [degF] [facility] Jan 01 09:1 6:31 EDT 2023 Respiratory rate 18.00 /min [facility] Jan 01 09:1 6:31 EDT 2023 Systolic Blood Pressure 142.00 mm[Hg] [facility] Jan 01 09:14:49 EDT 2023 Diastolic Blood Pressure 73.00 mm[Hg] [facility] Jan 01 09:14:49 EDT 2023 Systolic Blood Pressure 154.00 mm[Hg] [facility] Dec 31 22:43:17 EDT 2023 Diastolic Blood Pressure 80.00 mm[Hg] [facility] Dec 31 22:43:17 EDT 2023 Heart Rate 65.00 /min [facility] Dec 31 22:43 :17 EDT 2023 Body temperature 97.70 [degF] [facility] Dec 31 22:4 3:17 EDT 2023 Respiratory rate 18.00 /min [facility] Dec 31 22:4 3:17 EDT 2023 Systolic Blood Pressure 140.00 mm[Hg] [facility] Dec 31 21:36:52 EDT 2023 Diastolic Blood Pressure 74.00 mm[Hg] [facility] Dec 31 21:36:52 EDT 2023 Pulse Oximetry 99.00 % [facility] Dec 31 21:36 :52 EDT 2023 Heart Rate 63.00 /min [facility] Dec 31 21:36 :52 EDT 2023 Body weight 119.80 [lb_av] [facility] Dec 31 11:24 :49 EDT 2023 Systolic Blood Pressure 143.00 mm[Hg] [facility] Dec 31 09:07:20 EDT 2023 Diastolic Blood Pressure 71.00 mm[Hg] [facility] Dec 31 09:07:20 EDT 2023 Systolic Blood Pressure 143.00 mm[Hg] [facility] Dec 31 08:32:19 EDT 2023 Diastolic Blood Pressure 71.00 mm[Hg] [facility] Dec 31 08:32:19 EDT 2023 Heart Rate 68.00 /min WedDec 31 08:32 :19 EDT 2023 Body temperature 98.00 [degF] [facility] Dec 31 08:3 2:19 EDT 2023 Respiratory rate 17.00 /min [facility] Dec 31 08:3 2:19 EDT 2023 [...] 14:06:46 EDT 2023 Respiratory rate 18.00 /min [facility] Dec 29 14:0 6:46 EDT 2023 Body weight 121.20 [lb_av] [facility] Dec 29 13:18 :11 EDT 2023 Systolic Blood Pressure 170.00 mm[Hg] [facility] Dec 29 09:09:58 EDT 2023 Diastolic Blood Pressure 83.00 mm[Hg] [facility] Dec 29 09:09:58 EDT 2023 Systolic Blood Pressure 170.00 mm[Hg] [facility] Dec 29 09:09:58 EDT 2023 Diastolic Blood Pressure 83.00 mm[Hg] [facility] Dec 29 09:09:58 EDT 2023 Heart Rate 75.00 /min [facility] Dec 29 09:09 :58 EDT 2023 Body temperature 97.70 [degF] [facility] Dec 29 09:0 9:58 EDT 2023 Respiratory rate 18.00 /min [facility] Dec 29 09:0 9:58 EDT 2023 [...] 9:36 EDT 2023 Respiratory rate 18.00 /min [facility] Dec 26 08:2 9:36 EDT 2023 Systolic Blood Pressure 158.00 mm[Hg] [facility] Dec 25 19:42:06 EDT 2023 Diastolic Blood Pressure 72.00 mm[Hg] [facility] Dec 25 19:42:06 EDT 2023 Heart Rate 78.00 /min [facility] Dec 25 19:42 :06 EDT 2023 Body temperature 97.90 [degF] [facility] Dec 25 19:4 2:06 EDT 2023 Respiratory rate 20.00 /min [facility] Dec 25 19:4 2:06 EDT 2023 Systolic Blood Pressure 143.00 mm[Hg] [facility] Dec 25 10:12:09 EDT 2023 Diastolic Blood Pressure 86.00 mm[Hg] [facility] Dec 25 10:12:09 EDT 2023 Body weight 120.00 [lb_av] [facility] Dec 25 10:12 :09 EDT 2023 Heart Rate 84.00 /min [facility] Dec 25 10:12 :09 EDT 2023 Body temperature 97.80 [degF] [facility] Dec 25 10:1 2:09 EDT 2023 Respiratory rate 18.00 /min [facility] Dec 25 10:1 2:09 EDT 2023 Systolic Blood Pressure 150.00 mm[Hg] [facility] Dec 24 23:58:15 EDT 2023 Diastolic Blood Pressure 79.00 mm[Hg] [facility] Dec 24 23:58:15 EDT 2023 Heart Rate 73.00 /min [facility] Dec 24 23:58 :15 EDT 2023 Body temperature 97.70 [degF] [facility] Dec 24 23:5 8:15 EDT 2023 Respiratory rate 18.00 /min [facility] Dec 24 23:5 8:15 EDT 2023 [...]
--- OUTSIDE RECORDS SUMMARY | 2024-12-14 08:23 | XMS_ITS | Clinical Summary ---
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 ([facility]/HCC HHS/HCC) 05/25/2016 Other buttermaker continuous churn (current) drug therapy 7 Multiple thyroid nodules 12/09/2015 Overview (03/08/2019): Transitioned From: Thyroid nodule Hepatic cyst 10/08/2015 Medication management 07/23/2015 Overview (03/08/2019): Transitioned From: meterman use of drug Osteoporosis 07/25/2014 Strabismus 01/18/2014 [...] Master's degree (e.g., MA, MS, Benji, MEd, TOOL AND DIE ASSEMBLER, [place]) 03/08/2019 Comments No Sex and Gender Information Value Date Recorded Sex Assigned at Female 03/08/2019 8:01 AM CDT Legal Sex Female 7:01 PM CDT Gender Identity Female 03/08/2019 8:01 AM CDT Sexual Orientation Straight 03/08/2019 8: 01 AM CDT Last Filed Vital Signs Vital Sign Reading Time Taken Comments Blood Pressure 126/70 05/21/2021 1:07 PM STRETCHING PRESS OPERATOR Pulse 88 04/16/2021 1:55 PM STRETCHING PRESS OPERATOR Temperature 36.9 C (98.5 F) 04/16/2021 10:53 AM STRETCHING PRESS OPERATOR Respiratory Rate 20 04/16/2021 1:55 PM STRETCHING PRESS OPERATOR Oxygen Saturation 99% 04/16/2021 10:53 AM STRETCHING PRESS OPERATOR Inhaled Oxygen Concentration - - Weight 54 kg (119 lb) 05/21/2021 1:07 PM STRETCHING PRESS OPERATOR Height 165.1 cm (5' 5) 05/21/2021 1:07 PM STRETCHING PRESS OPERATOR Body Mass Index 19.8 05/21/2021 1:07 PM STRETCHING PRESS OPERATOR Plan of Treatment Health Maintenance Due Date [...] age to complete this topic Insurance MED [facility] [employer] MEDICARE Advance Directives Documents on File Type Date Recorded Patient Rn Utilization Management Um Expl anation Advance Directives and Living Will 07/19/2019 2:39 PM POLST - ATTEMPT - 07/07/19 Advance Directives and Living Will 11/22/2017 [employer] DIRECTIVES Care Teams Demo Coordinator Relationship Specialty Start Date End Date Romeo Lemus MD PCP - General INTERNAL MEDICINE 12/07/18 Adolfo Young MD [address] [place] [address] Consulting Physician RHEUMATOLOGY 03/08/19 Joaquín Oglesby MD [address] [address] [address] [place] [address] Consulting Physician ENDOCRINOLOGY 04/18/20
--- OUTSIDE RECORDS SUMMARY | 2024-12-14 08:23 | XMS_ITS | Referral Summary ---
Author Organization [facility] Address [address] [place] [address] Care Team Providers Care Application Software Engineer Name Role Phone Theresa Brandon MD Unavailable Harish Edwards MD Primary Care Provider [phone] Allergies Active Allergy Reactions Criticality Noted Date [...] LA and RA size. Mild TR and ND. PASP 32 mmHg.Normal LV diastolic function. IVC [...] [facility], , after-hours emergency [phone] or Temporal bone fracture 2023 Assessment & Plan (12/21/2023 1:49 PM CDT): #Blood in L EAC #Bilateral mastoid effusions - ENT c/s - Facial nerve intact - hearing intact - ofloxacin gtt BID for 5 days to left EAC for otorrhea - Follow Up: Audiogram and otology as outpatient in 4-6 weeks (call [phone] to schedule this with follow up appt) [...] Date Smoking Tobacco: Never Smokeless Tobacco: Never [employer] Utilities Answer Date Recorded In the past 12 months has [employer], gas, oil, or water [employer] threatened to shut off services in your [...] How often do you attend chur or sabianism services? More than 4 times per year 12/16/2023 Do you belong to any clubs o r organizations such as christian groups, unions, fraternal or athletic groups, or [...] hard at all 12/16/2023 [facility] [place] of Occupat ional Health - Occupational Stress [...] any time in the past 12 m [facility], were you homeless or living in a group home (including now)? No 12/16/2023 Personal Safety Answer Date Recorded Have you ever been in or are you currently in a harmful physical or emotional relationship or is someone making you feel afraid or unsafe? Denies 12/16/2023 Comments Unknown Sex and Gender Information Value Date Recorded Sex Assigned at Not on file Legal Sex Female 8:22 PM PUNCH OPERATOR Gender Identity Female 02/07/2019 1:03 PM CDT [...] Read Routine (OP Routine) 06/30/2021 2:03 PM PUNCH OPERATOR Osteopenia of multiple sites from Last 3 Months or Most Recently Relevant to Health Maintenance Results * Dexa Axial Skeleton Bone Density 1 or 2 Site (06/30/2021 2:03 PM PUNCH OPERATOR) Anatomical Region Laterality Modality Body N/A Radiographic Lyla ging Narrative 06/30/2021 4:18 PM PUNCH OPERATOR Patient Name: Patsy Kerns Date of : 1940 Date of scan: 06/30/2021 Bone mineral density was performed on a [employer] Densitometer. Based on machine cross-calibration and [...] by the International Society of Clinical Densitometry. [id number] Joaquín Oglesby MD IMG DXA PROCEDURES Final Result from Last 3 Months or Most Recently Relevant to Health Maintenance Insurance T MEDICARE UHC MEDICARE ADVANTAGE [employer] MEDICARE Advance Directives For more information, please contact: [phone] * Full Code (Latest Code Status on File) Date Activated Date Inactivated Comments 12/16/2023 12:17 PM 12/21/2023 9:33 PM Care Teams Application Software Engineer Relationship Specialty Start Date End Date Harish Edwards MD [address] [place] [address] PCP - General Family Medicine 12/16/23 Theresa Brandon MD [address] [place] [address] Medical Oncologist/Bandoleer Packer Hematology 06/21/20
--- OUTSIDE RECORDS SUMMARY | 2024-12-14 08:39 | XMS_ITS ---
Author Name Auto Generated, Auto Generated Organization [facility] Address [address] [place] [address] Phone [phone] Care Team Providers Care Static Balancer Name Role Phone Romeo Lemus Functional Status No Results Mental Status No Results Allergies and Intolerances Name Onset Date Reaction Severity leflunomide (Allergy) WedDec 20 19:15:00 EDT 20 24 Encounters Program Name Primary Diagnosis Admission Date/Time Dis charge Date/Time null WedSeptember 21 07:00 :00 EDT 2019 Maintenance Repairer Care Facility Nursing [facility] Unit WedDec 20 14:01:00 [...] Indication: RA Pt has home supply in [employer] WedDec 21 11:56:00 EDT 2023Jan 04 01:00:00 [...] 2023 * End Date: * Text: * header up (current) use of Janus kinase inhibitor* Code: [...] :03 EDT 2023 Body temperature 97.80 [degF] [place] Jan 01 23:4 9:03 EDT 2023 Respiratory rate 16.00 /min [place] Jan 01 23:4 9:03 EDT 2023 Body weight 118.00 [lb_av] [place] Jan 01 10:57 :23 EDT 2023 Systolic Blood Pressure 172.00 mm[Hg] [place] Jan 01 09:16:31 EDT 2023 Diastolic Blood Pressure 72.00 mm[Hg] [place] Jan 01 09:16:31 EDT 2023 Heart Rate 63.00 /min [place] Jan 01 09:16 :31 EDT 2023 Body temperature 97.70 [degF] [place] Jan 01 09:1 6:31 EDT 2023 Respiratory rate 18.00 /min [place] Jan 01 09:1 6:31 EDT 2023 Systolic Blood Pressure 142.00 mm[Hg] [place] Jan 01 09:14:49 EDT 2023 Diastolic Blood Pressure 73.00 mm[Hg] [place] Jan 01 09:14:49 EDT 2023 Systolic Blood Pressure 154.00 mm[Hg] [facility] Dec 31 22:43:17 EDT 2023 Diastolic Blood Pressure 80.00 mm[Hg] [facility] Dec 31 22:43:17 EDT 2023 Heart Rate 65.00 /min [facility] Dec 31 22:43 :17 EDT 2023 Body temperature 97.70 [degF] [facility] Dec 31 22:4 3:17 EDT 2023 Respiratory rate 18.00 /min [facility] Dec 31 22:4 3:17 EDT 2023 Systolic Blood Pressure 140.00 mm[Hg] [facility] Dec 31 21:36:52 EDT 2023 Diastolic Blood Pressure 74.00 mm[Hg] [facility] Dec 31 21:36:52 EDT 2023 Pulse Oximetry 99.00 % [facility] Dec 31 21:36 :52 EDT 2023 Heart Rate 63.00 /min [facility] Dec 31 21:36 :52 EDT 2023 Body weight 119.80 [lb_av] [facility] Dec 31 11:24 :49 EDT 2023 Systolic Blood Pressure 143.00 mm[Hg] [facility] Dec 31 09:07:20 EDT 2023 Diastolic Blood Pressure 71.00 mm[Hg] [facility] Dec 31 09:07:20 EDT 2023 Systolic Blood Pressure 143.00 mm[Hg] [facility] Dec 31 08:32:19 EDT 2023 Diastolic Blood Pressure 71.00 mm[Hg] [facility] Dec 31 08:32:19 EDT 2023 Heart Rate 68.00 /min WedDec 31 08:32 :19 EDT 2023 Body temperature 98.00 [degF] [facility] Dec 31 08:3 2:19 EDT 2023 Respiratory rate 17.00 /min [facility] Dec 31 08:3 2:19 EDT [...] 14:06:46 EDT 2023 Respiratory rate 18.00 /min [facility] Dec 29 14:0 6:46 EDT 2023 Body weight 121.20 [lb_av] [facility] Dec 29 13:18 :11 EDT 2023 Systolic Blood Pressure 170.00 mm[Hg] [facility] Dec 29 09:09:58 EDT 2023 Diastolic Blood Pressure 83.00 mm[Hg] [facility] Dec 29 09:09:58 EDT 2023 Systolic Blood Pressure 170.00 mm[Hg] [facility] Dec 29 09:09:58 EDT 2023 Diastolic Blood Pressure 83.00 mm[Hg] [facility] Dec 29 09:09:58 EDT 2023 Heart Rate 75.00 /min [facility] Dec 29 09:09 :58 EDT 2023 Body temperature 97.70 [degF] [facility] Dec 29 09:0 9:58 EDT 2023 Respiratory rate 18.00 /min [facility] Dec 29 09:0 9:58 EDT 2023 [...] 9:36 EDT 2023 Respiratory rate 18.00 /min [facility] Dec 26 08:2 9:36 EDT 2023 Systolic Blood Pressure 158.00 mm[Hg] [place] Dec 25 19:42:06 EDT 2023 Diastolic Blood Pressure 72.00 mm[Hg] [place] Dec 25 19:42:06 EDT 2023 Heart Rate 78.00 /min [place] Dec 25 19:42 :06 EDT 2023 Body temperature 97.90 [degF] [place] Dec 25 19:4 2:06 EDT 2023 Respiratory rate 20.00 /min [place] Dec 25 19:4 2:06 EDT 2023 Systolic Blood Pressure 143.00 mm[Hg] [place] Dec 25 10:12:09 EDT 2023 Diastolic Blood Pressure 86.00 mm[Hg] [place] Dec 25 10:12:09 EDT 2023 Body weight 120.00 [lb_av] [place] Dec 25 10:12 :09 EDT 2023 Heart Rate 84.00 /min [place] Dec 25 10:12 :09 EDT 2023 Body temperature 97.80 [degF] [place] Dec 25 10:1 2:09 EDT 2023 Respiratory rate 18.00 /min [place] Dec 25 10:1 2:09 EDT 2023 Systolic Blood Pressure 150.00 mm[Hg] [facility] Dec 24 23:58:15 EDT 2023 Diastolic Blood Pressure 79.00 mm[Hg] [facility] Dec 24 23:58:15 EDT 2023 Heart Rate 73.00 /min [facility] Dec 24 23:58 :15 EDT 2023 Body temperature 97.70 [degF] [facility] Dec 24 23:5 8:15 EDT 2023 Respiratory rate 18.00 /min [facility] Dec 24 23:5 8:15 EDT [...]
[2024-12-14 09:18] LABS: Hematocrit 40.6 % (37.0-47.0); Hemoglobin 13.4 g/dL (12.0-15.0); Immature Granulocyte Percent A 0.3 % (0-0.5); Lymphocytes Absolute Auto 0.98 K/mm3 (0.9-3.2); Mean Corpuscular HGB Conc 33.0 g/dl (32-36); Mean Corpuscular Hemoglobin 28.2 pg (26-34); Mean Corpuscular Volume 85.3 fl (80-100); Nucleated Red Blood Cells Absolute Auto 0.000 K/mm3 (0.0-0.012); Nucleated Red Blood Cells Perc 0.0 % (0.0-0.2); Platelet Count Result 204 k/mm3 (150-375); Red Blood Count 4.76 M/mm3 (4.2-5.4); White Blood Count 3.2 K/mm3 (4.5-10.0)
[2024-12-14 09:39] LABS: Add Urine Microscopic? YES; Appearance Urine Clear (Clear); Glucose Urine UA Negative (Negative); Leukocyte Esterase Ur 1+ LEU/UL (Negative); Need Manual Microscopic Reviewed; Nitrate Urine Negative (Negative); Non Pathogenic Casts 0-2; Specific Grav Ur 1.019 (1.001-1.035)
[2024-12-14 09:43] LABS: Alanine Aminotransferase 27 U/L (6-35); Albumin Level 4.1 g/dL (3.5-5.1); Alkaline Phosphatase 39 U/L (38-126); Anion Gap 6 mmol/L (4-12); Aspartate Amino Transferase 45 U/L (14-36); Bilirubin,Total 0.4 mg/dL (0.2-1.3); Blood Urea Nitrogen 23 mg/dL (7-17); CRP < 0.5 mg/dL (<1.0); Calcium 9.5 mg/dL (8.4-10.2); Carbon Dioxide 27 mmol/L (22-30); Chloride 103 mmol/L (98-107); Estimated Glomerular Filt Rate 49; Glucose 102 mg/dL (65-110); Potassium 4.6 mmol/L (3.4-5.0); Sodium 136 mmol/L (137-145); Total Protein 7.6 g/dL (6.3-8.2)
== END 2024-12-14 08:33 | disposition home or self-care (01) ==
PROVIDERS: PCP Family Medicine; Referring Provider Internal Medicine; Visit Provider Internal Medicine Endocrinology, Diabetes & Metabolism
DX: M05.79 Rheumatoid arthritis with rheumatoid factor of multiple sites without organ or systems involvement (principal); Z79.899 Other long term (current) drug therapy
CPT/HCPCS: 36415; 80053; 81001; 82306; 84100; 85025; 85652; 86140

== ENCOUNTER 2025-02-08 08:07 | Outpatient (CLI) | payer MEDICARE, SELFPAY ==
--- OUTSIDE RECORDS SUMMARY | 2025-02-08 08:15 | XMS_ITS | Encounter Summary ---
Author Organization [facility] Address [address] [place] [address] Phone Care Team Providers Care Longshore Equipment Operator Name Role Phone Romeo Lemus MD Primary Care Provider + Theresa Brandon MD Unavailable [phone] Harish Edwards MD Primary Care Provider + [phone] Encounter Details Date Type Department Care Team (Latest Contact Info) Description 04/24/2020 Orders Only [facility] Scanning, Provider Social History Tobacco Use Types Packs/Day Years Used Date Smoking Tobacco: Never Smokeless Tobacco: Never Comments Unknown Sex and Gender Information Value Date Recorded Sex Assigned at Not on file Legal Sex Female 8:22 PM EXTRUSION DIE TEMPLATE MAKER Gender Identity Female 02/07/2019 1:03 PM CDT [...] documented as of this encounter Care Teams Longshore Equipment Operator Relationship Specialty Start Date End Date Romeo Lemus MD PCP - General Internal Medicine 06/23/19 12/15/23 Harish Edwards MD [address] [place] [address] PCP - General Family Medicine 12/16/23 Theresa Brandon MD [address] [place] [address] Medical Oncologist/Power Line Installer And Repairer Hematology 06/21/20 documented as of this encounter
--- OUTSIDE RECORDS SUMMARY | 2025-02-08 08:15 | XMS_ITS | Clinical Summary ---
Author Organization [facility] Address [address] [place] [address] Care Team Providers Care Gamma Ray Operator Name Role Phone Romeo Lemus MD Primary Care Provider [phone] Source Comments [facility],non-owned Affiliates and Associated Physician Practices is amultiple site organization consisting of ambulatory clinics and hospital sitesin [place], [place], [place] and [place]. This disclosure is being madepursuant to the Care Everywhere program and may not contain all information available regarding this patient. Last updated 18.[facility] Allergies Active Allergy Reactions Criticality Noted Date [...] Problems Problem Noted Date Diagnosed Date Other termite control representative (current) drug therapy 7 Rheumatoid arthritis of medical center hospital sites without organ or system involvement [...] on file Legal Sex Female 5:24 PM AVIATION SURVIVAL TECHNICIAN Gender Identity Not on file Sexual Orientation Not on file Last Filed Vital Signs Vital Sign Reading Time Taken Comments Blood Pressure 142/88 07/01/2021 12:14 PM AVIATION SURVIVAL TECHNICIAN Pulse 78 10/29/2020 1:00 PM CDT Temperature 36.8 C (98.2 F) 07/01/2021 12:14 PM AVIATION SURVIVAL TECHNICIAN Respiratory Rate 16 10/29/2020 1:00 PM CDT Oxygen Saturation 98% 10/29/2020 1:00 PM CDT Inhaled Oxygen Concentration - - Weight 53.5 kg (118 lb) 07/01/2021 12:14 PM AVIATION SURVIVAL TECHNICIAN Height 165.1 cm (5' 5) 07/01/2021 12:14 PM AVIATION SURVIVAL TECHNICIAN Body Mass Index 19.64 07/01/2021 12:14 PM AVIATION SURVIVAL TECHNICIAN Plan of Treatment Health Maintenance Due Date Last Done Comments BONE DENSITY TESTING 1940 PNEUMOCOCCAL VACCINE 50+ (2 of 2 - PCV20 or PCV21) 05/29/2016 05/29/2015 Respiratory Syncytial Virus (RSV) Vaccine Pt: or over 60 yrs (1 - 1-dose 75+ series) 2017 DEPRESSION SCREENING 05/17/2024 MEDICARE AWV CALENDAR YEAR 2024 COVID-19 VACCINE (3 - season) 2025 07/04/2020, 06/13/2020 INFLUENZA VACCINE (#1) 2025 , 03/08/2019, 02/22/2018, [...] patient's age to complete [place] [address] [facility] MANAGED MEDICARE ADV Care Teams Gamma Ray Operator Relationship Specialty Start Date End Date Romeo Lemus MD [address] [place] [address] PCP - General 10/22/14
--- OUTSIDE RECORDS SUMMARY | 2025-02-08 08:15 | XMS_ITS | Clinical Summary ---
Author Organization [facility] Address [address] [place] [address] Care Team Providers Care Nurse Extern Name Role Phone Harish Edwards MD Primary Care Provider [phone] Allergies Active Allergy Reactions Criticality Noted Date Comments Leflunomide Hives,Rash,Unknown High 04/01/2012 Medications calcium carbonate/vitami n D3 (CALCIUM WITH VITAMIN D ORAL) Take by mouth. Active amLODIPine (NORVASC) 5 mg tablet Take 1 Tablet by mouth daily. 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 Encounters Date Type Department Care Team Description 01/16/2025 External Device Data [facility] ABSTRACTION Provider, Abstract 01/03/2025 External Device Data [facility] ABSTRACTION Provider, Abstract 12/20/2024 External Device Data [facility] ABSTRACTION Provider, Abstract [...] Description 08/10/2025 10:00 AM CDT Office Visit [facility] Oncology and Hematology [facility] [address] [facility] [address] [place] [address] Daniel Brizuela MD [address] [place] [address] Health Maintenance Due Date Last [...] 04/29/2018 Insurance [employer] PPO MCR Care Teams Nurse Extern Relationship Specialty Start Date End Date Harish Edwards MD [address] [place] [address] PCP - General Family Practice 11/28/21
--- OUTSIDE RECORDS SUMMARY | 2025-02-08 08:15 | XMS_ITS | Clinical Summary ---
Author Organization [facility] Address [address] [place] [address] Care Team Providers Care Cutting Department Supervisor Name Role Phone Theresa Brandon MD Unavailable Harish Edwards MD Primary Care Provider [phone] Allergies Active Allergy Reactions Criticality Noted Date [...] LA and RA size. Mild TR and [place]. PASP 32 mmHg.Normal LV diastolic function. IVC [...] [facility], , after-hours emergency [phone] or Temporal bone fracture 2023 Assessment & Plan (12/21/2023 1:49 PM CDT): #Blood in L EAC #Bilateral mastoid effusions - ENT c/s - Facial nerve intact - hearing intact - ofloxacin gtt BID for 5 days to left EAC for otorrhea - Follow Up: Audiogram and otology as outpatient in 4-6 weeks (call [phone] to schedule this with follow up appt) [...] Date Smoking Tobacco: Never Smokeless Tobacco: Never Iconfinder Utilities Answer Date Recorded In the past 12 months has th e electric, gas, oil, or water [employer] threatened to shut off services in your [...] or ex-partner? No 12/16/2023 Social Connection and Isolation Panel Answer Date Recorded In a typical week, how many times do you talk on the phone with family, friends, or neighbors? More than three times a week 12/16/2023 How often do you get togethe r with friends or relatives? More than three times a week 12/16/2023 How often do you attend chur ch or bahai services? More than 4 times per year 12/16/2023 Do you belong to any clubs o r organizations such as latter-day groups, unions, fraternal or athletic groups, or [...] and heating? Not hard at all 12/16/2023 [place] [facility] Occupat ional [facility] - Occupational Stress Questionnaire Answer Date [...] any time in the past 12 m [facility], were you homeless or living in a intermediate (including now)? No 12/16/2023 Personal Safety Answer Date Recorded Have you ever been in or are you currently in a harmful physical or emotional relationship or is someone making you feel afraid or unsafe? Denies 12/16/2023 Comments Unknown Sex and Gender Information Value Date Recorded Sex Assigned at Not on file Legal Sex Female 8:22 PM REMOTE SENSING RESEARCH SCIENTIST Gender Identity Female 02/07/2019 1:03 PM CDT [...] Pneumococcal vaccine 65+ (2 of 2 - PCV20 or PCV21) 05/29/2016 05/29/2015 Covid-19 Vaccine (3 - Pfizer risk series) 08/01/2020 07/04/2020, 06/13/2020 Osteoporosis Screening-Bone Density Scan 06/30/2023 06/30/2021, 02/12/2020, 02/07/2019, Additional history exists Fall Risk Assessment 12/20/2024 12/21/2023 Influenza Vaccine (#1) 2025 , 03/08/2019, 03/08/2019, Additional history exists DTaP/Tdap/Td Vaccine (3 - Td or Tdap) 10/29/2027 10/28/2017, 12/24/2012 Zoster Vaccine Completed 08/25/2018, 04/29/2018 Procedures Procedure Name Priority Date/Time Associated Diagnosis Comments DEXA AXIAL SKELETON BONE DENSITY 1 OR MORE SITES Schedule Routine, Read Routine (OP Routine) 06/30/2021 2:03 PM REMOTE SENSING RESEARCH SCIENTIST Osteopenia of multiple sites from Last 3 Months or Most Recently Relevant to Health Maintenance Results * Dexa Axial Skeleton Bone Density 1 or 2 Site (06/30/2021 2:03 PM REMOTE SENSING RESEARCH SCIENTIST) Anatomical Region Laterality Modality Body N/A Radiographic Lyla ging Narrative 06/30/2021 4:18 PM REMOTE SENSING RESEARCH SCIENTIST Patient Name: Patsy Kerns Date of : 1940 Date of scan: 06/30/2021 Bone mineral density was performed on a HoloSensorin Discovery Densitometer. Based on machine cross-calibration and [...] by the International Society of Clinical Densitometry. [id number] Joaquín Oglesby MD IMG DXA PROCEDURES Final Result from Last 3 Months or Most Recently Relevant to Health Maintenance Insurance [facility] MEDICARE [facility] MEDICARE ADVANTAGE [facility] MEDICARE Advance Directives For more information, please contact: [phone] * Full Code (Latest Code Status on File) Date Activated Date Inactivated Comments 12/16/2023 12:17 PM 12/21/2023 9:33 PM Care Teams Cutting Department Supervisor Relationship Specialty Start Date End Date Harish Edwards MD [address] [place] [address] PCP - General Family Medicine 12/16/23 Theresa Brandon MD [address] [place] [address] Medical Oncologist/Lithopress Operator Hematology 06/21/20
--- OUTSIDE RECORDS SUMMARY | 2025-02-08 08:15 | XMS_ITS | Encounter Summary ---
Author Organization [facility] Address [address] [place] [address] Phone Care Team Providers Care Textile Conservator Name Role Phone Romeo Lemus MD Primary Care Provider + Theresa Brandon MD Unavailable [phone] Harish Edwards MD Primary Care Provider [phone] Encounter Details Date Type Department Care Team (Latest Contact Info) Description 05/03/2020 Orders Only [facility] Scanning, Provider Social History Tobacco Use Types Packs/Day Years Used Date Smoking Tobacco: Never Smokeless Tobacco: Never Comments Unknown Sex and Gender Information Value Date Recorded Sex Assigned at Not on file Legal Sex Female 8:22 PM POOL MANAGER Gender Identity Female 02/07/2019 1:03 PM [...] documented as of this encounter Care Teams Textile Conservator Relationship Specialty Start Date End Date Romeo Lemus MD PCP - General Internal Medicine 06/23/19 12/15/23 Harish Edwards MD [address] [place] [address] [place] [address] PCP - General Family Medicine 12/16/23 Theresa Brandon MD [address] [place] [address] Medical Oncologist/Code Enforcement Supervisor Hematology 06/21/20 documented as of this encounter
[2025-02-08 09:15] LABS: Hematocrit 39.6 % (37.0-47.0); Hemoglobin 12.9 g/dL (12.0-15.0); Immature Granulocyte Percent A 0.3 % (0-0.5); Lymphocytes Absolute Auto 0.92 K/mm3 (0.9-3.2); Mean Corpuscular HGB Conc 32.6 g/dl (32-36); Mean Corpuscular Hemoglobin 28.9 pg (26-34); Mean Corpuscular Volume 88.6 fl (80-100); Nucleated Red Blood Cells Absolute Auto 0.000 K/mm3 (0.0-0.012); Nucleated Red Blood Cells Perc 0.0 % (0.0-0.2); Platelet Count Result 187 k/mm3 (150-375); Red Blood Count 4.47 M/mm3 (4.2-5.4); White Blood Count 3.2 K/mm3 (4.5-10.0)
[2025-02-08 09:20] LABS: Add Urine Microscopic? NO; Appearance Urine Clear (Clear); Glucose Urine UA Negative (Negative); Leukocyte Esterase Ur Negative LEU/UL (Negative); Nitrate Urine Negative (Negative); Specific Grav Ur 1.009 (1.001-1.035)
[2025-02-08 09:42] LABS: Alanine Aminotransferase 25 U/L (6-35); Albumin Level 4.1 g/dL (3.5-5.1); Alkaline Phosphatase 46 U/L (38-126); Anion Gap 7 mmol/L (4-12); Aspartate Amino Transferase 39 U/L (14-36); Bilirubin,Total 0.4 mg/dL (0.2-1.3); Blood Urea Nitrogen 16 mg/dL (7-17); CRP < 0.5 mg/dL (<1.0); Calcium 8.7 mg/dL (8.4-10.2); Carbon Dioxide 27 mmol/L (22-30); Chloride 99 mmol/L (98-107); Estimated Glomerular Filt Rate 55; Glucose 97 mg/dL (65-110); Potassium 4.3 mmol/L (3.4-5.0); Sodium 133 mmol/L (137-145); Total Protein 7.5 g/dL (6.3-8.2)
== END 2025-02-08 08:08 | disposition home or self-care (01) ==
PROVIDERS: PCP Family Medicine; Visit Provider Internal Medicine
DX: M05.79 Rheumatoid arthritis with rheumatoid factor of multiple sites without organ or systems involvement (principal); Z79.899 Other long term (current) drug therapy
CPT/HCPCS: 36415; 80053; 81003; 84100; 85025; 85652; 86140

== ENCOUNTER 2025-04-11 07:55 | Outpatient (CLI) | payer MEDICARE, SELFPAY ==
--- OUTSIDE RECORDS SUMMARY | 2025-04-11 08:02 | XMS_ITS | Clinical Summary ---
Author Organization [facility] Address [address] [place] [address] Care Team Providers Care Family Medicine Chair Name Role Phone Harish Edwards MD Primary Care Provider [phone] Allergies Active Allergy Reactions Criticality Noted Date Comments Leflunomide Hives,Rash,Unknown High 04/01/2012 Medications calcium carbonate/vitami n D3 (CALCIUM WITH VITAMIN D ORAL) Take by mouth. Active amLODIPine (NORVASC) 5 mg tablet Take 1 Tablet by mouth daily. 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 Encounters Date Type Department Care Team Description 03/14/2025 External Device Data [facility] ABSTRACTION Provider, Abstract 03/14/2025 External Device Data [facility] ABSTRACTION Provider, Abstract 03/06/2025 External Device Data [facility] ABSTRACTION Provider, Abstract 01/16/2025 External Device Data [facility] ABSTRACTION Provider, [...] Description 08/10/2025 10:00 AM CDT Office Visit [facility] Oncology and Hematology - [place] [address] [facility] [address] [place] [address] Daniel Brizuela MD [address] [facility] [address] [place] [address] Health Maintenance Due Date Last [...] VACCINE Completed 08/25/2018, 04/29/2018 Insurance [employer] PPO [facility] Care Teams Family Medicine Chair Relationship Specialty Start Date End Date Harish Edwards MD [address] [place] [address] PCP - General Family Practice 11/28/21
--- OUTSIDE RECORDS SUMMARY | 2025-04-11 08:02 | XMS_ITS | Clinical Summary ---
Author Organization [facility] Address [address] [place] [address] Care Team Providers Care Boom Stick Worker Name Role Phone Romeo Lemus MD Primary Care Provider [phone] Source Comments [facility],non-owned Affiliates and Associated Physician Practices is amultiple site organization consisting of ambulatory clinics and hospital sitesin [place], [place], [place] and [place]. This disclosure is being madepursuant to the Care Everywhere program and may not contain all information available regarding this patient. Last updated 18.[facility] Allergies Active Allergy Reactions Criticality Noted Date [...] Problems Problem Noted Date Diagnosed Date Other usp (current) drug therapy 7 Rheumatoid arthritis of [facility] sites without organ or system [...] on file Legal Sex Female 5:24 PM ASSEMBLY PRESS OPERATOR Gender Identity Not on file Sexual Orientation Not on file Last Filed Vital Signs Vital Sign Reading Time Taken Comments Blood Pressure 142/88 07/01/2021 12:14 PM ASSEMBLY PRESS OPERATOR Pulse 78 10/29/2020 1:00 PM CDT Temperature 36.8 C (98.2 F) 07/01/2021 12:14 PM ASSEMBLY PRESS OPERATOR Respiratory Rate 16 10/29/2020 1:00 PM CDT Oxygen Saturation 98% 10/29/2020 1:00 PM CDT Inhaled Oxygen Concentration - - Weight 53.5 kg (118 lb) 07/01/2021 12:14 PM ASSEMBLY PRESS OPERATOR Height 165.1 cm (5' 5) 07/01/2021 12:14 PM ASSEMBLY PRESS OPERATOR Body Mass Index 19.64 07/01/2021 12:14 PM ASSEMBLY PRESS OPERATOR Plan of Treatment Health Maintenance [...] patient's age to complete this topic Insurance [facility] MANAGED MEDICARE ADV Care Teams Boom Stick Worker Relationship Specialty Start Date End Date Romeo Lemus MD [address] [place] [address] PCP - General 10/22/14
--- OUTSIDE RECORDS SUMMARY | 2025-04-11 08:02 | XMS_ITS | Clinical Summary ---
Author Organization [facility] Address [address] [place] [address] Care Team Providers Care Lath Tier Name Role Phone Theresa Brandon MD Unavailable Harish Edwards MD Primary Care Provider [phone] Allergies Active Allergy Reactions Criticality Noted Date [...] LA and RA size. Mild TR and [place]. PASP 32 mmHg.Normal LV diastolic function. IVC [...] [facility], , after-hours emergency [phone] or Temporal bone fracture 2023 Assessment & Plan (12/21/2023 1:49 PM CDT): #Blood in L EAC #Bilateral mastoid effusions - ENT c/s - Facial nerve intact - hearing intact - ofloxacin gtt BID for 5 days to left EAC for otorrhea - Follow Up: Audiogram and otology as outpatient in 4-6 weeks (call [phone] to schedule this with follow up appt) [...] attack Father Marcos Mack Heart failure Father Mracos Mack Osteoarthritis Mother Becky Mack Osteoporosis Mother Becky Mack Family histor y of osteoporosis - (Added by TW Conv) Osteoporosis Other Family history of osteoporosis - (Added by TW Conv) Relation Name Status Comments Father Marcos Mack Mother Becky Mack Other Social History Tobacco Use Types Packs/Day Years Used Date Smoking Tobacco: Never Smokeless Tobacco: Never Zar[employer] Utilities Answer Date Recorded In the past 12 months has th e electric, gas, oil, or water [employer] threatened to shut off services in your [...] often do you attend chur ch or samaritan services? More than 4 times per year [...] and heating? Not hard at all 12/16/2023 [place] [facility] - Occupational Stress [...] any time in the past 12 m [facility], were you homeless or living in a [...] on file Legal Sex Female 8:22 PM FLANGE TURNER Gender Identity Female 02/07/2019 1:03 PM CDT [...] Read Routine (OP Routine) 06/30/2021 2:03 PM FLANGE TURNER Osteopenia of multiple sites from Last 3 Months or Most Recently Relevant to Health Maintenance Results * Dexa Axial Skeleton Bone Density 1 or 2 Site (06/30/2021 2:03 PM FLANGE TURNER) Anatomical Region Laterality Modality Body N/A Radiographic Lyla ging Narrative 06/30/2021 4:18 PM FLANGE TURNER Patient Name: Patsy Kerns Date of : 1940 Date of scan: 06/30/2021 Bone mineral density was performed on a HoloTrot Discovery Densitometer. Based on machine cross-calibration and [...] by the International Society of Clinical Densitometry. [id number] Joaquín Oglesby MD IMG DXA PROCEDURES Final Result from Last 3 Months or Most Recently Relevant to Health Maintenance Insurance AETNA MEDICARE [facility] Address: [address] [address] [place] [address] [facility] MEDICARE Advance Directives For more information, please contact: [phone] * Full Code (Latest Code Status on File) Date Activated Date Inactivated Comments 12/16/2023 12:17 PM 12/21/2023 9:33 PM Care Teams Lath Tier Relationship Specialty Start Date End Date Harish Edwards MD [address] [place] [address] PCP - General Family Medicine 12/16/23 Theresa Brandon MD [address] [place] [address] Medical Oncologist/Knockup Worker Hematology 06/21/20
--- OUTSIDE RECORDS SUMMARY | 2025-04-11 08:02 | XMS_ITS | Encounter Summary ---
Author Organization [facility] Address [address] [place] [address] Phone Care Team Providers Care Cooking Instructor Name Role Phone Romeo Lemus MD Primary Care Provider + Theresa Brandon MD Unavailable [phone] Harish Edwards MD Primary Care Provider + [phone] Encounter Details Date Type Department Care Team (Latest Contact Info) Description 05/03/2020 Orders Only [facility] Scanning, Provider Social History Tobacco Use Types Packs/Day Years Used Date Smoking Tobacco: Never Smokeless Tobacco: Never Comments Unknown Sex and Gender Information Value Date Recorded Sex Assigned at Not on file Legal Sex Female 8:22 PM BELLHOP SERVICE CAPTAIN Gender Identity Female 02/07/2019 1:03 PM CDT [...] documented as of this encounter Care Teams Cooking Instructor Relationship Specialty Start Date End Date Romeo Lemus MD PCP - General Internal Medicine 06/23/19 12/15/23 Harish Edwards MD [address] [place] [address] [place] [address] PCP - General Family Medicine 12/16/23 Theresa Brandon MD [address] [place] [address] Medical Oncologist/Bale Opener Hematology 06/21/20 documented as of this encounter
--- OUTSIDE RECORDS SUMMARY | 2025-04-11 08:02 | XMS_ITS | Encounter Summary ---
Author Organization [facility] Address [address] [place] [address] Phone Care Team Providers Care Training And Development Professional Name Role Phone Romeo Lemus MD Primary Care Provider + Theresa Brandon MD Unavailable [phone] Harish Edwards MD Primary Care Provider + [phone] Encounter Details Date Type Department Care Team (Latest Contact Info) Description 04/24/2020 Orders Only [facility] Scanning, Provider Social History Tobacco Use Types Packs/Day Years Used Date Smoking Tobacco: Never Smokeless Tobacco: Never Comments Unknown Sex and Gender Information Value Date Recorded Sex Assigned at Not on file Legal Sex Female 8:22 PM ROLLER SKATE ASSEMBLER Gender Identity Female 02/07/2019 1:03 PM CDT [...] documented as of this encounter Care Teams Training And Development Professional Relationship Specialty Start Date End Date Romeo Lemus MD PCP - General Internal Medicine 06/23/19 12/15/23 Harish Edwards MD [address] [place] [address] PCP - General Family Medicine 12/16/23 Theresa Brandon MD [address] [place] [address] Medical Oncologist/Vacuum Cleaner Repair Person Hematology 06/21/20 documented as of this encounter
--- OUTSIDE RECORDS SUMMARY | 2025-04-11 08:02 | XMS_ITS | Clinical Summary ---
Author Organization [facility] Address [address] [place] [address] Care Team Providers Care Case Specialist Name Role Phone Romeo Lemus MD Primary Care Provider [phone] Adolfo Young MD Unavailable Joaquín Oglesby MD Unavailable Allergies Active Allergy Reactions Criticality Noted Date [...] to 21 in adult [facility] without organ or system involvement with positive rheumatoid factor 05/25/2016 Other terminal manager (current) drug therapy 7 Multiple thyroid nodules 12/09/2015 Overview (03/08/2019): Transitioned From: Thyroid nodule Hepatic cyst 10/08/2015 Medication management 07/23/2015 Overview (03/08/2019): Transitioned From: director long term care use of drug Osteoporosis 07/25/2014 Strabismus 01/18/2014 [...] Master's degree (e.g., MA, MS, Benji, MEd, PRECISION FARMING COORDINATOR, [employer]) 03/08/2019 Comments No Sex and Gender Information Value Date Recorded Sex Assigned at Female 03/08/2019 8:01 AM CDT Legal Sex Female 7:01 PM CDT Gender Identity Female 03/08/2019 8:01 AM CDT Sexual Orientation Straight 03/08/2019 8: 01 AM CDT Last Filed Vital Signs Vital Sign Reading Time Taken Comments Blood Pressure 126/70 05/21/2021 1:07 PM HEADER SET UP OPERATOR Pulse 88 04/16/2021 1:55 PM HEADER SET UP OPERATOR Temperature 36.9 C (98.5 F) 04/16/2021 10:53 AM HEADER SET UP OPERATOR Respiratory Rate 20 04/16/2021 1:55 PM HEADER SET UP OPERATOR Oxygen Saturation 99% 04/16/2021 10:53 AM HEADER SET UP OPERATOR Inhaled Oxygen Concentration - - Weight 54 kg (119 lb) 05/21/2021 1:07 PM HEADER SET UP OPERATOR Height 165.1 cm (5' 5) 05/21/2021 1:07 PM HEADER SET UP OPERATOR Body Mass Index 19.8 05/21/2021 1:07 PM HEADER SET UP OPERATOR Plan of Treatment Health Maintenance Due Date Last Done Comments Hepatitis A Vaccines (1 of 2 - Risk 2-dose series) 1959 Annual Medicare Wellness Visit 12/16/2007 Pneumococcal Vaccine: 50+ Years (2 of 2 - PCV20 or PCV21) 05/29/2016 05/29/2015 RSV Immunization or 60+ Years (1 - 1-dose 75+ series) 2017 COVID-19 Vaccine (3 - season) 2025 07/04/2020, 06/13/2020 Influenza Adult (#1) 2025 03/08/2019, 02/22/2018, 02/22/2018, Additional history exists DTaP, [...] age to complete this topic Insurance [facility] MEDICARE Advance Directives Documents on File Type Date Recorded Patient Paper Carrier Expl anation Advance Directives and Living Will 07/19/2019 2:39 PM POLST - ATTEMPT - 07/07/19 Advance Directives and Living Will 11/22/2017 [employer] DIRECTIVES Care Teams Case Specialist Relationship Specialty Start Date End Date Romeo Lemus MD PCP - General INTERNAL MEDICINE 12/07/18 Adolfo Young MD [address] [place] [address] Consulting Physician RHEUMATOLOGY 03/08/19 Joaquín Oglesby MD [address] [place] [address] [address] [place] [address] Consulting Physician ENDOCRINOLOGY 04/18/20
[2025-04-11 09:07] LABS: Hematocrit 38.8 % (37.0-47.0); Hemoglobin 13.0 g/dL (12.0-15.0); Immature Granulocyte Percent A 0.2 % (0-0.5); Lymphocytes Absolute Auto 1.51 K/mm3 (0.9-3.2); Mean Corpuscular HGB Conc 33.5 g/dl (32-36); Mean Corpuscular Hemoglobin 29.7 pg (26-34); Mean Corpuscular Volume 88.8 fl (80-100); Nucleated Red Blood Cells Absolute Auto 0.000 K/mm3 (0.0-0.012); Nucleated Red Blood Cells Perc 0.0 % (0.0-0.2); Platelet Count Result 181 k/mm3 (150-375); Red Blood Count 4.37 M/mm3 (4.2-5.4); White Blood Count 4.3 K/mm3 (4.5-10.0)
[2025-04-11 09:11] LABS: Add Urine Microscopic? NO; Appearance Urine Clear (Clear); Glucose Urine UA Negative (Negative); Leukocyte Esterase Ur Negative LEU/UL (Negative); Nitrate Urine Negative (Negative); Specific Grav Ur 1.009 (1.001-1.035)
[2025-04-11 09:39] LABS: Alanine Aminotransferase 19 U/L (6-35); Albumin Level 4.0 g/dL (3.5-5.1); Alkaline Phosphatase 47 U/L (38-126); Anion Gap 5 mmol/L (4-12); Aspartate Amino Transferase 36 U/L (14-36); Bilirubin,Total 0.5 mg/dL (0.2-1.3); Blood Urea Nitrogen 14 mg/dL (7-17); CRP < 0.5 mg/dL (<1.0); Calcium 9.0 mg/dL (8.4-10.2); Carbon Dioxide 27 mmol/L (22-30); Chloride 99 mmol/L (98-107); Estimated Glomerular Filt Rate 56; Glucose 96 mg/dL (65-110); Potassium 4.3 mmol/L (3.4-5.0); Sodium 131 mmol/L (137-145); Total Protein 7.4 g/dL (6.3-8.2)
== END 2025-04-11 07:56 | disposition home or self-care (01) ==
LOC: ANHLAB 07:57
PROVIDERS: PCP Family Medicine; Visit Provider Internal Medicine
DX: M05.79 Rheumatoid arthritis with rheumatoid factor of multiple sites without organ or systems involvement (principal); R53.83 Other fatigue
CPT/HCPCS: 36415; 80053; 81003; 84100; 85025; 85652; 86140